=== PATIENT | male | born 1995 | race Caucasian/White ===

== ENCOUNTER 2019-04-06 17:20 | Inpatient (IN) ==
--- NOTE | 2019-04-06 19:02 | CT ---
CT facial bones without contrast Indication: Reported right mandibular tooth abscess Comparison: None available Technique: Multiple axial images of the facial structures were obtained from the mandible to superior portions of the orbits. Dose reduction techniques including automated exposure control (AEC) and adjustment of mA and kV were utilized. Findings: There is marked inflammatory change skin thickening and fluid noted within the right perimandibular soft tissues extending to the level of the mandibular body. There is a fluid collection within the right submandibular soft tissues measuring approximately 4.4 x 3.5 cm with a tiny focus of gas consistent with a phlegmon/abscess. Lack of IV contrast administration makes definitive size measurement limited. There are enlarged submandibular, submental and upper cervical chain lymph nodes. The mandibular and maxillary teeth demonstrate several cavities however there is no definite cortical or tract identified to suggest a source of abscess. There is mild right maxillary sinus mucosal thickening. Orbits are normal. IMPRESSION: 1.Severe inflammatory process within the right perimandibular soft tissues with a large abscess/phlegmon within the right submandibular soft tissues. There are reactive enlarged submental, submandibular and upper cervical lymph nodes. 2. No definitive source of infection as there is no mandibular cortical destruction, osteomyelitis or sinus tract within to suggest peridontal abscess /periodontal disease. 3. Several cavities are noted within the maxillary and mandibular teeth. Reported By:
--- NOTE | 2019-04-06 19:04 | DR.GENAD ---
HPI Time Seen Time Seen by Provider: 04/06/19 18:16 PCP Primary Care Physician: DR LIRIANO Complaint/Symptoms Chief Complaint Doctors Comments: A 23 y/o male who was sent to the ED to get a CT Scan done. He has had tooth infection for about 2 weeks now and has completed Clindamycin followed by Keflex. He noted jaw swelling with this. It is much swollen today than it was yesterday. He has had no fever. His PCP was trying to do an incision today and the pt. felt some drainage in his mouth. The procedure was stopped and he was sent to the ED to get a CT Scan to r/o abscess. Chief Complaint:: PT HAS HAD ABCESSED TOOTH ON RIGHT LOWER JAW ABOUT 2 WEEKS AGO. PT HAS BEEN TREATED WITH CLINDAMYCIN AND KEFLEX OUTPATIENT. PT WAS SEEN BY DR LIRIANO TODAY WHO ATTEMPTED TO DAO AREA BUT DECIDED TO SEND PT FOR CT SCAN FIRST. PT C/O CONSTANT THROBBING SEVERE PAIN INTO RIGHT LOWER JAW. Self Treatment fo Chief Complaint: TOOK IBUPROFEN AND TRAMADOL WITH NO RELIEF Nurses notes reviewed Nurses Notes Review: Yes Source History Provided: Patient and Parent Mode of Arrival Mode of Arrival: Ambulatory Timing Onset of Chief Complaint: 03/23/19 Came on: Gradually Duration Duration: Constant Location Location: Rt. jaw/lower tooth PMH PMH Past Medical History: Yes Past Medical History: Diabetes Past Medical History Comment: TYPE 1 DIABETES Past Surgical History: No Family History History of Family Medical Conditions: Yes Family Medical History: Diabetes Mellitus, Coronary Artery Disease and Hypertension Social History Does patient currently use any type of tobacco product: Yes Have you used tobacco products in the last 12 months: Yes Type of Tobacco Use: Cigarettes Does any household member use tobacco: Yes Alcohol Use: None Do you use any recreational Drugs:: No Lives With: Family Lives Where: Home infectious screening In the last 2 months have you had wt loss of >10#?: NO Have you had fever, night sweats or hemotysis?: No Have you traveled outside the country in the last 6 months?: No Isolation: Standard ROS Review of Systems Constitutional: No Symptoms Reported Eyes: No Symptoms Reported ENTM: Mouth Pain and Tooth/Dental Pain Respiratoy: No Symptoms Reported Cardiovascular: No Symptoms Reported Gastrointestinal/Abdominal: No Symptoms Reported Genitourinary: No Symptoms Reported Neurological: No Symptoms Reported Musculoskeletal: No Symptoms Reported Integumentary: No Symptoms Reported Hematologic/Lymphatic: No Symptoms Reported Endocrine: No Symptoms Reported Psychiatric: No Symptoms Reported PE Vital Signs Vitals: Temperature 98.8 F Pulse Rate 105 Respiratory Rate 20 Blood Pressure 131/79 O2 Sat by Pulse Oximetry 95 General Limitations: No Limitations General Appearance: Alert and In No Apparent Distress Head Head Exam: Normal Inspection, Atraumatic and Normocephalic Eyes Eye exam: PERRL and Scleral Icterus ENT ENT Exam: Normal Oropharynx and Mucous Membranes Moist Mouth Exam: Other (There is fullness to Rt. mandibullar gingiva at about mid area. There is tenderness but no erythema. ) Neck Neck Exam: Normal Inspection, Full ROM and Trachea Midline Chest Chest Inspection: Normal Inspection and Symmetric Chest Wall Rise Respiratory Respiratory Exam: Normal Lung Sounds Bilat Cardiovascular Cardiovascular Exam: Regular Rate, Normal Rhythm, Normal Heart Sounds, +S1 and +S2 Abdominal Exam Abdominal Exam: Normal Inspection, Normal Bowel Sounds and Soft Extremities Extremities Exam: Normal Inspection, Full ROM and Tenderness Back Back Exam: Normal Inspection and Full ROM Neurologic Neurological Exam: Alert, Oriented X3 and Normal Gait Psychiatric Psychiatric Exam: Normal Affect and Normal Mood Skin Skin Exam: Erythema and Other (swollen Rt. chin and anterior jaw with erythema.) Opioid Opioid Risk Tool Age (Roberto box if 16-45): Yes History of Preadolescent Sexual Abuse: No Total: 1 Total Score Risk Category: Low Risk Copyright: Bonilla SKY predicting aberrant behaviors Diagnosis Discharge Problem: Abscess of mandible, Dental cavities Instructions Forms: Excuse From Work
[2019-04-06] MEDS ORDERED: ZOSYN VIAL 3.375 GRAMS 3.375 G in NS 100 ML IV + SPIKE MINIBAG* 100 ML IV ONE (19:55)
[2019-04-06] MEDS ORDERED: NS 1000 ML 1,000 ML ONE (19:59)
[2019-04-06] MEDS ORDERED: ZOSYN VIAL 3.375 GRAMS IV ONE (20:00)
[2019-04-06] MEDS ORDERED: NS 100 ML IV + SPIKE MINIBAG* 100 ML ONE (20:00)
[2019-04-06 20:11] LABS: BASOPHILS % (AUTO) 0.2 % (0.2-1.0); EOSINOPHILS % (AUTO) 0.3 % (0.9-2.9); HEMATOCRIT 47.5 % (42.0-54.0); HEMOGLOBIN 16.2 g/dL (13.5-18.0); LYMPHOCYTES # (AUTO) 1.1 X10^3/uL (1.3-2.9); MEAN CORPUSCULAR HEMOGLOBIN 32.2 pg (27.0-34.0); MEAN CORPUSCULAR VOLUME 94.7 fL (80.0-100.0); MEAN PLATELET VOLUME 8.6 fL (7.4-11.0); MONOCYTES # (AUTO) 0.7 x10^3/uL (0.3-0.8); MONOCYTES % (AUTO) 4.9 % (0.0-13.0); NEUTROPHILS # (AUTO) 11.5 x10^3/uL (2.2-4.8); NEUTROPHILS % (AUTO) 86.6 % (42.0-75.0); PLATELET COUNT 351 X10^3/uL (150.0-450.0); RED BLOOD COUNT 5.02 X10^6/uL (4.7-6.0); RED CELL DISTRIBUTION WIDTH 12.5 % (11.6-16.5); WHITE BLOOD COUNT 13.3 X10^3/uL (3.6-10.0)
[2019-04-06] MEDS: NS 1000 ML 1,000 ML IV SCH (20:15)
[2019-04-06 20:23] LABS: ALANINE AMINOTRANSFERASE 42 Units/L (12-78); ALBUMIN 3.9 g/dL (3.4-5.0); ALKALINE PHOSPHATASE 205 Units/L (46-116); ASPARTATE AMINO TRANSFERASE 17 Units/L (15-37); BLOOD UREA NITROGEN 11 mg/dL (7-18); CALCIUM 9.1 mg/dL (8.5-10.1); CARBON DIOXIDE 15.9 mmol/L (21-32); CHLORIDE 90 mmol/L (98-107); SODIUM 131 mmol/L (136-145); TOTAL PROTEIN 8.9 g/dL (6.4-8.2); eGFR NON BLACK RACES > 60 (>60)
[2019-04-06 20:25] LABS: COR NA(FOR HYPERGLY) 142 mmol/L (136-145)
[2019-04-06] MEDS: HumuLIN R SC PRN (20:27)
[2019-04-06] MEDS: PERCOCET TAB 5/325 MG PO PRN (21:05)
[2019-04-06] MEDS ORDERED: LANTUS SC SCH (22:00)
[2019-04-06] MEDS: ZOSYN VIAL 3.375 GRAMS IV SCH (22:24)
[2019-04-06] MEDS: LANTUS SC SCH (22:39)
[2019-04-07] MEDS: TYLENOL 325 MG TAB PO PRN (03:30)
[2019-04-07] MEDS: NS 1000 ML 1,000 ML IV SCH ×3 (04:53→21:07)
[2019-04-07 05:20] LABS: BASOPHILS % (AUTO) 0.3 % (0.2-1.0); EOSINOPHILS # (AUTO) 0.1 x10^3/uL (0.0-0.2); EOSINOPHILS % (AUTO) 0.5 % (0.9-2.9); HEMATOCRIT 39.7 % (42.0-54.0); LYMPHOCYTES # (AUTO) 0.9 X10^3/uL (1.3-2.9); LYMPHOCYTES % (AUTO) 7.8 % (21.0-51.0); MEAN CORPUSCULAR HEMOGLOBIN 32.9 pg (27.0-34.0); MEAN CORPUSCULAR HGB CONC 35.9 g/dL (33.0-35.0); MEAN CORPUSCULAR VOLUME 91.5 fL (80.0-100.0); MEAN PLATELET VOLUME 8.8 fL (7.4-11.0); MONOCYTES # (AUTO) 0.5 x10^3/uL (0.3-0.8); MONOCYTES % (AUTO) 4.4 % (0.0-13.0); NEUTROPHILS # (AUTO) 9.5 x10^3/uL (2.2-4.8); PLATELET COUNT 297 X10^3/uL (150.0-450.0); RED BLOOD COUNT 4.33 X10^6/uL (4.7-6.0); RED CELL DISTRIBUTION WIDTH 12.3 % (11.6-16.5)
[2019-04-07 05:22] LABS: ALANINE AMINOTRANSFERASE 30 Units/L (12-78); ALKALINE PHOSPHATASE 154 Units/L (46-116); ASPARTATE AMINO TRANSFERASE 12 Units/L (15-37); BLOOD UREA NITROGEN 11 mg/dL (7-18); CALCIUM 8.3 mg/dL (8.5-10.1); CARBON DIOXIDE 21.7 mmol/L (21-32); CHLORIDE 99 mmol/L (98-107); COR CA(FOR HYPOALB) 9.1 mg/dL (8.5-10.1); COR NA(FOR HYPERGLY) 137 mmol/L (136-145); CREATININE 0.74 mg/dL (0.70-1.30); SODIUM 135 mmol/L (136-145); TOTAL PROTEIN 7.3 g/dL (6.4-8.2); eGFR NON BLACK RACES > 60 (>60)
[2019-04-07] MEDS ORDERED: NS 100 ML IV + SPIKE MINIBAG* 100 ML ONE (05:40)
[2019-04-07] MEDS: ZOSYN VIAL 3.375 GRAMS IV SCH (06:08)
[2019-04-07 06:13] LABS: HEMOGLOBIN 14.2 g/dL (13.5-18.0)
[2019-04-07] MEDS ORDERED: POTASSIUM CHL 40 MEQ/NS 0.45% 500 ML IV PRN (06:33)
[2019-04-07] MEDS ORDERED: POTASSIUM CHLORIDE LIQ 20 MEQ UDC PO PRN (06:33)
[2019-04-07] MEDS ORDERED: KLOR-CON PO PRN (06:33)
[2019-04-07] MEDS ORDERED: MICRO K EXTEN CAP 10 MEQ PO PRN (06:33)
[2019-04-07] MEDS ORDERED: K-RIDER 10 MEQ/NS 100 ML 10 MEQ/100 ML BAG IV PRN (06:33)
[2019-04-07] MEDS ORDERED: POTASSIUM CHL 60 MEQ/NS 0.45% 500 ML IV PRN (06:33)
[2019-04-07] MEDS: PERCOCET TAB 5/325 MG PO PRN ×3 (08:22→21:08)
--- NOTE | 2019-04-07 08:55 | RAD ---
History: Wheezing. Facial abscess. Study: PA chest graph comparison: None Findings: The lungs are clear and the heart and mediastinum are unremarkable. There is no edema or effusion or congestion. No bony abnormality is suggested. Impression: No evidence for active cardiopulmonary disease Reported By:
[2019-04-07 09:30] LABS: ABG HCO3 25.2 mmol/L (22-26)
[2019-04-07] MEDS: HumuLIN R SC PRN ×3 (11:58→21:18)
[2019-04-07] MEDS: ZOSYN VIAL 3.375 GRAMS 3.375 G in NS 100 ML IV + SPIKE MINIBAG* 100 ML IV SCH ×2 (14:38→22:40)
[2019-04-07 15:26] LABS: ALANINE AMINOTRANSFERASE 27 Units/L (12-78); ALKALINE PHOSPHATASE 148 Units/L (46-116); ASPARTATE AMINO TRANSFERASE 13 Units/L (15-37); BLOOD UREA NITROGEN 7 mg/dL (7-18); CALCIUM 8.4 mg/dL (8.5-10.1); CARBON DIOXIDE 24.8 mmol/L (21-32); CHLORIDE 98 mmol/L (98-107); COR CA(FOR HYPOALB) 9.2 mg/dL (8.5-10.1); COR NA(FOR HYPERGLY) 137 mmol/L (136-145); CREATININE 0.75 mg/dL (0.70-1.30); SODIUM 134 mmol/L (136-145); TOTAL PROTEIN 7.3 g/dL (6.4-8.2); eGFR NON BLACK RACES > 60 (>60)
[2019-04-07] MEDS ORDERED: TORADOL 30 MG VIAL IVP ONE (15:30)
[2019-04-07] MEDS ORDERED: MAGNESIUM SULFATE 1 GRAM/100 mL PREMIX 1 G/100 ML BAG IV ONE (17:44)
[2019-04-07] MEDS: MAGNESIUM SULFATE 1 GRAM/100 mL PREMIX 1 GM/100 ML BAG IV PRN (17:45)
[2019-04-07] MEDS: K-DUR TAB 20 MEQ PO PRN (17:45)
[2019-04-07] MEDS ORDERED: DILAUDID INJ IVP PRN (18:12)
--- NOTE | 2019-04-07 18:19 | DR.H&P ---
H&P - History & Physical for Day of: H&P Date: 04/06/19 - Chief Complaint Chief Complaint: FEVER, RIGHT JAW SWELLING WITH ABSCESS AND PAIN, DENTAL PAIN - History of Present Illness History of Present Illness: PT 23 WM ER ADMISSION AFTER PRESENTING WITH CO HE HAD ABCESSED TOOTH ON RIGHT LOWER JAW ABOUT 2 WEEKS AGO. PT HAS BEEN TREATED WITH CLINDAMYCIN AND KEFLEX OUTPATIENT. PT WAS SEEN BY DR LIRIANO'S OFFICE TODAY WHO ATTEMPTED TO DAO AREA BUT DECIDED TO SEND PT FOR CT SCAN FIRST. PT C/O CONSTANT THROBBING SEVERE PAIN INTO RIGHT LOWER JAW. PT IS TYPE I DM WITH ELEVATED BLOOD SUGAR AND FEVER ON ADMISSION. PT ADMITTED FOR IV ATBX THERAPY, PAIN CONTROL, POSSIBLE SURGICAL I & D - Past Medical History Past Medical History: Diabetes - Past Surgical History Surgical History: No History - Family History Family Medical History: Diabetes Mellitus, Coronary Artery Disease, Hypertension - Social History Does patient currently use any type of tobacco product: Yes Have you used tobacco products in the last 12 months: Yes Type of Tobacco Use: Cigarettes Does any household member use tobacco: Yes Alcohol Use: None Drug Use: None - Medications Home Medications: lorazepam [From Ativan] Allergy (Verified 04/06/19 17:33) CONTINUE taking the following medications insulin glargine [Lantus U-100 Insulin] 30 units SUBCUT HS 04/06/19 [History] insulin regular human [Novolin R Regular U-100 Insuln] See Rx Instructions .ROUTE .COMPLEX 04/06/19 [History] - Review of Systems Constitutional: Fever, Sweats Eyes: No Symptoms Reported ENT: Mouth Pain, Mouth Swelling Respiratory: No Symptoms Reported Cardiovascular: No Symptoms Reported Gastrointestinal: No Symptoms Reported Genitourinary: No Symptoms Reported Musculoskeletal: No Symptoms Reported Skin: Wound (RIGHT CHEEK, JAW AND SUBMADIBULAR ) Neurological: No Symptoms Reported - Physical Exam Vital Signs: Temperature 101.5 F Pulse Rate [Right Brachial] 94 Pulse Rate 105 Respiratory Rate 16 Blood Pressure [Right Arm] 131/76 Blood Pressure 131/79 O2 Sat by Pulse Oximetry 98 Oriented: Normal Eyes: Normal Ear: Normal Nose: Normal Throat: Normal Respiratory: RLL Exp. Wheeze, LLL Exp. Wheeze Cardiovascular: Normal : Normal Auscultation: Bowel Sounds: Normal Palpation: Normal Tenderness: Normal Skin: Red, Tender, Hot, Wound (RIGHT JAWLINE, CHEEK AND SUBMANDIBULAR EDEMA WITH DIFFUSE REDNESS, WARMTH, TENDERNESS OPEN WOUND WITHOUT D/C UNDER RIGHT JAW LINE) Musculoskeletal: Normal Psychiatric: Anxiety Affect: Anxious Speech Pattern: Clear, Appropriate - Assessment/Plan (1) Facial cellulitis Status: Acute Plan: ADMIT, IV ZOSYN. FEVER AND PAIN CONTROL. IV HYDRATION, SSI THERAPY. BLOOD SUGAR CONTROL, ADMISSION LABS INCLUDING BLOOD CULTURES. ORAL D/C CULTURE (2) Abscess of mandible Status: Acute (3) Dental cavities Status: Acute (4) Diabetes 1.5, managed as type 1 Status: Acute - Allergies Allergies/Adverse Reactions: Allergies Allergy/AdvReac Type Severity Reaction Status Date / Time lorazepam [From Ativan] Allergy Verified 04/06/19 17:33
--- NOTE | 2019-04-07 18:26 | PCM.PROG ---
Progress Note - Progress Note for Day of Date of Exam: 04/07/19 - Subjective Subjective: 23 WM ER ADMISSION LAST PM WITH RIGHT FACIAL CELLULITIS AND large abscess/phlegmon within the right submandibular soft tissues CONFIRMED ON CT. PT HAS BEEN ON IV ZOSYN SINCE ADMISSION, PREVIOUSLY FAILED ON ORAL CLINDAMYCIN AND KEFLEX PO ON OUTPT BASIS. PT HAD CO SEVERE THROBBING PAIN THIS AM, NOT CONTROLLED ON PO PERCOCET. BLOOD CULTURES OBTAIN, ORAL D/C OBTAINED FOR CULTURE. CONSULTED DR APARICIO FOR EVALUATIO OF POSSIBLE I&D. BS CONTROL, WBC 11, CO2 ON CMP IMPROVED TO 24.8. MAGNESIUM REPLACEMENT ORDERED. - Past Medical Family Social History Past Med/Fam/Surg Hx: No changes since H&P Allergies: Allergies lorazepam [From Ativan] Allergy (Verified 04/06/19 17:33) - Review of Systems ROS: No change since H&P - Vital Signs and I&O's Vital Signs: Temperature 101.5 F Pulse Rate [Right Brachial] 94 Pulse Rate 105 Respiratory Rate 16 Blood Pressure [Right Arm] 131/76 Blood Pressure 131/79 O2 Sat by Pulse Oximetry 98 Intake and Output: Intake & Output 04/05/19 04/06/19 04/07/19 04/08/19 11:59 11:59 11:59 11:59 Intake Total 360 / 360 480 / 480 Balance 360 / 360 480 / 480 - Physical Exam Oriented: Normal Eyes: Normal Ear: Normal Nose: Normal Throat: Normal Respiratory: Wheezes (MILD UPPER EXP WHEEZE) Cardiovascular: Normal : Normal Auscultation: Bowel Sounds: Normal Tenderness: Normal Skin: Red, Tender, Hot, Wound (RIGHT JAWLINE, CHEEK AND SUBMANDIBULAR EDEMA WITH DIFFUSE REDNESS, WARMTH, TENDERNESS OPEN WOUND WITHOUT D/C UNDER RIGHT JAW LINE) Musculoskeletal: Normal Psychiatric: Anxiety Affect: Anxious Speech Pattern: Clear, Appropriate - Laboratory and Diagnostics Result Diagrams: 04/07/19 04:24 04/07/19 15:00 Labs: 04/07/19 08:30 Mouth Gram Stain - Final Laboratory WBC 11.0 X10^3/uL (3.6-10.0) H 04/07/19 04:24 RBC 4.33 X10^6/uL (4.7-6.0) L 04/07/19 04:24 Hgb 14.2 g/dL (13.5-18.0) D 04/07/19 04:24 Hct 39.7 % (42.0-54.0) L 04/07/19 04:24 MCV 91.5 fL (80.0-100.0) 04/07/19 04:24 MCH 32.9 pg (27.0-34.0) 04/07/19 04:24 MCHC 35.9 g/dL (33.0-35.0) H 04/07/19 04:24 RDW 12.3 % (11.6-16.5) 04/07/19 04:24 Plt Count 297 X10^3/uL (150.0-450.0) 04/07/19 04:24 MPV 8.8 fL (7.4-11.0) 04/07/19 04:24 Neut % (Auto) 87.0 % (42.0-75.0) H 04/07/19 04:24 Lymph % (Auto) 7.8 % (21.0-51.0) L 04/07/19 04:24 [place] % (Auto) 4.4 % (0.0-13.0) 04/07/19 04:24 Eos % (Auto) 0.5 % (0.9-2.9) L 04/07/19 04:24 Baso % (Auto) 0.3 % (0.2-1.0) 04/07/19 04:24 Neut # (Auto) 9.5 x10^3/uL (2.2-4.8) H 04/07/19 04:24 Lymph # (Auto) 0.9 X10^3/uL (1.3-2.9) L 04/07/19 04:24 [place] # (Auto) 0.5 x10^3/uL (0.3-0.8) 04/07/19 04:24 Eos # (Auto) 0.1 x10^3/uL (0.0-0.2) 04/07/19 04:24 Baso # (Auto) 0.0 X10^3/uL (0.0-0.1) 04/07/19 04:24 Absolute Nucleated RBC 0.1 /100WBC 04/07/19 04:24 ESR 29 MM/HOUR (0-15) H 04/07/19 15:00 Sample Site Rb 04/07/19 09:20 ABG pH 7.430 (7.35-7.45) 04/07/19 09:20 ABG pCO2 38.0 mmHg (35.0-45.0) 04/07/19 09:20 ABG pO2 73.0 mmHg (80.0-100.0) L 04/07/19 09:20 ABG HCO3 25.2 mmol/L (22-26) 04/07/19 09:20 ABG O2 Saturation 95.0 % (90-100) 04/07/19 09:20 ABG Base Excess 1.0 mmol/L (-2.0-2.0) 04/07/19 09:20 Clint Test Na 04/07/19 09:20 A-a Gradient 29.0 mmHg 04/07/19 09:20 FiO2 21.0 04/07/19 09:20 Blood Gas Comments Pt trista well. cdn 04/07/19 09:20 Sodium 134 mmol/L (136-145) L 04/07/19 15:00 Corrected Sodium 137 mmol/L (136-145) 04/07/19 15:00 Potassium 3.4 mmol/L (3.5-5.1) L 04/07/19 15:00 Chloride 98 mmol/L (98-107) 04/07/19 15:00 Carbon Dioxide 24.8 mmol/L (21-32) 04/07/19 15:00 BUN 7 mg/dL (7-18) 04/07/19 15:00 Creatinine 0.75 mg/dL (0.70-1.30) 04/07/19 15:00 Est GFR (MDRD) Af Amer > 60 (>60) 04/07/19 15:00 Est GFR (MDRD) Non-Af > 60 (>60) 04/07/19 15:00 Glucose 245 mg/dL (65-99) H 04/07/19 15:00 Calcium 8.4 mg/dL (8.5-10.1) L 04/07/19 15:00 Corrected Calcium 9.2 mg/dL (8.5-10.1) 04/07/19 15:00 Magnesium 1.3 mg/dL (1.7-2.9) L 04/07/19 04:24 Total Bilirubin 0.30 mg/dL (0.2-1.0) 04/07/19 15:00 AST 13 Units/L (15-37) L 04/07/19 15:00 ALT 27 Units/L (12-78) 04/07/19 15:00 Alkaline Phosphatase 148 Units/L (46-116) H 04/07/19 15:00 C-Reactive Protein 35.50 mg/L (0-3.0) H 04/07/19 15:00 Total Protein 7.3 g/dL (6.4-8.2) 04/07/19 15:00 Albumin 3.0 g/dL (3.4-5.0) L 04/07/19 15:00 Globulin 4.3 g/dL (2.5-4.5) 04/07/19 15:00 Albumin/Globulin Ratio 0.7 Ratio (1.1-2.1) L 04/07/19 15:00 - Plan (1) Facial cellulitis Status: Acute Plan: IV ZOSYN. FEVER AND PAIN CONTROL. IV HYDRATION, SSI THERAPY. BLOOD SUGAR CONTROL, ADMISSION LABS INCLUDING BLOOD CULTURES. ORAL D/C CULTURE, CRP AND SED RATE. MAGNESIUM REPLACEMENT (2) Abscess of mandible Status: Acute (3) Dental cavities Status: Acute (4) Diabetes 1.5, managed as type 1 Status: Acute (5) Hypomagnesemia Status: Acute
[2019-04-07] MEDS: SNACK - Diabetic Appropriate PO SCH (21:08)
[2019-04-07] MEDS: VANCOMYCIN HCL 1 GM VIAL 1 G in D5W 250 ML IV 250 ML IV SCH (21:13)
[2019-04-07] MEDS: LANTUS SC SCH (21:21)
[2019-04-07] MEDS: PERIDEX or PERIOGARD MT SCH (23:23)
[2019-04-08] MEDS: MAGNESIUM SULFATE 1 GRAM/100 mL PREMIX 1 GM/100 ML BAG IV PRN ×3 (02:20→04:30)
[2019-04-08] MEDS: TYLENOL 325 MG TAB PO PRN (04:25)
[2019-04-08] MEDS: NS 1000 ML 1,000 ML IV SCH ×3 (04:34→20:09)
[2019-04-08 05:02] LABS: BASOPHILS % (AUTO) 0.2 % (0.2-1.0); EOSINOPHILS # (AUTO) 0.1 x10^3/uL (0.0-0.2); EOSINOPHILS % (AUTO) 0.6 % (0.9-2.9); HEMATOCRIT 39.9 % (42.0-54.0); HEMOGLOBIN 13.8 g/dL (13.5-18.0); LYMPHOCYTES % (AUTO) 10.7 % (21.0-51.0); MEAN CORPUSCULAR HGB CONC 34.7 g/dL (33.0-35.0); MEAN CORPUSCULAR VOLUME 92.3 fL (80.0-100.0); MONOCYTES # (AUTO) 0.7 x10^3/uL (0.3-0.8); MONOCYTES % (AUTO) 7.2 % (0.0-13.0); NEUTROPHILS % (AUTO) 81.3 % (42.0-75.0); PLATELET COUNT 281 X10^3/uL (150.0-450.0); RED BLOOD COUNT 4.32 X10^6/uL (4.7-6.0); RED CELL DISTRIBUTION WIDTH 12.6 % (11.6-16.5); WHITE BLOOD COUNT 9.8 X10^3/uL (3.6-10.0)
[2019-04-08 05:16] LABS: HEMOGLOBIN A1C 12.4 %
[2019-04-08 05:22] LABS: ALANINE AMINOTRANSFERASE 26 Units/L (12-78); ALBUMIN 2.9 g/dL (3.4-5.0); ALKALINE PHOSPHATASE 142 Units/L (46-116); ASPARTATE AMINO TRANSFERASE 20 Units/L (15-37); BLOOD UREA NITROGEN 7 mg/dL (7-18); CALCIUM 8.4 mg/dL (8.5-10.1); CARBON DIOXIDE 22.4 mmol/L (21-32); CHLORIDE 97 mmol/L (98-107); COR CA(FOR HYPOALB) 9.3 mg/dL (8.5-10.1); COR NA(FOR HYPERGLY) 139 mmol/L (136-145); CREATININE 0.68 mg/dL (0.70-1.30); SODIUM 133 mmol/L (136-145); TOTAL PROTEIN 6.9 g/dL (6.4-8.2); eGFR NON BLACK RACES > 60 (>60)
[2019-04-08] MEDS: VANCOMYCIN HCL 1 GM VIAL 1 G in D5W 250 ML IV 250 ML IV SCH (06:00)
[2019-04-08] MEDS: HumuLIN R SC PRN ×4 (06:00→21:20)
[2019-04-08] MEDS: ZOSYN VIAL 3.375 GRAMS 3.375 G in NS 100 ML IV + SPIKE MINIBAG* 100 ML IV SCH ×3 (07:17→22:01)
[2019-04-08] MEDS ORDERED: NS IRRIGATION 1000 ML ONE (09:40)
[2019-04-08] MEDS ORDERED: FENTANYL INJ 100 mcg ONE (10:38)
[2019-04-08] MEDS ORDERED: MORPHINE SULFATE INJ 10 MG ONE (10:39)
[2019-04-08] MEDS ORDERED: NS 1000 ML 1,000 ML ONE (10:47)
[2019-04-08] MEDS ORDERED: HumuLIN R ONE ×2 (11:00→12:42)
[2019-04-08] MEDS ORDERED: BACITRACIN VIAL ONE (11:28)
[2019-04-08] MEDS ORDERED: PHENERGAN INJ 25 MG IM PRN (12:30)
[2019-04-08] MEDS ORDERED: ZOFRAN INJ 4 MG VIAL IVP PRN (12:30)
[2019-04-08] MEDS ORDERED: DILAUDID INJ IVP PRN (12:30)
[2019-04-08] MEDS ORDERED: BENADRYL INJ 50 MG VIAL IVP PRN (12:30)
[2019-04-08] MEDS ORDERED: REGLAN INJ 10 MG VIAL IVP PRN (12:30)
--- NOTE | 2019-04-08 12:36 | OR.IMMED ---
Immediate Post-Op Note - Immediate Post-Op Note Pre-Op Diagnosis: large Rt submandibular abscess .with necrosis . DM. Post-Op Diagnosis: large necrotic abscess Rt submandibular area [id number] with cellulitis extending to the neck and face . Procedure: debridement and drainage of Rt submandibular abscess 3x2x2 cm. irrigation and packin with iodoform Surgeon/Certified Master Safecracker: Nile Estimated Blood Loss: 15 cc Condition: Stable Post Hospital Plans and Medications: change dressing daily and PRN . same IV ATB ..
[2019-04-08] MEDS ORDERED: NS 250 ML IV 250 ML ONE (13:49)
[2019-04-08] MEDS: VANCOMYCIN HCL 1 GM VIAL 1 G in NS 250 ML IV 250 ML IV SCH ×2 (14:11→21:03)
[2019-04-08] MEDS ORDERED: DIPRIVAN VIAL ONE (15:30)
[2019-04-08] MEDS ORDERED: XYLOCAINE 1 % (PLAIN) ONE (15:30)
[2019-04-08] MEDS ORDERED: VERSED ONE (15:30)
[2019-04-08] MEDS ORDERED: ULTANE GAS ONE (15:30)
[2019-04-08] MEDS ORDERED: ZOFRAN INJ 4 MG VIAL ONE (15:30)
[2019-04-08] MEDS ORDERED: TORADOL 30 MG VIAL ONE (15:30)
--- NOTE | 2019-04-08 15:33 | PCM.PROG ---
Progress Note - Progress Note for Day of Date of Exam: 04/08/19 - Subjective Subjective: 23 WM ER ADMISSION LAST PM WITH RIGHT FACIAL CELLULITIS AND large abscess/phlegmon within the right submandibular soft tissues CONFIRMED ON CT. PT HAS BEEN ON IV ZOSYN SINCE ADMISSION, PREVIOUSLY FAILED ON ORAL CLINDAMYCIN AND KEFLEX PO ON OUTPT BASIS. PT WBC 9.8 THIS AM, PT WAS FEBRILE DURING THE NIGHT, HAD ONE DOSE OF TORADOL FOR FEVER AND PAIN WHICH PT REPORTED RELIEF AND RECEIVED ONE DOSE OF IV DILAUDID DURING THE NIGHT FOR PAIN. PT IS NPO FOR SURGICAL I&D THIS AM PER DR APARICIO. WILL CONTINUE POST OPERATIVE PLAN OF CARE. BS CONTROL, INCREASED BASAL INSULIN TO 26UNITS DAILY. - Past Medical Family Social History Past Med/Fam/Surg Hx: No changes since H&P Allergies: Allergies lorazepam [From Ativan] Allergy (Verified 04/06/19 17:33) - Review of Systems ROS: No change since H&P - Vital Signs and I&O's Vital Signs: Temperature 98.0 F Pulse Rate [Right Brachial] 97 Pulse Rate 81 Respiratory Rate 18 Blood Pressure [Right Arm] 124/78 Blood Pressure [Left Arm] 126/76 Blood Pressure 120/63 O2 Sat by Pulse Oximetry 99 Intake and Output: Intake & Output 04/06/19 04/07/19 04/08/19 04/09/19 11:59 11:59 11:59 11:59 Intake Total 360 / 360 1240 / 1240 Balance 360 / 360 1240 / 1240 - Physical Exam Oriented: Normal Eyes: Normal Ear: Normal Nose: Normal Throat: Normal Respiratory: Normal Cardiovascular: Normal : Normal Auscultation: Bowel Sounds: Normal Tenderness: Normal Skin: Red, Tender, Hot, Wound (arge necrotic abscess Rt submandibular area [id number] with cellulitis extending to the neck and face .) Musculoskeletal: Normal Psychiatric: Anxiety Affect: Anxious Speech Pattern: Clear, Appropriate - Laboratory and Diagnostics Result Diagrams: 04/08/19 04:06 04/08/19 04:06 Labs: 04/08/19 12:00 Drainage Gram Stain - Final 04/07/19 08:30 Mouth Gram Stain - Final 04/07/19 08:30 Mouth Wound Culture - Preliminary Laboratory WBC 9.8 X10^3/uL (3.6-10.0) 04/08/19 04:06 RBC 4.32 X10^6/uL (4.7-6.0) L 04/08/19 04:06 Hgb 13.8 g/dL (13.5-18.0) 04/08/19 04:06 Hct 39.9 % (42.0-54.0) L 04/08/19 04:06 MCV 92.3 fL (80.0-100.0) 04/08/19 04:06 MCH 32.0 pg (27.0-34.0) 04/08/19 04:06 MCHC 34.7 g/dL (33.0-35.0) 04/08/19 04:06 RDW 12.6 % (11.6-16.5) 04/08/19 04:06 Plt Count 281 X10^3/uL (150.0-450.0) 04/08/19 04:06 MPV 9.0 fL (7.4-11.0) 04/08/19 04:06 Neut % (Auto) 81.3 % (42.0-75.0) H 04/08/19 04:06 Lymph % (Auto) 10.7 % (21.0-51.0) L 04/08/19 04:06 [place] % (Auto) 7.2 % (0.0-13.0) 04/08/19 04:06 Eos % (Auto) 0.6 % (0.9-2.9) L 04/08/19 04:06 Baso % (Auto) 0.2 % (0.2-1.0) 04/08/19 04:06 Neut # (Auto) 8.0 x10^3/uL (2.2-4.8) H 04/08/19 04:06 Lymph # (Auto) 1.0 X10^3/uL (1.3-2.9) L 04/08/19 04:06 [place] # (Auto) 0.7 x10^3/uL (0.3-0.8) 04/08/19 04:06 Eos # (Auto) 0.1 x10^3/uL (0.0-0.2) 04/08/19 04:06 Baso # (Auto) 0.0 X10^3/uL (0.0-0.1) 04/08/19 04:06 Absolute Nucleated RBC 0.2 /100WBC 04/08/19 04:06 ESR 29 MM/HOUR (0-15) H 04/07/19 15:00 Sample Site Rb 04/07/19 09:20 ABG pH 7.430 (7.35-7.45) 04/07/19 09:20 ABG pCO2 38.0 mmHg (35.0-45.0) 04/07/19 09:20 ABG pO2 73.0 mmHg (80.0-100.0) L 04/07/19 09:20 ABG HCO3 25.2 mmol/L (22-26) 04/07/19 09:20 ABG O2 Saturation 95.0 % (90-100) 04/07/19 09:20 ABG Base Excess 1.0 mmol/L (-2.0-2.0) 04/07/19 09:20 Clint Test Na 04/07/19 09:20 A-a Gradient 29.0 mmHg 04/07/19 09:20 FiO2 21.0 04/07/19 09:20 Blood Gas Comments Pt trista well. cdn 04/07/19 09:20 Sodium 133 mmol/L (136-145) L 04/08/19 04:06 Corrected Sodium 139 mmol/L (136-145) 04/08/19 04:06 Potassium 3.8 mmol/L (3.5-5.1) 04/08/19 04:06 Chloride 97 mmol/L (98-107) L 04/08/19 04:06 Carbon Dioxide 22.4 mmol/L (21-32) 04/08/19 04:06 BUN 7 mg/dL (7-18) 04/08/19 04:06 Creatinine 0.68 mg/dL (0.70-1.30) L 04/08/19 04:06 Est GFR (MDRD) Af Amer > 60 (>60) 04/08/19 04:06 Est GFR (MDRD) Non-Af > 60 (>60) 04/08/19 04:06 Glucose 357 mg/dL (65-99) H 04/08/19 04:06 Hemoglobin A1c 12.4 % 04/08/19 04:06 Lactic Acid 2.5 mmol/L (0.4-2.0) H 04/07/19 18:24 Calcium 8.4 mg/dL (8.5-10.1) L 04/08/19 04:06 Corrected Calcium 9.3 mg/dL (8.5-10.1) 04/08/19 04:06 Magnesium 1.3 mg/dL (1.7-2.9) L 04/07/19 04:24 Total Bilirubin 0.40 mg/dL (0.2-1.0) 04/08/19 04:06 AST 20 Units/L (15-37) 04/08/19 04:06 ALT 26 Units/L (12-78) 04/08/19 04:06 Alkaline Phosphatase 142 Units/L (46-116) H 04/08/19 04:06 C-Reactive Protein 35.50 mg/L (0-3.0) H 04/07/19 15:00 Total Protein 6.9 g/dL (6.4-8.2) 04/08/19 04:06 Albumin 2.9 g/dL (3.4-5.0) L 04/08/19 04:06 Globulin 4.0 g/dL (2.5-4.5) 04/08/19 04:06 Albumin/Globulin Ratio 0.7 Ratio (1.1-2.1) L 04/08/19 04:06 Tissue Pathology To follow 04/08/19 12:03 - Plan (1) Facial cellulitis Status: Acute Plan: IV ZOSYN,NPO FOR SURGICAL INTERVENTION THIS AM. FEVER AND PAIN CONTROL. IV HYDRATION, SSI THERAPY. BLOOD SUGAR CONTROL, ADMISSION LABS INCLUDING BLOOD CULTURES. ORAL D/C CULTURE, CRP AND SED RATE. MAGNESIUM REPLACEMENT (2) Abscess of mandible Status: Acute (3) Dental cavities Status: Acute (4) Diabetes 1.5, managed as type 1 Status: Acute (5) Hypomagnesemia Status: Acute
[2019-04-08] MEDS: PERIDEX or PERIOGARD MT SCH ×2 (16:19→21:03)
[2019-04-08] MEDS: SNACK - Diabetic Appropriate PO SCH (19:52)
[2019-04-08] MEDS: PERCOCET TAB 5/325 MG PO PRN (20:10)
[2019-04-08] MEDS ORDERED: PHARMACY COMMENT IV NR (20:30)
[2019-04-08 20:32] LABS: CREATININE 0.77 mg/dL (0.70-1.30); VANCOMYCIN,TROUGH 7.6 ug/mL (15-20)
[2019-04-08] MEDS: LANTUS SC SCH (21:03)
[2019-04-09] MEDS: PERCOCET TAB 5/325 MG PO PRN ×3 (03:13→23:35)
[2019-04-09] MEDS: NS 1000 ML 1,000 ML IV SCH ×4 (04:17→20:42)
[2019-04-09] MEDS: VANCOMYCIN HCL 1 GM VIAL 1 G in NS 250 ML IV 250 ML IV SCH ×3 (05:10→21:03)
[2019-04-09 05:16] LABS: BASOPHILS % (AUTO) 0.3 % (0.2-1.0); EOSINOPHILS # (AUTO) 0.2 x10^3/uL (0.0-0.2); EOSINOPHILS % (AUTO) 2.8 % (0.9-2.9); HEMATOCRIT 34.9 % (42.0-54.0); HEMOGLOBIN 12.2 g/dL (13.5-18.0); LYMPHOCYTES # (AUTO) 1.3 X10^3/uL (1.3-2.9); MEAN CORPUSCULAR HEMOGLOBIN 32.2 pg (27.0-34.0); MEAN CORPUSCULAR HGB CONC 34.9 g/dL (33.0-35.0); MEAN CORPUSCULAR VOLUME 92.2 fL (80.0-100.0); MEAN PLATELET VOLUME 8.7 fL (7.4-11.0); MONOCYTES # (AUTO) 0.6 x10^3/uL (0.3-0.8); MONOCYTES % (AUTO) 8.6 % (0.0-13.0); NEUTROPHILS # (AUTO) 4.4 x10^3/uL (2.2-4.8); NEUTROPHILS % (AUTO) 68.3 % (42.0-75.0); PLATELET COUNT 248 X10^3/uL (150.0-450.0); RED BLOOD COUNT 3.79 X10^6/uL (4.7-6.0); RED CELL DISTRIBUTION WIDTH 12.6 % (11.6-16.5); WHITE BLOOD COUNT 6.4 X10^3/uL (3.6-10.0)
[2019-04-09 05:29] LABS: ALANINE AMINOTRANSFERASE 22 Units/L (12-78); ALBUMIN 2.4 g/dL (3.4-5.0); ALKALINE PHOSPHATASE 113 Units/L (46-116); ASPARTATE AMINO TRANSFERASE 19 Units/L (15-37); BLOOD UREA NITROGEN 6 mg/dL (7-18); CARBON DIOXIDE 26.5 mmol/L (21-32); CHLORIDE 103 mmol/L (98-107); COR CA(FOR HYPOALB) 9.3 mg/dL (8.5-10.1); COR NA(FOR HYPERGLY) 143 mmol/L (136-145); CREATININE 0.73 mg/dL (0.70-1.30); SODIUM 139 mmol/L (136-145); eGFR NON BLACK RACES > 60 (>60)
[2019-04-09] MEDS: ZOSYN VIAL 3.375 GRAMS 3.375 G in NS 100 ML IV + SPIKE MINIBAG* 100 ML IV SCH ×3 (06:24→21:04)
[2019-04-09] MEDS: HumuLIN R SC PRN ×3 (06:25→20:42)
[2019-04-09] MEDS: K-DUR TAB 20 MEQ PO PRN (06:27)
[2019-04-09] MEDS: DIFLUCAN PO SCH (08:50)
[2019-04-09] MEDS: MAGNESIUM SULFATE 1 GRAM/100 mL PREMIX 1 GM/100 ML BAG IV PRN (10:00)
[2019-04-09] MEDS: PERIDEX or PERIOGARD MT SCH ×2 (10:36→20:48)
--- NOTE | 2019-04-09 13:09 | DR.H&P ---
H&P - History & Physical for Day of: H&P Date: 04/09/19 - Chief Complaint Chief Complaint: feeling much better after the drainage . only moderate drainage on the dressing . afebrile today . A1C 12 . - Past Medical History Past Medical History: Diabetes - Past Surgical History Surgical History: No History - Family History Family Medical History: Diabetes Mellitus, Coronary Artery Disease, Hypertension - Social History Does patient currently use any type of tobacco product: Yes Have you used tobacco products in the last 12 months: Yes Type of Tobacco Use: Cigarettes Does any household member use tobacco: Yes Alcohol Use: None Drug Use: None - Medications Home Medications: lorazepam [From Ativan] Allergy (Verified 04/06/19 17:33) CONTINUE taking the following medications insulin glargine [Lantus U-100 Insulin] 30 units SUBCUT HS 04/06/19 [History] insulin regular human [Novolin R Regular U-100 Insuln] See Rx Instructions .ROUTE .COMPLEX 04/06/19 [History] - Review of Systems Skin: Wound (rt sumandibular wound is dry with moderate cellulitis involving the upper neck and lower face .). denies: Other - Physical Exam Vital Signs: Temperature 99.1 F Pulse Rate [Right Brachial] 73 Pulse Rate 81 Respiratory Rate 20 Blood Pressure [Right Arm] 136/82 Blood Pressure [Left Arm] 119/47 Blood Pressure 120/63 O2 Sat by Pulse Oximetry 100 Oriented: Normal - Assessment/Plan (1) Abscess of mandible Status: Acute (2) Dental cavities Status: Acute (3) Facial cellulitis Status: Acute (4) Diabetes 1.5, managed as type 1 Status: Acute (5) Hypomagnesemia Status: Acute - Allergies Allergies/Adverse Reactions: Allergies Allergy/AdvReac Type Severity Reaction Status Date / Time lorazepam [From Ativan] Allergy Verified 04/06/19 17:33
[2019-04-09] MEDS ORDERED: PHARMACY COMMENT IV NR (20:30)
[2019-04-09] MEDS: SNACK - Diabetic Appropriate PO SCH (20:48)
[2019-04-09] MEDS: LANTUS SC SCH (21:02)
[2019-04-10 05:01] LABS: BASOPHILS % (AUTO) 0.4 % (0.2-1.0); EOSINOPHILS # (AUTO) 0.2 x10^3/uL (0.0-0.2); EOSINOPHILS % (AUTO) 3.7 % (0.9-2.9); HEMATOCRIT 34.3 % (42.0-54.0); HEMOGLOBIN 12.1 g/dL (13.5-18.0); LYMPHOCYTES # (AUTO) 1.8 X10^3/uL (1.3-2.9); LYMPHOCYTES % (AUTO) 37.3 % (21.0-51.0); MEAN CORPUSCULAR HEMOGLOBIN 32.7 pg (27.0-34.0); MEAN CORPUSCULAR HGB CONC 35.3 g/dL (33.0-35.0); MEAN CORPUSCULAR VOLUME 92.4 fL (80.0-100.0); MEAN PLATELET VOLUME 8.5 fL (7.4-11.0); MONOCYTES # (AUTO) 0.3 x10^3/uL (0.3-0.8); MONOCYTES % (AUTO) 6.7 % (0.0-13.0); NEUTROPHILS # (AUTO) 2.5 x10^3/uL (2.2-4.8); NEUTROPHILS % (AUTO) 51.9 % (42.0-75.0); PLATELET COUNT 257 X10^3/uL (150.0-450.0); RED BLOOD COUNT 3.72 X10^6/uL (4.7-6.0); RED CELL DISTRIBUTION WIDTH 12.4 % (11.6-16.5); WHITE BLOOD COUNT 4.9 X10^3/uL (3.6-10.0)
[2019-04-10 05:09] LABS: VANCOMYCIN,TROUGH 6.5 ug/mL (15-20)
[2019-04-10 05:17] LABS: ALANINE AMINOTRANSFERASE 31 Units/L (12-78); ALBUMIN 2.5 g/dL (3.4-5.0); ALKALINE PHOSPHATASE 124 Units/L (46-116); ASPARTATE AMINO TRANSFERASE 29 Units/L (15-37); BLOOD UREA NITROGEN 7 mg/dL (7-18); CALCIUM 7.9 mg/dL (8.5-10.1); CARBON DIOXIDE 27.1 mmol/L (21-32); CHLORIDE 105 mmol/L (98-107); COR CA(FOR HYPOALB) 9.1 mg/dL (8.5-10.1); COR NA(FOR HYPERGLY) 141 mmol/L (136-145); CREATININE 0.57 mg/dL (0.70-1.30); MAGNESIUM 1.6 mg/dL (1.7-2.9); SODIUM 140 mmol/L (136-145); TOTAL PROTEIN 6.1 g/dL (6.4-8.2); eGFR NON BLACK RACES > 60 (>60)
[2019-04-10] MEDS: VANCOMYCIN HCL 1 GM VIAL 1 G in NS 250 ML IV 250 ML IV SCH ×2 (05:25→14:00)
[2019-04-10] MEDS: ZOSYN VIAL 3.375 GRAMS 3.375 G in NS 100 ML IV + SPIKE MINIBAG* 100 ML IV SCH ×2 (05:25→15:00)
[2019-04-10] MEDS: NS 1000 ML 1,000 ML IV SCH (06:02)
[2019-04-10] MEDS: K-DUR TAB 20 MEQ PO PRN (06:41)
[2019-04-10] MEDS: PERIDEX or PERIOGARD MT SCH (08:30)
[2019-04-10] MEDS: DIFLUCAN PO SCH (08:30)
[2019-04-10] MEDS: HumuLIN R SC PRN ×2 (12:23→17:15)
--- NOTE | 2019-04-10 13:30 | PCM.PROG ---
Progress Note - Progress Note for Day of Date of Exam: 04/09/19 - Subjective Subjective: 23 WM ER ADMISSION LAST PM WITH RIGHT FACIAL CELLULITIS AND large abscess/phlegmon within the right submandibular soft tissues CONFIRMED ON CT. PT HAS BEEN ON IV ZOSYN SINCE ADMISSION, PREVIOUSLY FAILED ON ORAL CLINDAMYCIN AND KEFLEX PO ON OUTPT BASIS. PT WBC 6.4 THIS AM, PT WAS FEBRILE DURING THE NIGHT. S/P I&D PER DR APARICIO WITH PACKING TO WOUND, PT REPORTS PAIN IS MUCH IMPROVED. PT WOUND CUTLURE PENDING. - Past Medical Family Social History Past Med/Fam/Surg Hx: No changes since H&P Allergies: Allergies lorazepam [From Ativan] Allergy (Verified 04/06/19 17:33) - Review of Systems ROS: No change since H&P - Vital Signs and I&O's Vital Signs: Temperature 98.2 F Pulse Rate [Right Brachial] 78 Pulse Rate 81 Respiratory Rate 20 Blood Pressure [Right Arm] 133/83 Blood Pressure [Left Arm] 126/84 Blood Pressure 120/63 O2 Sat by Pulse Oximetry 100 Intake and Output: Intake & Output 04/08/19 04/09/19 04/10/19 04/11/19 11:59 11:59 11:59 11:59 Intake Total 1240 / 1240 2116 / 7 5110 / 5110 Balance 1240 / 1240 2116 / 2116 5110 / 5110 - Physical Exam Oriented: Normal Eyes: Normal Ear: Normal Nose: Normal Throat: Normal Respiratory: Normal Cardiovascular: Normal : Normal Auscultation: Bowel Sounds: Normal Tenderness: Normal Skin: Red, Tender, Hot, Wound (Large necrotic abscess Rt submandibular area [id number] with cellulitis extending to the neck and face, S/P I&D packing and dressing with moderate purulent dc, significan improved localized redness and tenderness) Musculoskeletal: Normal Psychiatric: Anxiety Affect: Anxious Speech Pattern: Clear, Appropriate - Laboratory and Diagnostics Result Diagrams: 04/10/19 04:36 04/10/19 04:36 Labs: 04/08/19 12:00 Drainage Gram Stain - Final 04/08/19 12:00 Drainage Wound Culture - Preliminary 04/07/19 08:30 Mouth Gram Stain - Final 04/07/19 08:30 Mouth Wound Culture - Final 04/07/19 08:50 Blood Blood Culture - Preliminary 04/07/19 08:42 Blood Blood Culture - Preliminary Laboratory WBC 4.9 X10^3/uL (3.6-10.0) 04/10/19 04:36 RBC 3.72 X10^6/uL (4.7-6.0) L 04/10/19 04:36 Hgb 12.1 g/dL (13.5-18.0) L 04/10/19 04:36 Hct 34.3 % (42.0-54.0) L 04/10/19 04:36 MCV 92.4 fL (80.0-100.0) 04/10/19 04:36 MCH 32.7 pg (27.0-34.0) 04/10/19 04:36 MCHC 35.3 g/dL (33.0-35.0) H 04/10/19 04:36 RDW 12.4 % (11.6-16.5) 04/10/19 04:36 Plt Count 257 X10^3/uL (150.0-450.0) 04/10/19 04:36 MPV 8.5 fL (7.4-11.0) 04/10/19 04:36 Neut % (Auto) 51.9 % (42.0-75.0) 04/10/19 04:36 Lymph % (Auto) 37.3 % (21.0-51.0) 04/10/19 04:36 [place] % (Auto) 6.7 % (0.0-13.0) 04/10/19 04:36 Eos % (Auto) 3.7 % (0.9-2.9) H 04/10/19 04:36 Baso % (Auto) 0.4 % (0.2-1.0) 04/10/19 04:36 Neut # (Auto) 2.5 x10^3/uL (2.2-4.8) 04/10/19 04:36 Lymph # (Auto) 1.8 X10^3/uL (1.3-2.9) 04/10/19 04:36 [place] # (Auto) 0.3 x10^3/uL (0.3-0.8) 04/10/19 04:36 Eos # (Auto) 0.2 x10^3/uL (0.0-0.2) 04/10/19 04:36 Baso # (Auto) 0.0 X10^3/uL (0.0-0.1) 04/10/19 04:36 Absolute Nucleated RBC 0.0 /100WBC 04/10/19 04:36 ESR 29 MM/HOUR (0-15) H 04/07/19 15:00 Sample Site Rb 04/07/19 09:20 ABG pH 7.430 (7.35-7.45) 04/07/19 09:20 ABG pCO2 38.0 mmHg (35.0-45.0) 04/07/19 09:20 ABG pO2 73.0 mmHg (80.0-100.0) L 04/07/19 09:20 ABG HCO3 25.2 mmol/L (22-26) 04/07/19 09:20 ABG O2 Saturation 95.0 % (90-100) 04/07/19 09:20 ABG Base Excess 1.0 mmol/L (-2.0-2.0) 04/07/19 09:20 Clint Test Na 04/07/19 09:20 A-a Gradient 29.0 mmHg 04/07/19 09:20 FiO2 21.0 04/07/19 09:20 Blood Gas Comments Pt trista well. cdn 04/07/19 09:20 Sodium 140 mmol/L (136-145) 04/10/19 04:36 Corrected Sodium 141 mmol/L (136-145) 04/10/19 04:36 Potassium 3.3 mmol/L (3.5-5.1) L 04/10/19 04:36 Chloride 105 mmol/L (98-107) 04/10/19 04:36 Carbon Dioxide 27.1 mmol/L (21-32) 04/10/19 04:36 BUN 7 mg/dL (7-18) 04/10/19 04:36 Creatinine 0.57 mg/dL (0.70-1.30) L 04/10/19 04:36 Est GFR (MDRD) Af Amer > 60 (>60) 04/10/19 04:36 Est GFR (MDRD) Non-Af > 60 (>60) 04/10/19 04:36 Glucose 154 mg/dL (65-99) H 04/10/19 04:36 Hemoglobin A1c 12.4 % 04/08/19 04:06 Lactic Acid 2.5 mmol/L (0.4-2.0) H 04/07/19 18:24 Calcium 7.9 mg/dL (8.5-10.1) L 04/10/19 04:36 Corrected Calcium 9.1 mg/dL (8.5-10.1) 04/10/19 04:36 Magnesium 1.6 mg/dL (1.7-2.9) L 04/10/19 04:36 Total Bilirubin 0.20 mg/dL (0.2-1.0) 04/10/19 04:36 AST 29 Units/L (15-37) 04/10/19 04:36 ALT 31 Units/L (12-78) 04/10/19 04:36 Alkaline Phosphatase 124 Units/L (46-116) H 04/10/19 04:36 C-Reactive Protein 35.50 mg/L (0-3.0) H 04/07/19 15:00 Total Protein 6.1 g/dL (6.4-8.2) L 04/10/19 04:36 Albumin 2.5 g/dL (3.4-5.0) L 04/10/19 04:36 Globulin 3.6 g/dL (2.5-4.5) 04/10/19 04:36 Albumin/Globulin Ratio 0.7 Ratio (1.1-2.1) L 04/10/19 04:36 Vancomycin Trough 6.5 ug/mL (15-20) L 04/10/19 04:36 Tissue Pathology To follow 04/08/19 12:03 - Plan (1) Facial cellulitis Status: Acute Plan: IV ZOSYN, S/O I&D. FEVER AND PAIN CONTROL. IV HYDRATION, SSI THERAPY. BLOOD SUGAR CONTROL, ADMISSION LABS INCLUDING BLOOD CULTURES. ORAL D/C CULTURE, CRP AND SED RATE. MAGNESIUM REPLACEMENT (2) Abscess of mandible Status: Acute (3) Dental cavities Status: Acute (4) Diabetes 1.5, managed as type 1 Status: Acute (5) Hypomagnesemia Status: Acute
--- NOTE | 2019-04-10 13:31 | PCM.PROG ---
Progress Note - Progress Note for Day of Date of Exam: 04/10/19 - Subjective Subjective: 23 WM ER ADMISSION LAST PM WITH RIGHT FACIAL CELLULITIS AND large abscess/phlegmon within the right submandibular soft tissues CONFIRMED ON CT. PT HAS BEEN ON IV ZOSYN SINCE ADMISSION, PREVIOUSLY FAILED ON ORAL CLINDAMYCIN AND KEFLEX PO ON OUTPT BASIS. PT WBC 4.9 THIS AM, PT WAS AFEBRILE DURING THE NIGHT. S/P I&D PER DR APARICIO WITH PACKING TO WOUND, PT REPORTS PAIN IS MUCH IMPROVED. PT WOUND CUTLURE +GRAM NEG RODS - Past Medical Family Social History Past Med/Fam/Surg Hx: No changes since H&P Allergies: Allergies lorazepam [From Ativan] Allergy (Verified 04/06/19 17:33) - Review of Systems ROS: No change since H&P - Vital Signs and I&O's Vital Signs: Temperature 98.2 F Pulse Rate [Right Brachial] 78 Pulse Rate 81 Respiratory Rate 20 Blood Pressure [Right Arm] 133/83 Blood Pressure [Left Arm] 126/84 Blood Pressure 120/63 O2 Sat by Pulse Oximetry 100 Intake and Output: Intake & Output 04/08/19 04/09/19 04/10/19 04/11/19 11:59 11:59 11:59 11:59 Intake Total 1240 / 1240 2116 / 2116 5110 / 5110 Balance 1240 / 1240 2116 / 2116 5110 / 5110 - Physical Exam Oriented: Normal Eyes: Normal Ear: Normal Nose: Normal Throat: Normal Respiratory: Normal Cardiovascular: Normal : Normal Auscultation: Bowel Sounds: Normal Tenderness: Normal Skin: Red, Tender, Hot, Wound (Large necrotic abscess Rt submandibular area [id number] with cellulitis extending to the neck and face, S/P I&D packing and dressing with moderate purulent dc, significan improved localized redness and tenderness) Musculoskeletal: Normal Psychiatric: Anxiety Affect: Anxious Speech Pattern: Clear, Appropriate - Laboratory and Diagnostics Result Diagrams: 04/10/19 04:36 04/10/19 04:36 Labs: 04/08/19 12:00 Drainage Gram Stain - Final 04/08/19 12:00 Drainage Wound Culture - Preliminary 04/07/19 08:30 Mouth Gram Stain - Final 04/07/19 08:30 Mouth Wound Culture - Final 04/07/19 08:50 Blood Blood Culture - Preliminary 04/07/19 08:42 Blood Blood Culture - Preliminary Laboratory WBC 4.9 X10^3/uL (3.6-10.0) 04/10/19 04:36 RBC 3.72 X10^6/uL (4.7-6.0) L 04/10/19 04:36 Hgb 12.1 g/dL (13.5-18.0) L 04/10/19 04:36 Hct 34.3 % (42.0-54.0) L 04/10/19 04:36 MCV 92.4 fL (80.0-100.0) 04/10/19 04:36 MCH 32.7 pg (27.0-34.0) 04/10/19 04:36 MCHC 35.3 g/dL (33.0-35.0) H 04/10/19 04:36 RDW 12.4 % (11.6-16.5) 04/10/19 04:36 Plt Count 257 X10^3/uL (150.0-450.0) 04/10/19 04:36 MPV 8.5 fL (7.4-11.0) 04/10/19 04:36 Neut % (Auto) 51.9 % (42.0-75.0) 04/10/19 04:36 Lymph % (Auto) 37.3 % (21.0-51.0) 04/10/19 04:36 [place] % (Auto) 6.7 % (0.0-13.0) 04/10/19 04:36 Eos % (Auto) 3.7 % (0.9-2.9) H 04/10/19 04:36 Baso % (Auto) 0.4 % (0.2-1.0) 04/10/19 04:36 Neut # (Auto) 2.5 x10^3/uL (2.2-4.8) 04/10/19 04:36 Lymph # (Auto) 1.8 X10^3/uL (1.3-2.9) 04/10/19 04:36 [place] # (Auto) 0.3 x10^3/uL (0.3-0.8) 04/10/19 04:36 Eos # (Auto) 0.2 x10^3/uL (0.0-0.2) 04/10/19 04:36 Baso # (Auto) 0.0 X10^3/uL (0.0-0.1) 04/10/19 04:36 Absolute Nucleated RBC 0.0 /100WBC 04/10/19 04:36 ESR 29 MM/HOUR (0-15) H 04/07/19 15:00 Sample Site Rb 04/07/19 09:20 ABG pH 7.430 (7.35-7.45) 04/07/19 09:20 ABG pCO2 38.0 mmHg (35.0-45.0) 04/07/19 09:20 ABG pO2 73.0 mmHg (80.0-100.0) L 04/07/19 09:20 ABG HCO3 25.2 mmol/L (22-26) 04/07/19 09:20 ABG O2 Saturation 95.0 % (90-100) 04/07/19 09:20 ABG Base Excess 1.0 mmol/L (-2.0-2.0) 04/07/19 09:20 Clint Test Na 04/07/19 09:20 A-a Gradient 29.0 mmHg 04/07/19 09:20 FiO2 21.0 04/07/19 09:20 Blood Gas Comments Pt trista well. cdn 04/07/19 09:20 Sodium 140 mmol/L (136-145) 04/10/19 04:36 Corrected Sodium 141 mmol/L (136-145) 04/10/19 04:36 Potassium 3.3 mmol/L (3.5-5.1) L 04/10/19 04:36 Chloride 105 mmol/L (98-107) 04/10/19 04:36 Carbon Dioxide 27.1 mmol/L (21-32) 04/10/19 04:36 BUN 7 mg/dL (7-18) 04/10/19 04:36 Creatinine 0.57 mg/dL (0.70-1.30) L 04/10/19 04:36 Est GFR (MDRD) Af Amer > 60 (>60) 04/10/19 04:36 Est GFR (MDRD) Non-Af > 60 (>60) 04/10/19 04:36 Glucose 154 mg/dL (65-99) H 04/10/19 04:36 Hemoglobin A1c 12.4 % 04/08/19 04:06 Lactic Acid 2.5 mmol/L (0.4-2.0) H 04/07/19 18:24 Calcium 7.9 mg/dL (8.5-10.1) L 04/10/19 04:36 Corrected Calcium 9.1 mg/dL (8.5-10.1) 04/10/19 04:36 Magnesium 1.6 mg/dL (1.7-2.9) L 04/10/19 04:36 Total Bilirubin 0.20 mg/dL (0.2-1.0) 04/10/19 04:36 AST 29 Units/L (15-37) 04/10/19 04:36 ALT 31 Units/L (12-78) 04/10/19 04:36 Alkaline Phosphatase 124 Units/L (46-116) H 04/10/19 04:36 C-Reactive Protein 35.50 mg/L (0-3.0) H 04/07/19 15:00 Total Protein 6.1 g/dL (6.4-8.2) L 04/10/19 04:36 Albumin 2.5 g/dL (3.4-5.0) L 04/10/19 04:36 Globulin 3.6 g/dL (2.5-4.5) 04/10/19 04:36 Albumin/Globulin Ratio 0.7 Ratio (1.1-2.1) L 04/10/19 04:36 Vancomycin Trough 6.5 ug/mL (15-20) L 04/10/19 04:36 Tissue Pathology To follow 04/08/19 12:03 - Plan (1) Facial cellulitis Status: Acute Plan: IV ZOSYN, S/O I&D. FEVER AND PAIN CONTROL. IV HYDRATION, SSI THERAPY. BLOOD SUGAR CONTROL, ADMISSION LABS INCLUDING BLOOD CULTURES. ORAL D/C CULTURE, CRP AND SED RATE. MAGNESIUM REPLACEMENT (2) Abscess of mandible Status: Acute (3) Dental cavities Status: Acute (4) Diabetes 1.5, managed as type 1 Status: Acute (5) Hypomagnesemia Status: Acute
[2019-04-10 16:14] VITALS: BP 123/80
[2019-04-10] MEDS: PERCOCET TAB 5/325 MG PO PRN (17:15)
== END 2019-04-10 18:30 | disposition home or self-care (01) | DRG 139 ==
LOC: ER 17:25 → MED/SURG 19:58
PROVIDERS: ADMIT Internal Medicine; ATTEND Internal Medicine
DX: K12.2 Cellulitis and abscess of mouth; R79.82 Elevated C-reactive protein (CRP); E10.65 Type 1 diabetes mellitus with hyperglycemia; E83.42 Hypomagnesemia; K02.9 Dental caries, unspecified; L03.211 Cellulitis of face
CPT/HCPCS: 36415; 36600; 70486; 71010; 71045; 80053; 80202; 82565; 82803; 83036; 83605; 83735; 84132; 85025; 85652; 86140; 87040; 87070; 87075; 87077; 87186; 87205; 96365; 96372; 96374; 99284; A4222; J3490; J1170; J1815; J1885; J2250; J2270; J2405; J2543; J2704; J3010; J3370; J3475; J7030; J7050; J7060

== ENCOUNTER 2021-03-08 02:03 | Inpatient (IN) ==
[2021-03-08] MEDS ORDERED: NS 1000 ML 1,000 ML IV ONE ×2 (03:01→05:27)
--- NOTE | 2021-03-08 03:09 | DR.GENAD ---
HPI Time Seen Time Seen by Provider: 03/08/21 02:11 PCP Primary Care Physician: DEANDRA Complaint/Symptoms Chief Complaint Doctors Comments: 25 y/o male presents with urinary difficulties over the past 3 days. Has dribbling urine at times. Has a weak stream. Denies fever or chills. Having lower abdominal pain, pressure like sensation. Pain is constant, worsening, does not radiate. Nothing makes it better, it is worse with palpation and ambulation. H/o IDDM, has a h/o difficult to control glucose levels. Denies being sexually active. Chief Complaint:: PT STATES" I CAN'T PEE MY PROSTATE IS ENLARGED AND I HAVE NOT PEED IN 3 DAYS" COVID-19 Coronavirus risk:travel/contact w/high risk person: No Has patient experienced Coronavirus symptoms: No Nurses notes reviewed Nurses Notes Review: Yes Source History Provided: Patient Mode of Arrival Mode of Arrival: Ambulatory Timing Onset of Chief Complaint: 03/05/21 Came on: Gradually Duration Duration: Constant How lon Duration: Days Severity Severity: Severe PMH PMH Past Medical History: Yes Past Medical History: Diabetes Past Surgical History: No Surgical History: No History Family History History of Family Medical Conditions: Yes Family Medical History: Diabetes Mellitus, Coronary Artery Disease and Hypertension Social History Does patient currently use any type of tobacco product: No Have you used tobacco products in the last 12 months: No Type of Tobacco Use: None Does any household member use tobacco: No Alcohol Use: None Do you use any recreational Drugs:: No Lives With: Family Lives Where: Home Infectious screening In the last 2 months have you had wt loss of >10#?: NO Have you had fever, night sweats or hemotysis?: No Have you traveled outside the country in the last 6 months?: No Isolation: Standard ROS Review of Systems Constitutional: Weakness; negative Chills and Fever Eyes: No Symptoms Reported ENTM: No Symptoms Reported Respiratoy: No Symptoms Reported Cardiovascular: No Symptoms Reported Gastrointestinal/Abdominal: Abdominal Pain; negative Diarrhea, Nausea and Vomiting Genitourinary: Dysuria and Other (decreased urine output) Neurological: No Symptoms Reported Musculoskeletal: No Symptoms Reported Integumentary: No Symptoms Reported Hematologic/Lymphatic: No Symptoms Reported Endocrine: No Symptoms Reported Psychiatric: No Symptoms Reported All Other Systems: Reviewed and Negative PE Vital Signs Vitals: Temperature 98.2 F Pulse Rate 120 Respiratory Rate 20 Blood Pressure [Right Arm] 123/80 Blood Pressure 127/86 O2 Sat by Pulse Oximetry 99 General Limitations: No Limitations General Appearance: Alert, Anxious and In Distress Head Head Exam: Normal Inspection Eyes Eye exam: Normal Appearance ENT ENT Exam: Normal Exam Neck Neck Exam: Normal Inspection and Full ROM Chest Chest Inspection: Normal Inspection Respiratory Respiratory Exam: Normal Lung Sounds Bilat; negative Accessory Muscle Use Respiratory Exam: Bilateral: Clear to Auscultation Cardiovascular Cardiovascular Exam: Regular Rate, Normal Rhythm, Tachycardia and Normal Heart Sounds Abdominal Exam Abdominal Exam: Tenderness (lower abdomen, with a distended bladder. Rectal - + tender, enlarged bladder. ) Extremities Extremities Exam: Normal Inspection and Full ROM Back Back Exam: Normal Inspection Neurologic Neurological Exam: Alert, Oriented X3 and CN II-XII Intact; negative Motor Sensory Deficit Psychiatric Psychiatric Exam: Anxious Skin Skin Exam: Warm and Dry MDM Differential Diagnosis Differential Diagnosis: Urinary retention , Prostatitis, poor control DM, STD, UTI COURSE Treatment Treatment: 25 y/o male presents with worsening urinary retention over the past 3 days. + distended bladder. Rectal exam shows distended bladder, no boggy pro state. Parada placed - 1200 mls out, was clamped. W/u initiated. Glucose 722. Given IV regular insulin, 12 units. Given IV rocephin to cover the urine. Reevaluation 1st: Improved (repeat glucose 526. WBC 22,800. Co2 18.3 + large amount serum acetone. Will obtain an ABG. ) 2nd: Improved (pH normal, not acidotic.) Consultation Consultation Comments: Discussed with his PCP, Dr. Kramer, accepts admission. ROR Labs Reviewed Result Diagrams: 03/08/21 03:18 03/08/21 05:11 Laboratory: WBC 22.8 X10^3/uL (3.6-10.0) H 03/08/21 03:18 RBC 4.40 X10^6/uL (4.7-6.0) L 03/08/21 03:18 Hgb 14.2 g/dL (13.5-18.0) 03/08/21 03:18 Hct 42.4 % (42.0-54.0) 03/08/21 03:18 MCV 96.3 fL (80.0-100.0) 03/08/21 03:18 MCH 32.4 pg (27.0-34.0) 03/08/21 03:18 MCHC 33.6 g/dL (33.0-35.0) 03/08/21 03:18 RDW 13.1 % (11.6-16.5) 03/08/21 03:18 Plt Count 336 X10^3/uL (150.0-450.0) 03/08/21 03:18 Plt Count Comment Adequate (ADEQUATE) 03/08/21 03:18 MPV 8.8 fL (7.4-11.0) 03/08/21 03:18 Neut % (Auto) 91.3 % (42.0-75.0) H 03/08/21 03:18 Lymph % (Auto) 3.8 % (21.0-51.0) L 03/08/21 03:18 [place] % (Auto) 4.5 % (0.0-13.0) 03/08/21 03:18 Eos % (Auto) 0.1 % (0.9-2.9) L 03/08/21 03:18 Baso % (Auto) 0.3 % (0.2-1.0) 03/08/21 03:18 Neut # (Auto) 20.8 x10^3/uL (2.2-4.8) H 03/08/21 03:18 Lymph # (Auto) 0.9 X10^3/uL (1.3-2.9) L 03/08/21 03:18 [place] # (Auto) 1.0 x10^3/uL (0.3-0.8) H 03/08/21 03:18 Eos # (Auto) 0.0 x10^3/uL (0.0-0.2) 03/08/21 03:18 Baso # (Auto) 0.1 X10^3/uL (0.0-0.1) 03/08/21 03:18 Absolute Nucleated RBC 0.0 /100WBC 03/08/21 03:18 Total Counted 100 03/08/21 03:18 Neutrophils % (Manual) 96 % (39-76) H 03/08/21 03:18 Lymphocytes % (Manual) 4 % (13-43) L 03/08/21 03:18 Plt Morphology Comment Normal (NORMAL) 03/08/21 03:18 RBC Morphology Normal (NORMAL) 03/08/21 03:18 Sample Site Lr 03/08/21 05:45 ABG pH 7.420 (7.35-7.45) 03/08/21 05:45 ABG pCO2 36.0 mmHg (35.0-45.0) 03/08/21 05:45 ABG pO2 90.0 mmHg (80.0-100.0) 03/08/21 05:45 ABG HCO3 23.4 mmol/L (22-26) 03/08/21 05:45 ABG O2 Saturation 97.0 % (90-100) 03/08/21 05:45 ABG Base Excess -0.7 mmol/L (-2.0-2.0) 03/08/21 05:45 Clint Test Pos 03/08/21 05:45 A-a Gradient 15.0 mmHg 03/08/21 05:45 FiO2 21 03/08/21 05:45 Blood Gas Comments Emmie well ae 03/08/21 05:45 Sodium 127 mmol/L (136-145) L 03/08/21 03:18 Corrected Sodium 142 mmol/L (136-145) 03/08/21 03:18 Potassium 4.4 mmol/L (3.5-5.1) 03/08/21 03:18 Chloride 90 mmol/L (98-107) L 03/08/21 03:18 Carbon Dioxide 18.3 mmol/L (21-32) L 03/08/21 03:18 BUN 8 mg/dL (7-18) 03/08/21 03:18 Creatinine 1.01 mg/dL (0.70-1.30) 03/08/21 03:18 Est GFR (MDRD) Af Amer > 60 (>60) 03/08/21 03:18 Est GFR (MDRD) Non-Af > 60 (>60) 03/08/21 03:18 Glucose 504 mg/dL (65-99) H* 03/08/21 05:11 Calcium 9.2 mg/dL (8.5-10.1) 03/08/21 03:18 Corrected Calcium TNP 03/08/21 03:18 Total Bilirubin 0.60 mg/dL (0.2-1.0) 03/08/21 03:18 AST 12 Units/L (15-37) L 03/08/21 03:18 ALT 44 Units/L (12-78) 03/08/21 03:18 Alkaline Phosphatase 203 Units/L (46-116) H 03/08/21 03:18 Total Protein 7.7 g/dL (6.4-8.2) 03/08/21 03:18 Albumin 3.5 g/dL (3.4-5.0) 03/08/21 03:18 Globulin 4.2 g/dL (2.5-4.5) 03/08/21 03:18 Albumin/Globulin Ratio 0.8 Ratio (1.1-2.1) L 03/08/21 03:18 Lipase 48 Units/L (73-393) L 03/08/21 03:18 Specimen Type Catherized urine 03/08/21 03:18 Urine Color Straw (YELLOW) 03/08/21 03:18 Urine Appearance Clear (CLEAR) 03/08/21 03:18 Urine pH 6.0 (5.0 - 8.0) 03/08/21 03:18 Ur Specific [place] 1.010 (1.000-1.030) 03/08/21 03:18 Urine Protein Negative (NEGATIVE) 03/08/21 03:18 Urine Glucose (UA) 4+ (NEGATIVE) 03/08/21 03:18 Urine Ketones 3+ (NEGATIVE) 03/08/21 03:18 Urine Occult Blood 3+ (NEGATIVE) 03/08/21 03:18 Urine Nitrite Negative (NEGATIVE) 03/08/21 03:18 Urine Bilirubin Negative (NEGATIVE) 03/08/21 03:18 Urine Urobilinogen Normal (NORMAL) 03/08/21 03:18 Ur Leukocyte Esterase 3+ (NEGATIVE) 03/08/21 03:18 Urine RBC None seen /HPF (0-3) 03/08/21 03:18 Urine WBC 10-20 /HPF (0-5) A 03/08/21 03:18 Ur Squamous Epith Cells Negative /HPF (NEGATIVE) 03/08/21 03:18 Urine Bacteria 1+ /HPF (NEGATIVE) 03/08/21 03:18 Ur Culture Indicated? Yes/culture set up 03/08/21 03:18 Urine Opiates Screen Positive (NEG=<300) 03/08/21 03:18 Urine Methadone Screen Negative (NEG=<300) 03/08/21 03:18 Ur Barbiturates Screen Negative (NEG=<200) 03/08/21 03:18 Ur Phencyclidine Scrn Negative (NEG=<25) 03/08/21 03:18 Ur Amphetamines Screen Negative (NEG=<1000) 03/08/21 03:18 U Benzodiazepines Scrn Negative (NEG=<200) 03/08/21 03:18 Urine Cocaine Screen Negative (NEG=<300) 03/08/21 03:18 U Marijuana (THC) Screen Positive (NEG=<50) A 03/08/21 03:18 Acetone, Semi-Quant Large (NEGATIVE) H 03/08/21 03:18 Ur C. trach DNA (PCR) Not detected (NOT DETECT) 03/08/21 03:18 U N.gonorrhoeae DNA PCR Not detected (NOT DETECT) 03/08/21 03:18 SARS CoV-2 RNA Rapid LILLI Negative (NEGATIVE) 03/08/21 07:15 Other Results Comments: WBC 22K. CMP shows glucose to be 722. U/A with 3+ ketones, 4+ glucose, 3+ blood. Has 10-20 WBCs, urine culture sent. Opioid Opioid Risk Tool Age (Roberto box if 16-45): Yes History of Preadolescent Sexual Abuse: No Total: 1 Total Score Risk Category: Low Risk Copyright: [place] SK[employer] predicting aberrant behaviors Diagnosis Discharge Problem: Diabetic ketoacidosis, Acute urinary retention
[2021-03-08 03:28] LABS: BASOPHILS # (AUTO) 0.1 X10^3/uL (0.0-0.1); BASOPHILS % (AUTO) 0.3 % (0.2-1.0); EOSINOPHILS % (AUTO) 0.1 % (0.9-2.9); HEMATOCRIT 42.4 % (42.0-54.0); HEMOGLOBIN 14.2 g/dL (13.5-18.0); LYMPHOCYTES # (AUTO) 0.9 X10^3/uL (1.3-2.9); LYMPHOCYTES % (AUTO) 3.8 % (21.0-51.0); MEAN CORPUSCULAR HEMOGLOBIN 32.4 pg (27.0-34.0); MEAN CORPUSCULAR HGB CONC 33.6 g/dL (33.0-35.0); MEAN CORPUSCULAR VOLUME 96.3 fL (80.0-100.0); MEAN PLATELET VOLUME 8.8 fL (7.4-11.0); MONOCYTES % (AUTO) 4.5 % (0.0-13.0); NEUTROPHILS # (AUTO) 20.8 x10^3/uL (2.2-4.8); NEUTROPHILS % (AUTO) 91.3 % (42.0-75.0); PLATELET COUNT 336 X10^3/uL (150.0-450.0); RED CELL DISTRIBUTION WIDTH 13.1 % (11.6-16.5); WHITE BLOOD COUNT 22.8 X10^3/uL (3.6-10.0)
[2021-03-08 03:30] LABS: BILIRUBIN,URINE NEGATIVE (NEGATIVE); BLOOD/HEMOGLOBIN,URINE 3+ (NEGATIVE); GLUCOSE, URINE 4+ (NEGATIVE); KETONES,URINE 3+ (NEGATIVE); LEUKOCYTE ESTERASE ,URINE 3+ (NEGATIVE); NITRITES,URINE NEGATIVE (NEGATIVE); PROTEIN,URINE NEGATIVE (NEGATIVE); UROBILINOGEN,URINE NORMAL (NORMAL)
[2021-03-08 03:40] LABS: ALANINE AMINOTRANSFERASE 44 Units/L (12-78); ALBUMIN 3.5 g/dL (3.4-5.0); ALKALINE PHOSPHATASE 203 Units/L (46-116); APPEARANCE,URINE CLEAR (CLEAR); ASPARTATE AMINO TRANSFERASE 12 Units/L (15-37); BACTERIA,URINE 1+ /HPF (NEGATIVE); BLOOD UREA NITROGEN 8 mg/dL (7-18); CALCIUM 9.2 mg/dL (8.5-10.1); CARBON DIOXIDE 18.3 mmol/L (21-32); CHLORIDE 90 mmol/L (98-107); COLOR,URINE STRAW (YELLOW); CREATININE 1.01 mg/dL (0.70-1.30); LIPASE 48 Units/L (73-393); RBC,URINE NONE SEEN /HPF (0-3); SODIUM 127 mmol/L (136-145); SQUAMOUS EPITHELIAL CELL,UR NEGATIVE /HPF (NEGATIVE); TOTAL PROTEIN 7.7 g/dL (6.4-8.2); eGFR NON BLACK RACES > 60 (>60)
[2021-03-08 03:41] LABS: COR NA(FOR HYPERGLY) 142 mmol/L (136-145)
[2021-03-08] MEDS ORDERED: NS 1000 ML 1,000 ML ONE ×3 (03:47→09:46)
[2021-03-08] MEDS ORDERED: HumuLIN R IV ONE (03:49)
[2021-03-08] MEDS ORDERED: ROCEPHIN 1 GRAM IV PREMIX 1 G/50 ML IV.SOLN. IV ONE ×2 (03:59→09:46)
[2021-03-08] MEDS ORDERED: HumuLIN R ONE (04:00)
[2021-03-08] MEDS: ROCEPHIN 1 GRAM IV PREMIX 1 G/50 ML IV.SOLN. IV ONE ×2 (04:06→10:02)
[2021-03-08 04:30] LABS: PLATELET MORPHOLOGY COMMENT NORMAL (NORMAL)
[2021-03-08 06:00] LABS: ABG ALLEN TEST POS; ABG BASE EXCESS -0.7 mmol/L (-2.0-2.0); ABG HCO3 23.4 mmol/L (22-26)
[2021-03-08] MEDS ORDERED: MYXREDLIN 100 UNIT/100 ML BAG 100 UNIT/100 ML PLAST..BAG IV PRN (09:25)
[2021-03-08] MEDS ORDERED: MYXREDLIN 100 UNIT/100 ML BAG 100 UNIT/100 ML PLAST..BAG IV ONE (09:47)
[2021-03-08] MEDS: ROCEPHIN VIAL 1 GRAM 1 G in NS 100 ML IV + SPIKE MINIBAG* 100 ML IV SCH (10:01)
[2021-03-08] MEDS: NS 1000 ML 1,000 ML IV SCH ×2 (10:02→23:10)
--- NOTE | 2021-03-08 12:06 | RAD ---
HISTORYABD PAIN, CONSTIPATION [id number]SEvaluation of the abdomen demonstrates a normal bowel gas pattern. Th ere is a normal amount of stool in the colon. No pathological soft tissue mass or calcification can b e observed. The bony structures are grossly intact.IMPRESSIONNo evidence for acute abdominal patholo gy identified.Electronically signed by: JEANETTE VILLAVICENCIO (Mar 08, 2021 12:04:09)
--- NOTE | 2021-03-08 13:36 | DR.H&P ---
H&P - History & Physical for Day of: H&P Date: 03/08/21 - Chief Complaint Chief Complaint: BLOOD SUGAR HIGH, LEGS SWELLING, NO URINE - History of Present Illness History of Present Illness: 25 y/o male presents with urinary difficulties over the past 3 days. Has dribbling urine at times. Has a weak stream. Denies fever or chills. Having lower abdominal pain, pressure like sensation. Pain is constant, worsening, does not radiate. Nothing makes it better, it is worse with palpation and ambulation. H/o IDDM, has a h/o difficult to control glucose levels. Denies being sexually active. Pt reports elevated blood sugar and lower leg swelling. Pt was in DKA confirmed on ER labs. Pt admitted for treatment of acute illness. - Past Medical History Past Medical History: Diabetes - Past Surgical History Surgical History: No History - Family History Family Medical History: Diabetes Mellitus, Coronary Artery Disease, Hypertension - Social History Does patient currently use any type of tobacco product: No Have you used tobacco products in the last 12 months: No Type of Tobacco Use: None Does any household member use tobacco: No Alcohol Use: None Drug Use: Marijuana - Medications Home Medications: lorazepam [From Ativan] Allergy (Verified 04/06/19 17:33) - Review of Systems Constitutional: Weakness Eyes: No Symptoms Reported, Vision Change Respiratory: No Symptoms Reported Cardiovascular: Edema Gastrointestinal: Nausea Genitourinary: Dysuria, Retention Musculoskeletal: No Symptoms Reported Skin: No Symptoms Reported Neurological: Weakness - Physical Exam Vital Signs: Temperature 98.2 F Pulse Rate 120 Respiratory Rate 20 Blood Pressure [Right Arm] 123/80 Blood Pressure 127/86 O2 Sat by Pulse Oximetry 99 Oriented: Normal Eyes: Normal Ear: Normal Nose: Normal Throat: Dry Respiratory: RLL Diminished, LLL Diminished Cardiovascular: Normal, Edema : Normal Auscultation: Bowel Sounds: Normal Palpation: Normal Tenderness: Epigastric, Mild Skin: Decreased Turgur Musculoskeletal: Normal Psychiatric: Normal Mood Description: Calm Speech Pattern: Clear, Appropriate - Assessment/Plan (1) Diabetic ketoacidosis Status: Acute Plan: ADMIT, INSULIN DRIP PER PROTOCOL WITH HRLY FSBS. CARDIAC MONITORING, IV HYDRATION. STRICT I&OS, REPEAT SERUM ACETONE. ABG ON ADMISSION. VERIFY HOME MEDICATION, REPEAT AM LABS, PPI THERAPY. IV ROCEPHIN (2) Acute urinary retention Status: Acute (3) UTI (urinary tract infection) Status: Acute - Allergies Allergies/Adverse Reactions: Allergies Allergy/AdvReac Type Severity Reaction Status Date / Time lorazepam [From Ativan] Allergy Verified 04/06/19 17:33
[2021-03-08 14:19] LABS: ALANINE AMINOTRANSFERASE 32 Units/L (12-78); ALBUMIN 2.6 g/dL (3.4-5.0); ALKALINE PHOSPHATASE 148 Units/L (46-116); ASPARTATE AMINO TRANSFERASE 11 Units/L (15-37); BLOOD UREA NITROGEN 5 mg/dL (7-18); CALCIUM 8.6 mg/dL (8.5-10.1); CARBON DIOXIDE 30.7 mmol/L (21-32); CHLORIDE 103 mmol/L (98-107); COR CA(FOR HYPOALB) 9.7 mg/dL (8.5-10.1); COR NA(FOR HYPERGLY) 141 mmol/L (136-145); SODIUM 138 mmol/L (136-145); TOTAL PROTEIN 6.2 g/dL (6.4-8.2); eGFR NON BLACK RACES > 60 (>60)
[2021-03-08] MEDS: SNACK - Diabetic Appropriate PO SCH (20:35)
[2021-03-09 06:11] LABS: BASOPHILS # (AUTO) 0.1 X10^3/uL (0.0-0.1); BASOPHILS % (AUTO) 0.6 % (0.2-1.0); EOSINOPHILS # (AUTO) 0.1 x10^3/uL (0.0-0.2); EOSINOPHILS % (AUTO) 0.3 % (0.9-2.9); HEMATOCRIT 42.5 % (42.0-54.0); HEMOGLOBIN 14.5 g/dL (13.5-18.0); LYMPHOCYTES # (AUTO) 1.1 X10^3/uL (1.3-2.9); MEAN CORPUSCULAR HEMOGLOBIN 31.9 pg (27.0-34.0); MEAN CORPUSCULAR VOLUME 93.9 fL (80.0-100.0); MEAN PLATELET VOLUME 8.9 fL (7.4-11.0); MONOCYTES # (AUTO) 0.7 x10^3/uL (0.3-0.8); MONOCYTES % (AUTO) 3.7 % (0.0-13.0); NEUTROPHILS # (AUTO) 17.3 x10^3/uL (2.2-4.8); NEUTROPHILS % (AUTO) 89.4 % (42.0-75.0); PLATELET COUNT 337 X10^3/uL (150.0-450.0); RED BLOOD COUNT 4.53 X10^6/uL (4.7-6.0); RED CELL DISTRIBUTION WIDTH 13.3 % (11.6-16.5); WHITE BLOOD COUNT 19.3 X10^3/uL (3.6-10.0)
[2021-03-09 06:33] LABS: ALANINE AMINOTRANSFERASE 43 Units/L (12-78); ALBUMIN 3.2 g/dL (3.4-5.0); ALKALINE PHOSPHATASE 177 Units/L (46-116); ASPARTATE AMINO TRANSFERASE 24 Units/L (15-37); BLOOD UREA NITROGEN 7 mg/dL (7-18); CALCIUM 9.2 mg/dL (8.5-10.1); CHLORIDE 100 mmol/L (98-107); COR CA(FOR HYPOALB) 9.8 mg/dL (8.5-10.1); COR NA(FOR HYPERGLY) 138 mmol/L (136-145); CREATININE 0.57 mg/dL (0.70-1.30); SODIUM 137 mmol/L (136-145); TOTAL PROTEIN 7.4 g/dL (6.4-8.2); eGFR NON BLACK RACES > 60 (>60)
[2021-03-09] MEDS: ROCEPHIN VIAL 1 GRAM 1 G in NS 100 ML IV + SPIKE MINIBAG* 100 ML IV SCH (08:31)
[2021-03-09] MEDS: MOTRIN TAB 800 MG PO PRN ×2 (11:35→19:36)
[2021-03-09] MEDS: HumuLIN R SC PRN ×2 (12:10→17:41)
[2021-03-09 13:29] VITALS: BMI 16.2
[2021-03-09] MEDS: NS 1000 ML 1,000 ML IV SCH (16:00)
[2021-03-09] MEDS ORDERED: ZOFRAN INJ 4 MG VIAL ONE (17:20)
[2021-03-09] MEDS: ZOFRAN INJ 4 MG VIAL IVP PRN (17:42)
[2021-03-09] MEDS: PROTONIX INJ 40 MG VIAL IVP SCH (21:13)
[2021-03-09] MEDS: SNACK - Diabetic Appropriate PO SCH (21:13)
[2021-03-09] MEDS: NovoLIN N or HumuLIN N SC SCH (21:21)
[2021-03-09] MEDS ORDERED: TYLENOL 325 MG TAB PO ONE (22:24)
[2021-03-09] MEDS: TYLENOL 325 MG TAB PO PRN (22:27)
[2021-03-10] MEDS: NS 1000 ML 1,000 ML IV SCH ×2 (05:49→20:35)
[2021-03-10] MEDS: NovoLIN N or HumuLIN N SC SCH ×2 (08:32→20:35)
[2021-03-10] MEDS: PROTONIX INJ 40 MG VIAL IVP SCH ×2 (08:33→20:35)
[2021-03-10] MEDS: ROCEPHIN VIAL 1 GRAM 1 G in NS 100 ML IV + SPIKE MINIBAG* 100 ML IV SCH (08:33)
[2021-03-10] MEDS: VISTARIL PO PRN ×2 (08:34→23:11)
[2021-03-10 10:18] LABS: BASOPHILS # (AUTO) 0.1 X10^3/uL (0.0-0.1); BASOPHILS % (AUTO) 0.6 % (0.2-1.0); EOSINOPHILS % (AUTO) 0.1 % (0.9-2.9); HEMATOCRIT 37.8 % (42.0-54.0); HEMOGLOBIN 12.9 g/dL (13.5-18.0); LYMPHOCYTES # (AUTO) 0.2 X10^3/uL (1.3-2.9); MEAN CORPUSCULAR HEMOGLOBIN 31.7 pg (27.0-34.0); MEAN CORPUSCULAR VOLUME 93.1 fL (80.0-100.0); MEAN PLATELET VOLUME 8.7 fL (7.4-11.0); MONOCYTES # (AUTO) 0.2 x10^3/uL (0.3-0.8); MONOCYTES % (AUTO) 1.4 % (0.0-13.0); NEUTROPHILS # (AUTO) 14.9 x10^3/uL (2.2-4.8); NEUTROPHILS % (AUTO) 96.9 % (42.0-75.0); PLATELET COUNT 179 X10^3/uL (150.0-450.0); RED BLOOD COUNT 4.06 X10^6/uL (4.7-6.0); RED CELL DISTRIBUTION WIDTH 13.5 % (11.6-16.5); WHITE BLOOD COUNT 15.4 X10^3/uL (3.6-10.0)
[2021-03-10 10:27] LABS: SERUM ACETONE SMALL (NEGATIVE)
[2021-03-10 10:28] LABS: ALANINE AMINOTRANSFERASE 46 Units/L (12-78); ALBUMIN 2.4 g/dL (3.4-5.0); ALKALINE PHOSPHATASE 191 Units/L (46-116); ASPARTATE AMINO TRANSFERASE 50 Units/L (15-37); BLOOD UREA NITROGEN 10 mg/dL (7-18); CALCIUM 8.1 mg/dL (8.5-10.1); CARBON DIOXIDE 25.9 mmol/L (21-32); CHLORIDE 100 mmol/L (98-107); COR CA(FOR HYPOALB) 9.4 mg/dL (8.5-10.1); COR NA(FOR HYPERGLY) 140 mmol/L (136-145); CREATININE 0.72 mg/dL (0.70-1.30); SODIUM 137 mmol/L (136-145); TOTAL PROTEIN 5.9 g/dL (6.4-8.2); eGFR NON BLACK RACES > 60 (>60)
[2021-03-10 10:36] LABS: BAND NEUTROPHILS % 2 % (0-10)
[2021-03-10 10:37] LABS: PLATELET MORPHOLOGY COMMENT NORMAL (NORMAL)
--- NOTE | 2021-03-10 11:46 | CT ---
HISTORYSTOOL AND URINE INCONTIENCESTUDYLUMBAR SPINE W/O CONCOMPARISONNoneTECHNIQUEMultiple CT axial images of the lumbar spine were obtained without IV contrast. Coronal and sagittal images were reconstructed. Dose reduction techniques included Automated Exposure Control (AEC) and adjustment of mA and kV.FINDINGSThere is no significant scoliosis. The usual lordosis is maintained. The heights of the vertebral bodies are normal. No spondylolisthesis. There is no fracture. No significant degenerative change.I do not see any obvious disc herniation given the limitations of the technique.No hydronephrosis. No abdominal aortic aneurysm. Calcified gallstone is present. Parada balloon catheter in the urinary bladder.IMPRESSION1. No significant abnormality in the lumbar spine2. CholelithiasisElectronically signed by: Donato Ritchie (Mar 10, 2021 11:43:53)
[2021-03-10] MEDS: CIPRO IV 400 MG PREMIX* 400 MG/200 ML IV.SOLN. IV SCH ×2 (11:50→22:00)
[2021-03-10] MEDS: FLAGYL IV PREMIX 500 MG BAG 500 MG/100 ML BAG IV SCH ×3 (13:30→20:35)
--- NOTE | 2021-03-10 13:44 | CT ---
HISTORYUrinary retention, abdominal painSTUDYCT abdomen and pelvis without contrastCOMPARISONNoneTECHNIQUEMultiple axial images of the abdomen and pelvis were obtained from the lung bases to the pubic symphysis without the administration of IV contrast. Oral contrast was given for bowel opacification dose reduction techniques including Automated Exposure Control (AEC) and adjustment of mA and kV were utilized.FINDINGSThe visualized portions of the lung bases are unremarkable . The liver, spleen, pancreas, kidneys, and adrenal glands are unremarkable in their CT appearance. The gallbladder appears contracted with gallbladder wall thickening or edema. The findings are nonspecific. Distension of the central small bowel is observed with filling defect noted extending within the left upper quadrant and may be on the basis of associated intussusception with dilatation of small bowel in the left upper quadrant noted. The findings may be transit but continued evaluation will be needed. The colon is unremarkable. Specifically, there is no diverticulosis noted within the sigmoid colon. A Parada catheter is noted the urinary bladder with air within the nondependent portion presumably on the basis of recent Parada catheter placement. The bony structures are grossly intact.IMPRESSIONNonspecific gallbladder wall thickening and edema. The gallbladder does appear to be contracted.Filling defect with small bowel distention and dilatation of the left upper quadrant. Proximal small bowel distention is noted with contrast proximal to this finding. Findings may represent transit small bowel intussusception or associated mass and leading edge. Continued clinical follow-up will be needed. Evaluation is limited without the benefit of IV contrast.Electronically signed by: JO DAVIES (Mar 10, 2021 13:42:09)
[2021-03-10 16:25] LABS: CRYPTOSPORIDIUM PARVUM ANTIGEN NEGATIVE (NEGATIVE); GIARDIA LAMBLIA ANTIGEN NEGATIVE (NEGATIVE)
[2021-03-10] MEDS: SNACK - Diabetic Appropriate PO SCH (20:36)
[2021-03-11] MEDS ORDERED: NS 100 ML IV 0 ML ONE (03:28)
[2021-03-11] MEDS: FLAGYL IV PREMIX 500 MG BAG 500 MG/100 ML BAG IV SCH ×4 (05:10→21:39)
[2021-03-11] MEDS: CIPRO IV 400 MG PREMIX* 400 MG/200 ML IV.SOLN. IV SCH ×2 (08:19→20:35)
[2021-03-11] MEDS: PROTONIX INJ 40 MG VIAL IVP SCH ×2 (08:19→20:37)
[2021-03-11] MEDS: NovoLIN N or HumuLIN N SC SCH ×3 (08:20→22:39)
[2021-03-11] MEDS: NS 1000 ML 1,000 ML IV SCH ×2 (08:32→22:18)
--- NOTE | 2021-03-11 10:13 | DR.PROGNOT ---
Hospital Progress Notes - Progress Note for Day of: Progress Note Date: 03/11/21 - Chief Complaint Chief Complaint: no abdominal pain today . no nausea or vomiting .irregular bowel habits . WBC 15.4.. BS 237. normal LFT .. BUN/Creat normal .. Albumin 2.4. CT possible intussusception of small bowel . - Past Medical Family Social History Past Med/Fam/Surg Hx: No changes since H&P Allergies: Allergies lorazepam [From Ativan] Allergy (Verified 04/06/19 17:33) iodine Adverse Reaction (Severe, Verified 03/11/21 03:33) ANAPHALEXIS REACTION - Review Of Systems ROS: No change since H&P - Vital Signs Vital Signs: Temperature 98.5 F Pulse Rate 96 Respiratory Rate 18 Blood Pressure [Right Arm] 123/80 Blood Pressure 115/68 O2 Sat by Pulse Oximetry 97 - Physical Exam Oriented: Normal Eyes: Normal Ear: Normal Nose: Normal Throat: Dry Cardiovascular: Normal, Edema : Normal GI:Auscultation: Normal GI:Palpation: Normal GI: Tenderness: Epigastric (soft. flat abdomen .. non tender with good bowel sounds ..), Mild Skin: Decreased Turgur Musculoskeletal: Normal Psychiatric: Normal Mood Description: Calm Speech Pattern: Clear, Appropriate - Laboratory and Diagnostics Result Diagrams: 03/10/21 09:54 03/10/21 09:54 Labs: 03/10/21 15:15 Stool - Final 03/08/21 03:18 Urine,Catheterized Urine Culture - Final Staphylococcus Aureus Laboratory WBC 15.4 X10^3/uL (3.6-10.0) H 03/10/21 09:54 RBC 4.06 X10^6/uL (4.7-6.0) L 03/10/21 09:54 Hgb 12.9 g/dL (13.5-18.0) L 03/10/21 09:54 Hct 37.8 % (42.0-54.0) L 03/10/21 09:54 MCV 93.1 fL (80.0-100.0) 03/10/21 09:54 MCH 31.7 pg (27.0-34.0) 03/10/21 09:54 MCHC 34.0 g/dL (33.0-35.0) 03/10/21 09:54 RDW 13.5 % (11.6-16.5) 03/10/21 09:54 Plt Count 179 X10^3/uL (150.0-450.0) 03/10/21 09:54 Plt Count Comment Adequate (ADEQUATE) 03/10/21 09:54 MPV 8.7 fL (7.4-11.0) 03/10/21 09:54 Neut % (Auto) 96.9 % (42.0-75.0) H 03/10/21 09:54 Lymph % (Auto) 1.0 % (21.0-51.0) L 03/10/21 09:54 Emmet % (Auto) 1.4 % (0.0-13.0) 03/10/21 09:54 Eos % (Auto) 0.1 % (0.9-2.9) L 03/10/21 09:54 Baso % (Auto) 0.6 % (0.2-1.0) 03/10/21 09:54 Neut # (Auto) 14.9 x10^3/uL (2.2-4.8) H 03/10/21 09:54 Lymph # (Auto) 0.2 X10^3/uL (1.3-2.9) L 03/10/21 09:54 Emmet # (Auto) 0.2 x10^3/uL (0.3-0.8) L 03/10/21 09:54 Eos # (Auto) 0.0 x10^3/uL (0.0-0.2) 03/10/21 09:54 Baso # (Auto) 0.1 X10^3/uL (0.0-0.1) 03/10/21 09:54 Absolute Nucleated RBC 0.0 /100WBC 03/10/21 09:54 Total Counted 100 03/10/21 09:54 Neutrophils % (Manual) 96 % (39-76) H 03/10/21 09:54 Band Neutrophils % 2 % (0-10) 03/10/21 09:54 Lymphocytes % (Manual) 1 % (13-43) L 03/10/21 09:54 Monocytes % (Manual) 1 % (4-9) L 03/10/21 09:54 Plt Morphology Comment Normal (NORMAL) 03/10/21 09:54 RBC Morphology Normal (NORMAL) 03/10/21 09:54 Sample Site Lr 03/08/21 05:45 ABG pH 7.420 (7.35-7.45) 03/08/21 05:45 ABG pCO2 36.0 mmHg (35.0-45.0) 03/08/21 05:45 ABG pO2 90.0 mmHg (80.0-100.0) 03/08/21 05:45 ABG HCO3 23.4 mmol/L (22-26) 03/08/21 05:45 ABG O2 Saturation 97.0 % (90-100) 03/08/21 05:45 ABG Base Excess -0.7 mmol/L (-2.0-2.0) 03/08/21 05:45 Clint Test Pos 03/08/21 05:45 A-a Gradient 15.0 mmHg 03/08/21 05:45 FiO2 21 03/08/21 05:45 Blood Gas Comments Emmie well ae 03/08/21 05:45 Sodium 137 mmol/L (136-145) 03/10/21 09:54 Corrected Sodium 140 mmol/L (136-145) 03/10/21 09:54 Potassium 4.1 mmol/L (3.5-5.1) 03/10/21 09:54 Chloride 100 mmol/L (98-107) 03/10/21 09:54 Carbon Dioxide 25.9 mmol/L (21-32) 03/10/21 09:54 BUN 10 mg/dL (7-18) 03/10/21 09:54 Creatinine 0.72 mg/dL (0.70-1.30) 03/10/21 09:54 Est GFR (MDRD) Af Amer > 60 (>60) 03/10/21 09:54 Est GFR (MDRD) Non-Af > 60 (>60) 03/10/21 09:54 Glucose 237 mg/dL (65-99) H 03/10/21 09:54 Calcium 8.1 mg/dL (8.5-10.1) L 03/10/21 09:54 Corrected Calcium 9.4 mg/dL (8.5-10.1) 03/10/21 09:54 Total Bilirubin 0.40 mg/dL (0.2-1.0) 03/10/21 09:54 AST 50 Units/L (15-37) H 03/10/21 09:54 ALT 46 Units/L (12-78) 03/10/21 09:54 Alkaline Phosphatase 191 Units/L (46-116) H 03/10/21 09:54 Total Protein 5.9 g/dL (6.4-8.2) L 03/10/21 09:54 Albumin 2.4 g/dL (3.4-5.0) L 03/10/21 09:54 Globulin 3.5 g/dL (2.5-4.5) 03/10/21 09:54 Albumin/Globulin Ratio 0.7 Ratio (1.1-2.1) L 03/10/21 09:54 Lipase 48 Units/L (73-393) L 03/08/21 03:18 Specimen Type Catherized urine 03/08/21 03:18 Urine Color Straw (YELLOW) 03/08/21 03:18 Urine Appearance Clear (CLEAR) 03/08/21 03:18 Urine pH 6.0 (5.0 - 8.0) 03/08/21 03:18 Ur Specific S[place]y 1.010 (1.000-1.030) 03/08/21 03:18 Urine Protein Negative (NEGATIVE) 03/08/21 03:18 Urine Glucose (UA) 4+ (NEGATIVE) 03/08/21 03:18 Urine Ketones 3+ (NEGATIVE) 03/08/21 03:18 Urine Occult Blood 3+ (NEGATIVE) 03/08/21 03:18 Urine Nitrite Negative (NEGATIVE) 03/08/21 03:18 Urine Bilirubin Negative (NEGATIVE) 03/08/21 03:18 Urine Urobilinogen Normal (NORMAL) 03/08/21 03:18 Ur Leukocyte Esterase 3+ (NEGATIVE) 03/08/21 03:18 Urine RBC None seen /HPF (0-3) 03/08/21 03:18 Urine WBC 10-20 /HPF (0-5) A 03/08/21 03:18 Ur Squamous Epith Cells Negative /HPF (NEGATIVE) 03/08/21 03:18 Urine Bacteria 1+ /HPF (NEGATIVE) 03/08/21 03:18 Ur Culture Indicated? Yes/culture set up 03/08/21 03:18 Stool Description 150g mucoid green 03/10/21 15:15 Stool Description 150g mucoid green 03/10/21 15:15 Stl Occult Blood (IFOB) Positive (NEGATIVE) A 03/10/21 15:15 Stool for White Cells Positive (NEGATIVE) A 03/10/21 15:15 Stl C. diff Tox B Gene Negative (NEGATIVE) 03/10/21 15:15 Stl C. diff [id number] Presumptive negative (NEGATIVE) 03/10/21 15:15 Stool H. pylori Ag Positive (NEGATIVE) A 03/10/21 15:15 Urine Opiates Screen Positive (NEG=<300) 03/08/21 03:18 Urine Methadone Screen Negative (NEG=<300) 03/08/21 03:18 Ur Barbiturates Screen Negative (NEG=<200) 03/08/21 03:18 Ur Phencyclidine Scrn Negative (NEG=<25) 03/08/21 03:18 Ur Amphetamines Screen Negative (NEG=<1000) 03/08/21 03:18 U Benzodiazepines Scrn Negative (NEG=<200) 03/08/21 03:18 Urine Cocaine Screen Negative (NEG=<300) 03/08/21 03:18 U Marijuana (THC) Screen Positive (NEG=<50) A 03/08/21 03:18 Acetone, Semi-Quant Small (NEGATIVE) H 03/10/21 09:54 Ur C. trach DNA (PCR) Not detected (NOT DETECT) 03/08/21 03:18 Cryptosporid parvum Ag Negative (NEGATIVE) 03/10/21 15:15 Giardia lamblia Ag Negative (NEGATIVE) 03/10/21 15:15 U N.gonorrhoeae DNA PCR Not detected (NOT DETECT) 03/08/21 03:18 SARS CoV-2 RNA Rapid LILLI Negative (NEGATIVE) 03/08/21 07:15 - Assessment and Plan 1: DM with DKA. UTI . abnormal abdominl and pelvic CT possible intussusception of small bowel . no bowel obstruction . to advance diet . small bowel follow through which could be done as out Pt . to advance diet - Problem Patient Problems: Patient Problems Diabetic ketoacidosis (Acute) E11.10 Acute urinary retention (Acute) R33.8 UTI (urinary tract infection) (Acute) N39.0
[2021-03-11 10:44] LABS: BASOPHILS % (AUTO) 0.5 % (0.2-1.0); EOSINOPHILS % (AUTO) 0.4 % (0.9-2.9); HEMATOCRIT 34.5 % (42.0-54.0); HEMOGLOBIN 11.8 g/dL (13.5-18.0); LYMPHOCYTES # (AUTO) 0.4 X10^3/uL (1.3-2.9); LYMPHOCYTES % (AUTO) 4.8 % (21.0-51.0); MEAN CORPUSCULAR HEMOGLOBIN 32.5 pg (27.0-34.0); MEAN CORPUSCULAR HGB CONC 34.2 g/dL (33.0-35.0); MEAN CORPUSCULAR VOLUME 95.1 fL (80.0-100.0); MEAN PLATELET VOLUME 9.4 fL (7.4-11.0); MONOCYTES # (AUTO) 0.3 x10^3/uL (0.3-0.8); MONOCYTES % (AUTO) 3.2 % (0.0-13.0); NEUTROPHILS % (AUTO) 91.1 % (42.0-75.0); PLATELET COUNT 121 X10^3/uL (150.0-450.0); RED BLOOD COUNT 3.63 X10^6/uL (4.7-6.0); RED CELL DISTRIBUTION WIDTH 13.2 % (11.6-16.5); WHITE BLOOD COUNT 8.8 X10^3/uL (3.6-10.0)
[2021-03-11 11:02] LABS: ALANINE AMINOTRANSFERASE 37 Units/L (12-78); ALKALINE PHOSPHATASE 175 Units/L (46-116); ASPARTATE AMINO TRANSFERASE 26 Units/L (15-37); BLOOD UREA NITROGEN 8 mg/dL (7-18); CALCIUM 7.8 mg/dL (8.5-10.1); CHLORIDE 100 mmol/L (98-107); COR CA(FOR HYPOALB) 9.4 mg/dL (8.5-10.1); COR NA(FOR HYPERGLY) 136 mmol/L (136-145); CREATININE 0.77 mg/dL (0.70-1.30); SODIUM 131 mmol/L (136-145); TOTAL PROTEIN 5.1 g/dL (6.4-8.2); eGFR NON BLACK RACES > 60 (>60)
[2021-03-11 11:33] LABS: SERUM ACETONE SMALL (NEGATIVE)
[2021-03-11] MEDS: HumuLIN R SC PRN ×2 (11:35→20:55)
[2021-03-11] MEDS: VISTARIL PO PRN (11:36)
[2021-03-11 11:39] LABS: BAND NEUTROPHILS % 2 % (0-10)
[2021-03-11 11:40] LABS: PLATELET MORPHOLOGY COMMENT NORMAL (NORMAL)
--- NOTE | 2021-03-11 12:05 | US ---
HISTORYABDOMINAL PAINSTUDYGALL BLADDERCOMPARISONCT abdomen and pelvis March 10, 2021TECHNIQUEMultiple aguirre scale and color flow Doppler images of the right upper quadrant were obtained.FINDINGSThe liver is normal in echotexture but mildly enlarged in size measuring 18 cm sagittal. No focal intraparenchymal mass or intrahepatic biliary ductal dilatation can be observed. Normal flow is seen in the hepatic veins within the portal vein. Normal flow is also seen in the hepatic artery. . No pericholecystic fluid or gallbladder wall thickening can be observed .The right kidney appears normal in size without focal parenchymal mass or nephrolithiasis. The right kidney measurers 13.3 cm in length by 6.7 cm AP cortical thickness 1.7 cm with a transverse diameter of 8 cm. There is normal vascular flow. The gallbladder is identified on the same image that the right kidney was measured in the transverse plane it appears contracted. It lies anterior to the mid pole the right kidney as it did on the CT scan performed yesterday. There is mild wall thickening which are measure up to 4.8 mm on 1 image. No stones are identified. The common duct is normal measuring 1.6 mm. No hydronephrosis or perirenal fluid can be observed. The pancreatic head and body are unremarkable. The pancreatic tail is largely obscured by overlying bowel gas. Normal flow is seen in the IVC.IMPRESSIONThe liver is mildly enlarged but no dilated ducts or focal hepatic lesions are observed. The gallbladder is partially contracted but no stones or sludge are observed. There is mild wall thickening but there appears to be edema and hypervascular flow surrounding the gallbladder. This is similar to what was seen on the CT scan.The right kidney is normal. The pancreas aorta and IVC are normal.Electronically signed by: RENE LEE (Mar 11, 2021 12:03:41)
[2021-03-11] MEDS: TYLENOL 325 MG TAB PO PRN (14:59)
[2021-03-11] MEDS: MOTRIN TAB 800 MG PO PRN (16:16)
[2021-03-11] MEDS: DIFLUCAN 200 MG IV PREMIX* 200 MG/100 ML BAG IV SCH (17:22)
[2021-03-11 20:20] LABS: MAGNESIUM 1.8 mg/dL (1.7-2.9)
[2021-03-11] MEDS ORDERED: POTASSIUM CHLORIDE LIQ 20 MEQ UDC PO PRN (20:24)
[2021-03-11] MEDS ORDERED: POTASSIUM CHL 40 MEQ/NS 0.45% 500 ML IV PRN (20:24)
[2021-03-11] MEDS ORDERED: KLOR-CON PO PRN (20:24)
[2021-03-11] MEDS ORDERED: POTASSIUM CHL 60 MEQ/NS 0.45% 500 ML IV PRN (20:24)
[2021-03-11] MEDS ORDERED: K-DUR TAB 20 MEQ PO PRN (20:24)
[2021-03-11] MEDS ORDERED: MICRO K EXTEN CAP 10 MEQ PO PRN (20:24)
[2021-03-11] MEDS: SNACK - Diabetic Appropriate PO SCH (20:31)
[2021-03-11] MEDS: MAGNESIUM SULFATE 1 GRAM/100 mL PREMIX 1 GM/100 ML BAG IV PRN ×2 (22:40→23:42)
[2021-03-12] MEDS: K-RIDER 10 MEQ/NS 100 ML 10 MEQ/100 ML BAG IV PRN ×4 (00:39→04:47)
[2021-03-12] MEDS: FLAGYL IV PREMIX 500 MG BAG 500 MG/100 ML BAG IV SCH ×4 (02:42→22:10)
[2021-03-12 08:35] LABS: BASOPHILS % (AUTO) 0.2 % (0.2-1.0); EOSINOPHILS # (AUTO) 0.1 x10^3/uL (0.0-0.2); EOSINOPHILS % (AUTO) 0.8 % (0.9-2.9); HEMATOCRIT 39.1 % (42.0-54.0); HEMOGLOBIN 13.4 g/dL (13.5-18.0); LYMPHOCYTES # (AUTO) 0.5 X10^3/uL (1.3-2.9); LYMPHOCYTES % (AUTO) 4.5 % (21.0-51.0); MEAN CORPUSCULAR HEMOGLOBIN 32.5 pg (27.0-34.0); MEAN CORPUSCULAR HGB CONC 34.3 g/dL (33.0-35.0); MEAN CORPUSCULAR VOLUME 94.7 fL (80.0-100.0); MEAN PLATELET VOLUME 9.2 fL (7.4-11.0); MONOCYTES # (AUTO) 0.3 x10^3/uL (0.3-0.8); MONOCYTES % (AUTO) 3.2 % (0.0-13.0); NEUTROPHILS # (AUTO) 9.7 x10^3/uL (2.2-4.8); NEUTROPHILS % (AUTO) 91.3 % (42.0-75.0); PLATELET COUNT 129 X10^3/uL (150.0-450.0); RED BLOOD COUNT 4.13 X10^6/uL (4.7-6.0); RED CELL DISTRIBUTION WIDTH 13.4 % (11.6-16.5); WHITE BLOOD COUNT 10.6 X10^3/uL (3.6-10.0)
[2021-03-12] MEDS: DIFLUCAN 200 MG IV PREMIX* 200 MG/100 ML BAG IV SCH (08:54)
[2021-03-12] MEDS: CIPRO IV 400 MG PREMIX* 400 MG/200 ML IV.SOLN. IV SCH ×2 (08:54→22:59)
[2021-03-12] MEDS: PROTONIX INJ 40 MG VIAL IVP SCH ×2 (08:54→22:10)
[2021-03-12 08:57] LABS: ALANINE AMINOTRANSFERASE 47 Units/L (12-78); ALBUMIN 2.4 g/dL (3.4-5.0); ALKALINE PHOSPHATASE 311 Units/L (46-116); ASPARTATE AMINO TRANSFERASE 55 Units/L (15-37); BAND NEUTROPHILS % 5 % (0-10); BLOOD UREA NITROGEN 6 mg/dL (7-18); CALCIUM 8.1 mg/dL (8.5-10.1); CARBON DIOXIDE 25.6 mmol/L (21-32); CHLORIDE 103 mmol/L (98-107); COR CA(FOR HYPOALB) 9.4 mg/dL (8.5-10.1); CREATININE 0.67 mg/dL (0.70-1.30); PLATELET MORPHOLOGY COMMENT NORMAL (NORMAL); SODIUM 136 mmol/L (136-145); eGFR NON BLACK RACES > 60 (>60)
[2021-03-12] MEDS: NovoLIN N or HumuLIN N SC SCH ×2 (09:45→22:10)
[2021-03-12] MEDS: NS 1000 ML 1,000 ML IV SCH ×2 (11:07→22:05)
[2021-03-12] MEDS: HumuLIN R SC PRN ×2 (11:30→16:12)
[2021-03-12] MEDS: NYSTATIN POWDER TOP SCH ×2 (12:03→22:10)
[2021-03-12] MEDS: VSL#3 PO SCH (12:03)
--- NOTE | 2021-03-12 13:25 | DR.PROGNOT ---
Hospital Progress Notes - Progress Note for Day of: Progress Note Date: 03/12/21 - Chief Complaint Chief Complaint: no abdominal pain today . was nauseated early without vomiting . still having severe diarrhea with watery stool . WBC 10.. C Dif negative. HPylori + . BS78. temp 99.6 - Past Medical Family Social History Past Med/Fam/Surg Hx: No changes since H&P Allergies: Allergies lorazepam [From Ativan] Allergy (Verified 04/06/19 17:33) iodine Adverse Reaction (Severe, Verified 03/11/21 03:33) ANAPHALEXIS REACTION - Review Of Systems ROS: No change since H&P - Vital Signs Vital Signs: Temperature 99.6 F Pulse Rate 99 Respiratory Rate 27 Blood Pressure [Right Arm] 123/80 Blood Pressure 135/83 O2 Sat by Pulse Oximetry 98 - Physical Exam Oriented: Normal Eyes: Normal Ear: Normal Nose: Normal Throat: Dry Cardiovascular: Normal, Edema : Normal GI:Auscultation: Normal GI:Palpation: Normal GI: Tenderness: Epigastric (soft. flat abdomen .. non tender with good bowel sounds ..), Mild Skin: Decreased Turgur Musculoskeletal: Normal Psychiatric: Normal Mood Description: Calm Speech Pattern: Clear, Appropriate - Laboratory and Diagnostics Result Diagrams: 03/12/21 07:39 03/12/21 07:39 Labs: 03/09/21 19:56 Blood Blood Culture - Final Staphylococcus Aureus 03/09/21 19:50 Blood Blood Culture - Final Staphylococcus Aureus 03/10/21 15:15 Stool Stool Culture - Preliminary 03/10/21 15:15 Stool - Final 03/08/21 03:18 Urine,Catheterized Urine Culture - Final Staphylococcus Aureus Laboratory WBC 10.6 X10^3/uL (3.6-10.0) H 03/12/21 07:39 RBC 4.13 X10^6/uL (4.7-6.0) L 03/12/21 07:39 Hgb 13.4 g/dL (13.5-18.0) L 03/12/21 07:39 Hct 39.1 % (42.0-54.0) L 03/12/21 07:39 MCV 94.7 fL (80.0-100.0) 03/12/21 07:39 MCH 32.5 pg (27.0-34.0) 03/12/21 07:39 MCHC 34.3 g/dL (33.0-35.0) 03/12/21 07:39 RDW 13.4 % (11.6-16.5) 03/12/21 07:39 Plt Count 129 X10^3/uL (150.0-450.0) L 03/12/21 07:39 Plt Count Comment Decreased (ADEQUATE) 03/12/21 07:39 MPV 9.2 fL (7.4-11.0) 03/12/21 07:39 Neut % (Auto) 91.3 % (42.0-75.0) H 03/12/21 07:39 Lymph % (Auto) 4.5 % (21.0-51.0) L 03/12/21 07:39 Pine % (Auto) 3.2 % (0.0-13.0) 03/12/21 07:39 Eos % (Auto) 0.8 % (0.9-2.9) L 03/12/21 07:39 Baso % (Auto) 0.2 % (0.2-1.0) 03/12/21 07:39 Neut # (Auto) 9.7 x10^3/uL (2.2-4.8) H 03/12/21 07:39 Lymph # (Auto) 0.5 X10^3/uL (1.3-2.9) L 03/12/21 07:39 Pine # (Auto) 0.3 x10^3/uL (0.3-0.8) 03/12/21 07:39 Eos # (Auto) 0.1 x10^3/uL (0.0-0.2) 03/12/21 07:39 Baso # (Auto) 0.0 X10^3/uL (0.0-0.1) 03/12/21 07:39 Absolute Nucleated RBC 0.0 /100WBC 03/12/21 07:39 Total Counted 100 03/12/21 07:39 Neutrophils % (Manual) 90 % (39-76) H 03/12/21 07:39 Band Neutrophils % 5 % (0-10) 03/12/21 07:39 Lymphocytes % (Manual) 4 % (13-43) L 03/12/21 07:39 Monocytes % (Manual) 1 % (4-9) L 03/12/21 07:39 Eosinophils % (Manual) 1 % (0-6) 03/11/21 09:52 Plt Morphology Comment Normal (NORMAL) 03/12/21 07:39 RBC Morphology Normal (NORMAL) 03/12/21 07:39 Sample Site Lr 03/08/21 05:45 ABG pH 7.420 (7.35-7.45) 03/08/21 05:45 ABG pCO2 36.0 mmHg (35.0-45.0) 03/08/21 05:45 ABG pO2 90.0 mmHg (80.0-100.0) 03/08/21 05:45 ABG HCO3 23.4 mmol/L (22-26) 03/08/21 05:45 ABG O2 Saturation 97.0 % (90-100) 03/08/21 05:45 ABG Base Excess -0.7 mmol/L (-2.0-2.0) 03/08/21 05:45 Clint Test Pos 03/08/21 05:45 A-a Gradient 15.0 mmHg 03/08/21 05:45 FiO2 21 03/08/21 05:45 Blood Gas Comments Emmie well ae 03/08/21 05:45 Sodium 136 mmol/L (136-145) 03/12/21 07:39 Corrected Sodium TNP 03/12/21 07:39 Potassium 4.5 mmol/L (3.5-5.1) 03/12/21 07:39 Chloride 103 mmol/L (98-107) 03/12/21 07:39 Carbon Dioxide 25.6 mmol/L (21-32) 03/12/21 07:39 BUN 6 mg/dL (7-18) L 03/12/21 07:39 Creatinine 0.67 mg/dL (0.70-1.30) L 03/12/21 07:39 Est GFR (MDRD) Af Amer > 60 (>60) 03/12/21 07:39 Est GFR (MDRD) Non-Af > 60 (>60) 03/12/21 07:39 Glucose 78 mg/dL (65-99) 03/12/21 07:39 Calcium 8.1 mg/dL (8.5-10.1) L 03/12/21 07:39 Corrected Calcium 9.4 mg/dL (8.5-10.1) 03/12/21 07:39 Magnesium 2.2 mg/dL (1.7-2.9) 03/12/21 04:42 Total Bilirubin 0.60 mg/dL (0.2-1.0) 03/12/21 07:39 AST 55 Units/L (15-37) H 03/12/21 07:39 ALT 47 Units/L (12-78) 03/12/21 07:39 Alkaline Phosphatase 311 Units/L (46-116) H 03/12/21 07:39 Total Protein 6.0 g/dL (6.4-8.2) L 03/12/21 07:39 Albumin 2.4 g/dL (3.4-5.0) L 03/12/21 07:39 Globulin 3.6 g/dL (2.5-4.5) 03/12/21 07:39 Albumin/Globulin Ratio 0.7 Ratio (1.1-2.1) L 03/12/21 07:39 Lipase 48 Units/L (73-393) L 03/08/21 03:18 Specimen Type Catherized urine 03/08/21 03:18 Urine Color Straw (YELLOW) 03/08/21 03:18 Urine Appearance Clear (CLEAR) 03/08/21 03:18 Urine pH 6.0 (5.0 - 8.0) 03/08/21 03:18 Ur Specific [place] 1.010 (1.000-1.030) 03/08/21 03:18 Urine Protein Negative (NEGATIVE) 03/08/21 03:18 Urine Glucose (UA) 4+ (NEGATIVE) 03/08/21 03:18 Urine Ketones 3+ (NEGATIVE) 03/08/21 03:18 Urine Occult Blood 3+ (NEGATIVE) 03/08/21 03:18 Urine Nitrite Negative (NEGATIVE) 03/08/21 03:18 Urine Bilirubin Negative (NEGATIVE) 03/08/21 03:18 Urine Urobilinogen Normal (NORMAL) 03/08/21 03:18 Ur Leukocyte Esterase 3+ (NEGATIVE) 03/08/21 03:18 Urine RBC None seen /HPF (0-3) 03/08/21 03:18 Urine WBC 10-20 /HPF (0-5) A 03/08/21 03:18 Ur Squamous Epith Cells Negative /HPF (NEGATIVE) 03/08/21 03:18 Urine Bacteria 1+ /HPF (NEGATIVE) 03/08/21 03:18 Ur Culture Indicated? Yes/culture set up 03/08/21 03:18 Stool Description 150g mucoid green 03/10/21 15:15 Stool Description 150g mucoid green 03/10/21 15:15 Stl Occult Blood (IFOB) Positive (NEGATIVE) A 03/10/21 15:15 Stool for White Cells Positive (NEGATIVE) A 03/10/21 15:15 Stl C. diff Tox B Gene Negative (NEGATIVE) 03/10/21 15:15 Stl C. diff [id number] Presumptive negative (NEGATIVE) 03/10/21 15:15 Stool H. pylori Ag Positive (NEGATIVE) A 03/10/21 15:15 Urine Opiates Screen Positive (NEG=<300) 03/08/21 03:18 Urine Methadone Screen Negative (NEG=<300) 03/08/21 03:18 Ur Barbiturates Screen Negative (NEG=<200) 03/08/21 03:18 Ur Phencyclidine Scrn Negative (NEG=<25) 03/08/21 03:18 Ur Amphetamines Screen Negative (NEG=<1000) 03/08/21 03:18 U Benzodiazepines Scrn Negative (NEG=<200) 03/08/21 03:18 Urine Cocaine Screen Negative (NEG=<300) 03/08/21 03:18 U Marijuana (THC) Screen Positive (NEG=<50) A 03/08/21 03:18 Acetone, Semi-Quant Small (NEGATIVE) H 03/11/21 09:52 Ur C. trach DNA (PCR) Not detected (NOT DETECT) 03/08/21 03:18 SARS-CoV-2 (PCR) Negative (NEGATIVE) 03/11/21 17:35 Cryptosporid parvum Ag Negative (NEGATIVE) 03/10/21 15:15 Giardia lamblia Ag Negative (NEGATIVE) 03/10/21 15:15 Influenza Type A (PCR) Negative (NEGATIVE) 03/11/21 17:35 Influenza Type B (PCR) Negative (NEGATIVE) 03/11/21 17:35 U N.gonorrhoeae DNA PCR Not detected (NOT DETECT) 03/08/21 03:18 RSV (PCR) Negative (NEGATIVE) 03/11/21 17:35 SARS CoV-2 RNA Rapid LILLI Negative (NEGATIVE) 03/08/21 07:15 - Assessment and Plan 1: DKA ( treated ). UTI . sever diarrhea with yeast infection and HP . abnormal abdominl and pelvic CT possible intussusception of small bowel . no bowel obstruction . to advance diet . small bowel follow through which could be done as out Pt . on Diflucan , IVF . future UGI with SBFT - Problem Patient Problems: Patient Problems Diabetic ketoacidosis (Acute) E11.10 Acute urinary retention (Acute) R33.8 UTI (urinary tract infection) (Acute) N39.0
[2021-03-12] MEDS: NYSTATIN CREAM TOP SCH ×2 (13:47→22:10)
[2021-03-12] MEDS: VISTARIL PO PRN (14:25)
[2021-03-12] MEDS: SNACK - Diabetic Appropriate PO SCH (21:59)
[2021-03-13] MEDS: TYLENOL 325 MG TAB PO PRN (01:18)
[2021-03-13] MEDS: ZOFRAN INJ 4 MG VIAL IVP PRN ×3 (01:18→23:15)
[2021-03-13] MEDS: NS 1000 ML 1,000 ML IV SCH ×3 (02:21→21:27)
[2021-03-13] MEDS: FLAGYL IV PREMIX 500 MG BAG 500 MG/100 ML BAG IV SCH ×2 (03:50→09:51)
[2021-03-13] MEDS: HumuLIN R SC PRN ×3 (06:23→21:35)
[2021-03-13 07:56] LABS: BASOPHILS % (AUTO) 0.7 % (0.2-1.0); EOSINOPHILS # (AUTO) 0.1 x10^3/uL (0.0-0.2); EOSINOPHILS % (AUTO) 1.9 % (0.9-2.9); HEMATOCRIT 33.6 % (42.0-54.0); HEMOGLOBIN 11.5 g/dL (13.5-18.0); LYMPHOCYTES % (AUTO) 14.2 % (21.0-51.0); MEAN CORPUSCULAR HEMOGLOBIN 31.9 pg (27.0-34.0); MEAN CORPUSCULAR HGB CONC 34.4 g/dL (33.0-35.0); MEAN CORPUSCULAR VOLUME 92.8 fL (80.0-100.0); MEAN PLATELET VOLUME 9.4 fL (7.4-11.0); MONOCYTES # (AUTO) 0.4 x10^3/uL (0.3-0.8); MONOCYTES % (AUTO) 6.5 % (0.0-13.0); NEUTROPHILS # (AUTO) 5.3 x10^3/uL (2.2-4.8); NEUTROPHILS % (AUTO) 76.7 % (42.0-75.0); PLATELET COUNT 105 X10^3/uL (150.0-450.0); RED BLOOD COUNT 3.62 X10^6/uL (4.7-6.0); RED CELL DISTRIBUTION WIDTH 13.6 % (11.6-16.5); WHITE BLOOD COUNT 6.8 X10^3/uL (3.6-10.0)
[2021-03-13 09:06] LABS: ALANINE AMINOTRANSFERASE 40 Units/L (12-78); ALKALINE PHOSPHATASE 365 Units/L (46-116); ASPARTATE AMINO TRANSFERASE 32 Units/L (15-37); BLOOD UREA NITROGEN 5 mg/dL (7-18); CALCIUM 7.4 mg/dL (8.5-10.1); CARBON DIOXIDE 24.2 mmol/L (21-32); CHLORIDE 101 mmol/L (98-107); COR NA(FOR HYPERGLY) 135 mmol/L (136-145); CREATININE 0.71 mg/dL (0.70-1.30); SODIUM 132 mmol/L (136-145); eGFR NON BLACK RACES > 60 (>60)
[2021-03-13] MEDS: CIPRO IV 400 MG PREMIX* 400 MG/200 ML IV.SOLN. IV SCH ×2 (09:49→21:29)
[2021-03-13] MEDS: NovoLIN N or HumuLIN N SC SCH ×2 (09:49→21:34)
[2021-03-13] MEDS: DIFLUCAN 200 MG IV PREMIX* 200 MG/100 ML BAG IV SCH (09:50)
[2021-03-13] MEDS: NYSTATIN CREAM TOP SCH ×2 (09:51→21:36)
[2021-03-13] MEDS: NYSTATIN POWDER TOP SCH ×2 (09:51→21:36)
[2021-03-13] MEDS: VSL#3 PO SCH (09:52)
[2021-03-13] MEDS: PROTONIX INJ 40 MG VIAL IVP SCH ×2 (10:50→21:31)
--- NOTE | 2021-03-13 11:00 | RAD ---
HISTORYFEVER, DRY COUGHSTUDYCHEST x-ray, 1 VIEWCOMPARISONX-ray [id number] trachea is midline. The cardiac silhouette is unremarkable .New bilateral vague infiltrates are seen, right greater than left. Findings are concerning for possible COVID-19 pneumonia or other atypical pneumonia. No pneumothorax or pleural effusion is seen.No acute bony abnormality is seen.IMPRESSIONProbable bilateral pneumonia, a changed appearance since prior study. Findings suggest [id number] COVID-19 pneumonia or other atypical pneumonia.Electronically signed by: Darren Hensley (Mar 13, 2021 10:58:04)
[2021-03-13] MEDS: VISTARIL PO PRN (11:30)
[2021-03-13] MEDS ORDERED: ZITHROMAX INJ 500 MG VIAL 500 MG in NS 250 ML IV 250 ML IV SCH (11:39)
[2021-03-13] MEDS: BIAXIN TAB 500 MG PO SCH ×2 (13:02→21:31)
[2021-03-13] MEDS: AMOXIL CAP 500 MG PO SCH ×2 (13:02→21:32)
[2021-03-13] MEDS ORDERED: BENADRYL INJ 50 MG VIAL IVP PRN (15:09)
[2021-03-13 15:42] LABS: ABG BASE EXCESS -0.4 mmol/L (-2.0-2.0); ABG HCO3 22.3 mmol/L (22-26)
[2021-03-13] MEDS: CELEXA PO SCH (15:54)
--- NOTE | 2021-03-13 16:21 | VAS ---
HISTORYBilateral lower extremity edema.STUDYLOWER EXT VENOUS, BILATERALCOMPARISONNone.TECHNIQUEMultiple aguirre scale and color flow Doppler images of the deep venous system were obtained of the right and left lower extremity.FINDINGSThe deep venous system of the ri ght and left lower extremities were evaluated from the level of the common femoral vein through the popliteal vein. Normal color flow and augmentation can be observed. In addition, normal compression is seen throughout the deep venous system.IMPRESSIONNegative for bilateral lower extremity DVT.Elect ronically signed by: BRITNI CRAMER (Mar 13, 2021 16:18:37)
[2021-03-13] MEDS ORDERED: SALINE 3% 15 ML NEB TX ONE (16:40)
[2021-03-13] MEDS: DUONEB 0.5 MG/3 MG (3 mL) NEB SCH ×2 (16:50→20:59)
[2021-03-13] MEDS ORDERED: NovoLIN N or HumuLIN N SC ONE (20:44)
[2021-03-13] MEDS: SNACK - Diabetic Appropriate PO SCH (21:37)
[2021-03-14 05:04] LABS: BASOPHILS % (AUTO) 0.5 % (0.2-1.0); EOSINOPHILS # (AUTO) 0.2 x10^3/uL (0.0-0.2); EOSINOPHILS % (AUTO) 2.3 % (0.9-2.9); LYMPHOCYTES # (AUTO) 1.1 X10^3/uL (1.3-2.9); LYMPHOCYTES % (AUTO) 15.6 % (21.0-51.0); MEAN CORPUSCULAR HEMOGLOBIN 31.9 pg (27.0-34.0); MEAN CORPUSCULAR HGB CONC 34.4 g/dL (33.0-35.0); MEAN CORPUSCULAR VOLUME 92.6 fL (80.0-100.0); MEAN PLATELET VOLUME 9.6 fL (7.4-11.0); MONOCYTES # (AUTO) 0.5 x10^3/uL (0.3-0.8); MONOCYTES % (AUTO) 6.5 % (0.0-13.0); NEUTROPHILS # (AUTO) 5.5 x10^3/uL (2.2-4.8); NEUTROPHILS % (AUTO) 75.1 % (42.0-75.0); PLATELET COUNT 133 X10^3/uL (150.0-450.0); RED BLOOD COUNT 3.78 X10^6/uL (4.7-6.0); RED CELL DISTRIBUTION WIDTH 13.6 % (11.6-16.5); WHITE BLOOD COUNT 7.3 X10^3/uL (3.6-10.0)
[2021-03-14 05:06] LABS: BLOOD UREA NITROGEN 4 mg/dL (7-18); CALCIUM 7.7 mg/dL (8.5-10.1); CARBON DIOXIDE 22.4 mmol/L (21-32); CHLORIDE 101 mmol/L (98-107); SODIUM 134 mmol/L (136-145); eGFR NON BLACK RACES > 60 (>60)
--- NOTE | 2021-03-14 06:04 | RAD ---
HISTORYPNEUMONIASTUDYCHEST, 1 [id number]/28/2021FINDINGSThe trachea is midline. The cardiac silhouette is unremarkable. Increasing infiltrates are seen in the right mid and lower lung anton. No pleural effusion or pneumothorax.. The bony thorax is unremarkable.IMPRESSIONPatchy pneumonic infiltrate within the right mid and lower lung anton increased from previous 03/13/2021lectronically signed by: Champ Bates (Mar 14, 2021 06:03:04)
[2021-03-14] MEDS: NS 1000 ML 1,000 ML IV SCH ×3 (07:52→23:27)
[2021-03-14] MEDS: AMOXIL CAP 500 MG PO SCH ×2 (09:19→20:48)
[2021-03-14] MEDS: XOPENEX 1.25 MG/3 ML NEBULE NEB SCH ×4 (09:20→20:39)
[2021-03-14] MEDS: CELEXA PO SCH (09:21)
[2021-03-14] MEDS: BIAXIN TAB 500 MG PO SCH ×2 (09:21→20:48)
[2021-03-14] MEDS: DIFLUCAN 200 MG IV PREMIX* 200 MG/100 ML BAG IV SCH (09:22)
[2021-03-14] MEDS: CIPRO IV 400 MG PREMIX* 400 MG/200 ML IV.SOLN. IV SCH ×2 (09:22→20:47)
[2021-03-14] MEDS: PROTONIX INJ 40 MG VIAL IVP SCH ×2 (09:23→20:48)
[2021-03-14] MEDS: VSL#3 PO SCH (09:23)
[2021-03-14] MEDS: NovoLIN N or HumuLIN N SC SCH ×2 (09:23→20:47)
[2021-03-14] MEDS: NYSTATIN POWDER TOP SCH ×2 (09:23→20:50)
[2021-03-14] MEDS: NYSTATIN CREAM TOP SCH ×2 (09:23→20:50)
[2021-03-14] MEDS: VISTARIL PO PRN ×2 (10:13→23:27)
[2021-03-14 11:17] LABS: ALANINE AMINOTRANSFERASE 39 Units/L (12-78); ALBUMIN 2.2 g/dL (3.4-5.0); ALKALINE PHOSPHATASE 390 Units/L (46-116); ASPARTATE AMINO TRANSFERASE 31 Units/L (15-37); COR CA(FOR HYPOALB) 9.1 mg/dL (8.5-10.1); TOTAL PROTEIN 5.6 g/dL (6.4-8.2)
[2021-03-14] MEDS: ZOFRAN INJ 4 MG VIAL IVP PRN (15:01)
[2021-03-14] MEDS: HumuLIN R SC PRN (17:23)
[2021-03-14] MEDS ORDERED: NovoLIN N or HumuLIN N SC ONE (20:39)
[2021-03-14] MEDS: SNACK - Diabetic Appropriate PO SCH (20:49)
[2021-03-15] MEDS: ZOFRAN INJ 4 MG VIAL IVP PRN (00:50)
[2021-03-15 05:41] LABS: BASOPHILS % (AUTO) 0.4 % (0.2-1.0); EOSINOPHILS # (AUTO) 0.2 x10^3/uL (0.0-0.2); EOSINOPHILS % (AUTO) 2.3 % (0.9-2.9); HEMATOCRIT 33.3 % (42.0-54.0); HEMOGLOBIN 11.3 g/dL (13.5-18.0); LYMPHOCYTES # (AUTO) 1.1 X10^3/uL (1.3-2.9); LYMPHOCYTES % (AUTO) 14.7 % (21.0-51.0); MEAN CORPUSCULAR HEMOGLOBIN 32.2 pg (27.0-34.0); MEAN CORPUSCULAR HGB CONC 33.9 g/dL (33.0-35.0); MEAN CORPUSCULAR VOLUME 94.9 fL (80.0-100.0); MEAN PLATELET VOLUME 9.7 fL (7.4-11.0); MONOCYTES # (AUTO) 0.5 x10^3/uL (0.3-0.8); MONOCYTES % (AUTO) 6.9 % (0.0-13.0); NEUTROPHILS # (AUTO) 5.7 x10^3/uL (2.2-4.8); NEUTROPHILS % (AUTO) 75.7 % (42.0-75.0); PLATELET COUNT 148 X10^3/uL (150.0-450.0); RED BLOOD COUNT 3.51 X10^6/uL (4.7-6.0); RED CELL DISTRIBUTION WIDTH 14.2 % (11.6-16.5); WHITE BLOOD COUNT 7.5 X10^3/uL (3.6-10.0)
[2021-03-15 05:46] LABS: ALANINE AMINOTRANSFERASE 32 Units/L (12-78); ALBUMIN 2.2 g/dL (3.4-5.0); ALKALINE PHOSPHATASE 401 Units/L (46-116); ASPARTATE AMINO TRANSFERASE 28 Units/L (15-37); BLOOD UREA NITROGEN 2 mg/dL (7-18); CALCIUM 7.5 mg/dL (8.5-10.1); CARBON DIOXIDE 25.7 mmol/L (21-32); CHLORIDE 104 mmol/L (98-107); COR CA(FOR HYPOALB) 8.9 mg/dL (8.5-10.1); COR NA(FOR HYPERGLY) 141 mmol/L (136-145); CREATININE 0.61 mg/dL (0.70-1.30); FREE T4 (FREE THYROXINE) 0.99 ng/dL (0.76-1.46); LACTATE DEHYDROGENASE 152 Units/L (85-227); SODIUM 136 mmol/L (136-145); TOTAL PROTEIN 5.4 g/dL (6.4-8.2); TSH (3RD GENERATION) 1.159 uIU/mL (0.358-3.74); eGFR NON BLACK RACES > 60 (>60)
[2021-03-15 06:01] LABS: IRON 101 ug/dL (50-175)
[2021-03-15 06:25] LABS: ERYTHROCYTE SEDIMENTATION RATE 17 MM/HOUR (0-15)
[2021-03-15] MEDS: HumuLIN R SC PRN ×2 (06:43→11:39)
[2021-03-15] MEDS: CELEXA PO SCH (09:14)
[2021-03-15] MEDS: AMOXIL CAP 500 MG PO SCH (09:14)
[2021-03-15] MEDS: VSL#3 PO SCH (09:15)
[2021-03-15] MEDS: CIPRO IV 400 MG PREMIX* 400 MG/200 ML IV.SOLN. IV SCH (09:15)
[2021-03-15] MEDS: BIAXIN TAB 500 MG PO SCH (09:16)
[2021-03-15] MEDS: DIFLUCAN 200 MG IV PREMIX* 200 MG/100 ML BAG IV SCH (09:16)
[2021-03-15] MEDS: XOPENEX 1.25 MG/3 ML NEBULE NEB SCH ×2 (09:30→17:26)
[2021-03-15] MEDS: NovoLIN N or HumuLIN N SC SCH (09:38)
[2021-03-15] MEDS: PROTONIX INJ 40 MG VIAL IVP SCH (09:39)
[2021-03-15] MEDS: NYSTATIN CREAM TOP SCH (09:50)
[2021-03-15] MEDS: NYSTATIN POWDER TOP SCH (09:50)
--- NOTE | 2021-03-15 11:10 | RAD ---
HISTORYPNEUMONIA, COUGHSTUDYCHEST x-ray, 1 VIEWCOMPARISONX-ray 03/14/2021FINDINGSHeart is normal in size. Lung apices are partially excluded on the study. There is improvement of pneumonia in the right midlung. Persistent mild right middle lobe and right upper lobe infiltrates are seen, though. Very minimal infiltrates in the left lung cannot be excluded, similar to prior study. No pleural effusion is seen.IMPRESSIONImprovement of right-sided pneumonia. Possible persistent very minimal infiltrates in the left lung but this appearance could be artifactual. Continued x-ray follow up to document resolution is recommended.Electronically signed by: Darren Hensley (Mar 15, 2021 11:08:42)
[2021-03-15] MEDS: NS 1000 ML 1,000 ML IV SCH (11:59)
[2021-03-15 12:22] VITALS: BP 100/65
== END 2021-03-15 14:55 | disposition home or self-care (01) | DRG 638 ==
LOC: OBS 02:03 → ER 02:03 → OBS 08:51 → MED/SURG 03-12 15:21
PROVIDERS: ADMIT Internal Medicine; ATTEND Internal Medicine
DX: R78.81 Bacteremia; K29.00 Acute gastritis without bleeding; Z20.822 Contact with and (suspected) exposure to COVID-19; I25.10 Atherosclerotic heart disease of native coronary artery without angina pectoris; B37.89 Other sites of candidiasis; R62.7 Adult failure to thrive; N39.0 Urinary tract infection, site not specified; F12.10 Cannabis abuse, uncomplicated; E11.10 Type 2 diabetes mellitus with ketoacidosis without coma; B96.81 Helicobacter pylori [H. pylori] as the cause of diseases classified elsewhere; B95.61 Methicillin susceptible Staphylococcus aureus infection as the cause of diseases classified elsewhere; R33.8 Other retention of urine; I10 Essential (primary) hypertension; R60.0 Localized edema

== ENCOUNTER 2023-04-02 05:53 | Inpatient (IN) ==
--- NOTE | 2023-04-02 06:10 | DR.N/VMALE ---
HPI Time Seen Time Seen by Provider: 04/02/23 06:10 Complaints Chief Complaint Doctors Comments: Patient presents with tachycardia,weakness,imnfections at bilateral knees and Rt foot ( x 1 month).Patient states that he has been having vomiting.Patient denies: fever,hematmesis,hematochezia,headache,chest pain,abdl pain.Patient was d/c from [facility] on 03/08/2023 where he was treated for the infections at his knees and Rt foot. PMH PMH Past Medical History: Anxiety, Depression and Diabetes Past Surgical History: Yes Surgical History: No History Family History Family Medical History: Cancer, [place], Coronary Artery Disease and Hypertension Social History Do you use any recreational Drugs:: No ROS Review of Systems Constitutional: Weakness Eyes: No Symptoms Reported ENTM: No Symptoms Reported Respiratoy: No Symptoms Reported Cardiovascular: No Symptoms Reported Gastrointestinal/Abdominal: No Symptoms Reported Genitourinary: No Symptoms Reported Neurological: No Symptoms Reported Musculoskeletal: Joint Pain (Bilateral Knee joints and dorsal surface Rt foot and joints of toes of Rt foot) Integumentary: No Symptoms Reported and Other (Ulcerated lesions Bilateral knee joints:Rt ulcer is to the level of muscular tissue at Rt knee joint/Left ulcer is superficial,both have edema) Hematologic/Lymphatic: No Symptoms Reported Endocrine: No Symptoms Reported Psychiatric: No Symptoms Reported All Other Systems: Reviewed and Negative PE Vital Signs Vitals: Vital Signs Temperature 97.9 F Pulse Rate 116 Pulse Rate 115 Pulse Rate 109 Pulse Rate 107 Pulse Rate 111 Pulse Rate 117 Pulse Rate 124 Pulse Rate 123 Respiratory Rate 26 Respiratory Rate 23 Respiratory Rate 28 Respiratory Rate 27 Respiratory Rate 30 Respiratory Rate 28 Respiratory Rate 21 Respiratory Rate 21 Blood Pressure 120/65 O2 Sat by Pulse Oximetry 100 O2 Sat by Pulse Oximetry 100 O2 Sat by Pulse Oximetry 100 O2 Sat by Pulse Oximetry 100 O2 Sat by Pulse Oximetry 100 O2 Sat by Pulse Oximetry 100 O2 Sat by Pulse Oximetry 100 O2 Sat by Pulse Oximetry 100 General Limitations: No Limitations General Appearance: Alert and In No Apparent Distress Head Head Exam: Normal Inspection Eyes Eye exam: Normal Appearance ENT ENT Exam: Mucous Membranes Dry Neck Neck Exam: Normal Inspection Chest Chest Inspection: Normal Inspection Respiratory Respiratory Exam: Normal Lung Sounds Bilat Respiratory Exam: Bilateral: Clear to Auscultation Cardiovascular Cardiovascular Exam: Normal Rhythm and Tachycardia Abdominal Exam Abdominal Exam: Normal Inspection, Normal Bowel Sounds and Soft Rectal Rectal Exam: Deferred Exam: Male: Deferred Extremities Extremities Exam: Normal Inspection, Edema (Bilateral knee joints and Rt foot) and Joint Swelling (Ulcer at Rt knee joint extends to muscular layer/Left knee ulcer is superficial/ Rt foot has superficial ulcers dorsal surface and at the toes) Back Back Exam: Normal Inspection Neurologic Neurological Exam: Alert and Oriented X3 Psychiatric Psychiatric Exam: Normal Affect and Normal Mood Skin Skin Exam: Warm, Dry, Intact and Normal Color MDM Differential Diagnosis Differential Diagnosis: Considerations may Include:: Diabetes/DKA, Urinary Tract Infection and Other (osteomyelitis Bilateral knee joints) COURSE Treatment Treatment: 06:10 Examined patient and ordered labs and cefepime 2 g iv,NS 1L x 2 boluses iv,zofran 4mg iv,insulin 8U iv 06:56 BG still too high.Patient given regular insulin 5U 07:00 Serum glucose 901 and hc03 9.9.Patient is in DKA.Insulin drip initiated at 5 units/hr iv.HR was 124 and is currently 109/BP 120/65/ RR 27/ 100% RA 07:[address] Kramer who will admit patient to his service.Dr Kramer would like patient started on Zyvox 600mg iv Q12. 07:49 Patient admitted to ICU.Patient has been stable in the ED. ROR Labs Reviewed Laboratory Results Reviewed?: Yes 04/02/23 06:10 04/02/23 06:10 Laboratory: WBC 15.4 X10^3/uL (3.6-10.0) H 04/02/23 06:10 RBC 3.92 X10^6/uL (4.7-6.0) L 04/02/23 06:10 Hgb 11.2 g/dL (13.5-18.0) L 04/02/23 06:10 Hct 36.1 % (42.0-54.0) L 04/02/23 06:10 MCV 92.1 fL (80.0-100.0) 04/02/23 06:10 MCH 28.7 pg (27.0-34.0) 04/02/23 06:10 MCHC 31.1 g/dL (33.0-35.0) L 04/02/23 06:10 RDW 13.9 % (11.6-16.5) 04/02/23 06:10 Plt Count 427 X10^3/uL (150.0-450.0) 04/02/23 06:10 Plt Count Comment Adequate (ADEQUATE) 04/02/23 06:10 MPV 9.2 fL (7.4-11.0) 04/02/23 06:10 Neut % (Auto) 91.7 % (42.0-75.0) H 04/02/23 06:10 Lymph % (Auto) 4.6 % (21.0-51.0) L 04/02/23 06:10 [place] % (Auto) 3.5 % (0.0-13.0) 04/02/23 06:10 Eos % (Auto) 0.1 % (0.9-2.9) L 04/02/23 06:10 Baso % (Auto) 0.1 % (0.2-1.0) L 04/02/23 06:10 Neut # (Auto) 14.2 x10^3/uL (2.2-4.8) H 04/02/23 06:10 Lymph # (Auto) 0.7 X10^3/uL (1.3-2.9) L 04/02/23 06:10 [place] # (Auto) 0.5 x10^3/uL (0.3-0.8) 04/02/23 06:10 Eos # (Auto) 0.0 x10^3/uL (0.0-0.2) 04/02/23 06:10 Baso # (Auto) 0.0 X10^3/uL (0.0-0.1) 04/02/23 06:10 Absolute Nucleated RBC 0.1 /100WBC 04/02/23 06:10 Total Counted 100 04/02/23 06:10 Neutrophils % (Manual) 90 % (39-76) H 04/02/23 06:10 Lymphocytes % (Manual) 5 % (13-43) L 04/02/23 06:10 Monocytes % (Manual) 5 % (4-9) 04/02/23 06:10 Plt Morphology Comment Normal (NORMAL) 04/02/23 06:10 RBC Morphology Normal (NORMAL) 04/02/23 06:10 Sample Site Rrad 04/02/23 06:31 ABG pH 7.320 (7.35-7.45) L 04/02/23 06:31 ABG pCO2 18.0 mmHg (35.0-45.0) L* 04/02/23 06:31 ABG pO2 50.0 mmHg (80.0-100.0) L 04/02/23 06:31 ABG HCO3 9.3 mmol/L (22-26) L* 04/02/23 06:31 ABG O2 Saturation 81.0 % (90-100) L* 04/02/23 06:31 ABG Base Excess -14.5 mmol/L (-2.0-2.0) L 04/02/23 06:31 Clint Test Pos 04/02/23 06:31 A-a Gradient 77.0 mmHg 04/02/23 06:31 FiO2 21.0 04/02/23 06:31 Blood Gas Comments Emmie abg well-mtf 04/02/23 06:31 Sodium 128 mmol/L (136-145) L 04/02/23 06:10 Corrected Sodium 147 mmol/L (136-145) H 04/02/23 06:10 Potassium 4.6 mmol/L (3.5-5.1) 04/02/23 06:10 Chloride 83 mmol/L (98-107) L 04/02/23 06:10 Carbon Dioxide 9.9 mmol/L (21-32) L* 04/02/23 06:10 BUN 30 mg/dL (7-18) H 04/02/23 06:10 Creatinine 1.97 mg/dL (0.70-1.30) H 04/02/23 06:10 Est GFR (MDRD) Af Amer 53 (>60) L 04/02/23 06:10 Est GFR (MDRD) Non-Af 44 (>60) L 04/02/23 06:10 Glucose 901 mg/dL (65-99) H* 04/02/23 06:10 Lactic Acid 2.4 mmol/L (0.4-2.0) H 04/02/23 06:10 Calcium 8.6 mg/dL (8.5-10.1) 04/02/23 06:10 Corrected Calcium 9.3 mg/dL (8.5-10.1) 04/02/23 06:10 Total Bilirubin 0.50 mg/dL (0.2-1.0) 04/02/23 06:10 AST 10 Units/L (15-37) L 04/02/23 06:10 ALT 7 Units/L (12-78) L 04/02/23 06:10 Alkaline Phosphatase 118 Units/L (46-116) H 04/02/23 06:10 C-Reactive Protein 94.50 mg/L (0-3.0) H 04/02/23 06:10 Total Protein 7.9 g/dL (6.4-8.2) 04/02/23 06:10 Albumin 3.1 g/dL (3.4-5.0) L 04/02/23 06:10 Globulin 4.8 g/dL (2.5-4.5) H 04/02/23 06:10 Albumin/Globulin Ratio 0.6 Ratio (1.1-2.1) L 04/02/23 06:10 Acetone, Semi-Quant Large (NEGATIVE) H 04/02/23 06:10 Opioid Opioid Risk Tool Age (Roberto box if 16-45): Yes History of Preadolescent Sexual Abuse: No Total: 1 Total Score Risk Category: Low Risk Copyright: Bonilla SKY predicting aberrant behaviors Discharge Plan Diagnosis Discharge Problem: Diabetic ketoacidosis, Diabetic knee ulcer Discharge Plan Patient Disposition: 09 ADMITTED INPATIENT Condition: Stable Prescriptions: No Action trazodone 50 mg tablet 100 mg PO QPM PRN ondansetron 8 mg tablet,disintegrating 8 mg PO PRN PRN amoxicillin-pot clavulanate 875-125 mg tablet 1 tab PO BID buspirone 15 mg tablet 30 mg PO BID insulin glargine [Basaglar KwikPen U-100 Insulin] 100 unit/mL (3 mL) insulin pen 1 ea SUBCUT PRN PRN Patient Comments: [NO ORIGINAL SIG] Vraylar 1.5 mg capsule 1.5 mg PO QDAY tramadol 50 mg tablet 50 mg PO Q6H MDD 4 PRNQty: 20 0RF Health Concerns: Post Hospitalization: new medications and changes needed to prevent readmission or further decline. Pt educated and given instructions on all concerns. Plan of Treatment: Continue with present treatment and follow up plan. Pt is to keep follow up appointment as instructed and take medications as ordered. Orders to Discharge Patient Discharge Orders: Transfer (Routine); Ordered 04/02/23 Ordered By: Carlota Mayers Follow ups/Referrals Follow ups/Referrals: KINGSLEY KRAMER [Primary Care Provider] - 3 days Instructions Stand Alone Forms: Post Hospital Follow Up Care
[2023-04-02] MEDS ORDERED: NS 1,000 ML IV 1,000 ML ONE ×5 (06:12→11:20)
[2023-04-02] MEDS ORDERED: ZOFRAN INJ 4 MG VIAL ONE ×2 (06:12→14:28)
[2023-04-02] MEDS ORDERED: NovoLIN R (or HumuLIN R) ONE ×5 (06:15→07:02)
[2023-04-02] MEDS ORDERED: NS 1,000 ML IV 1,000 ML IV ONE ×3 (06:18→06:19)
[2023-04-02] MEDS ORDERED: ZOFRAN INJ 4 MG VIAL IVP ONE ×2 (06:18→06:19)
[2023-04-02] MEDS ORDERED: NovoLIN R (or HumuLIN R) IV ONE ×3 (06:19→06:56)
[2023-04-02] MEDS ORDERED: MAXIPIME VIAL 2 GRAMS 2 G in NS 100 ML IV 100 ML IV SCH (06:23)
[2023-04-02 06:37] LABS: ABG BASE EXCESS -14.5 mmol/L (-2.0-2.0)
[2023-04-02 06:40] LABS: BASOPHILS % (AUTO) 0.1 % (0.2-1.0); EOSINOPHILS % (AUTO) 0.1 % (0.9-2.9); HEMATOCRIT 36.1 % (42.0-54.0); HEMOGLOBIN 11.2 g/dL (13.5-18.0); LYMPHOCYTES # (AUTO) 0.7 X10^3/uL (1.3-2.9); LYMPHOCYTES % (AUTO) 4.6 % (21.0-51.0); MEAN CORPUSCULAR HEMOGLOBIN 28.7 pg (27.0-34.0); MEAN CORPUSCULAR HGB CONC 31.1 g/dL (33.0-35.0); MEAN CORPUSCULAR VOLUME 92.1 fL (80.0-100.0); MEAN PLATELET VOLUME 9.2 fL (7.4-11.0); MONOCYTES # (AUTO) 0.5 x10^3/uL (0.3-0.8); MONOCYTES % (AUTO) 3.5 % (0.0-13.0); NEUTROPHILS # (AUTO) 14.2 x10^3/uL (2.2-4.8); NEUTROPHILS % (AUTO) 91.7 % (42.0-75.0); PLATELET COUNT 427 X10^3/uL (150.0-450.0); RED BLOOD COUNT 3.92 X10^6/uL (4.7-6.0); RED CELL DISTRIBUTION WIDTH 13.9 % (11.6-16.5); WHITE BLOOD COUNT 15.4 X10^3/uL (3.6-10.0)
[2023-04-02 06:44] LABS: ABG ALLEN TEST POS; ABG HCO3 9.3 mmol/L (22-26)
[2023-04-02 06:48] LABS: ALANINE AMINOTRANSFERASE 7 Units/L (12-78); ALBUMIN 3.1 g/dL (3.4-5.0); ALKALINE PHOSPHATASE 118 Units/L (46-116); ASPARTATE AMINO TRANSFERASE 10 Units/L (15-37); BLOOD UREA NITROGEN 30 mg/dL (7-18); CALCIUM 8.6 mg/dL (8.5-10.1); CHLORIDE 83 mmol/L (98-107); COR CA(FOR HYPOALB) 9.3 mg/dL (8.5-10.1); CREATININE 1.97 mg/dL (0.70-1.30); POTASSIUM 4.6 mmol/L (3.5-5.1); SODIUM 128 mmol/L (136-145); TOTAL PROTEIN 7.9 g/dL (6.4-8.2); eGFR NON BLACK RACES 44 (>60)
[2023-04-02 06:56] LABS: PLATELET MORPHOLOGY COMMENT NORMAL (NORMAL)
[2023-04-02 06:57] LABS: SERUM ACETONE LARGE (NEGATIVE)
[2023-04-02 07:01] LABS: CARBON DIOXIDE 9.9 mmol/L (21-32)
[2023-04-02 07:02] LABS: COR NA(FOR HYPERGLY) 147 mmol/L (136-145); GLUCOSE 901 mg/dL (65-99)
[2023-04-02] MEDS ORDERED: MYXREDLIN 100 UNIT/100 ML BAG 100 UNIT/100 ML PLAST..BAG IV PRN (07:06)
[2023-04-02] MEDS ORDERED: MYXREDLIN 100 UNIT/100 ML BAG 100 UNIT/100 ML PLAST..BAG IV ONE (07:11)
[2023-04-02 07:18] LABS: LACTIC ACID 2.4 mmol/L (0.4-2.0)
[2023-04-02] MEDS ORDERED: NS 100 ML IV 100 ML ONE (07:18)
[2023-04-02] MEDS ORDERED: MAXIPIME VIAL 1 GRAM ONE (07:18)
[2023-04-02 08:29] VITALS: BMI 21.2
[2023-04-02] MEDS ORDERED: CONSULT PHARMACY - POTASSIUM & MAGNESIUM XX SCH (08:35)
[2023-04-02] MEDS ORDERED: DESYREL PO PRN (08:35)
[2023-04-02] MEDS ORDERED: ZOFRAN TAB 4 MG PO PRN (08:35)
[2023-04-02] MEDS ORDERED: PATIENT'S HOME MEDICATION (Cariprazine [Vraylar] 1.5 mg capsule) PO SCH (09:00)
[2023-04-02] MEDS ORDERED: ZYVOX 600MG IV 600 MG/300 ML BAG IV SCH (09:00)
[2023-04-02] MEDS: MAXIPIME VIAL 2 GRAMS 2 G in NS 100 ML IV 100 ML IV SCH ×2 (09:34→21:04)
[2023-04-02] MEDS ORDERED: PHARMACY CONSULT - VANCOMYCIN XX SCH (10:00)
[2023-04-02] MEDS: NS 1,000 ML IV 1,000 ML IV SCH ×2 (11:20→20:01)
[2023-04-02] MEDS: VANCOMYCIN IV *PREMIX 1 G/200 ML BAG 1 G/200 ML PIGGYBACK IV SCH (12:06)
[2023-04-02 12:12] LABS: BLOOD UREA NITROGEN 24 mg/dL (7-18); CALCIUM 7.1 mg/dL (8.5-10.1); CARBON DIOXIDE 24.7 mmol/L (21-32); CHLORIDE 100 mmol/L (98-107); COR NA(FOR HYPERGLY) 141 mmol/L (136-145); CREATININE 1.34 mg/dL (0.70-1.30); GLUCOSE 313 mg/dL (65-99); POTASSIUM 3.4 mmol/L (3.5-5.1); SODIUM 136 mmol/L (136-145); eGFR NON BLACK RACES > 60 (>60)
[2023-04-02] MEDS ORDERED: CHLORASEPTIC SPRAY MT PRN (13:28)
[2023-04-02] MEDS ORDERED: MAGIC MOUTHWASH (Orig. Formula) MT PRN (13:28)
[2023-04-02] MEDS ORDERED: CHLORASEPTIC SPRAY MT ONE (13:31)
[2023-04-02] MEDS: ZOFRAN INJ 4 MG VIAL IVP PRN ×2 (14:33→21:52)
[2023-04-02 15:55] LABS: BLOOD UREA NITROGEN 20 mg/dL (7-18); CALCIUM 7.3 mg/dL (8.5-10.1); CARBON DIOXIDE 27.8 mmol/L (21-32); CHLORIDE 101 mmol/L (98-107); CREATININE 1.13 mg/dL (0.70-1.30); GLUCOSE 92 mg/dL (65-99); POTASSIUM 3.3 mmol/L (3.5-5.1); SODIUM 138 mmol/L (136-145); eGFR NON BLACK RACES > 60 (>60)
[2023-04-02] MEDS ORDERED: PHENERGAN INJ 25 MG IM ONE ×2 (17:30→17:31)
[2023-04-02] MEDS ORDERED: PROTONIX INJ 40 MG VIAL ONE (17:31)
[2023-04-02] MEDS: PROTONIX INJ 40 MG VIAL IVP SCH ×2 (17:42→21:25)
--- NOTE | 2023-04-02 18:05 | DR.H&P ---
H&P - History & Physical for Day of: H&P Date: 04/02/23 - Chief Complaint Chief Complaint: N/V, WEAKNESS, ELEVATED BLOOD SUGARS, INFECTED WOUNDS - History of Present Illness History of Present Illness: Patient is a 27 WM, ER admission after he presents with tachycardia,weakness,imnfections at bilateral knees and Rt foot ( x 1 month).Patient states that he has been having vomiting.Patient denies: fever,hematmesis,hematochezia,headache,chest pain,abdl pain.Patient was d/c from [facility] on 03/08/2023 where he was treated for the infections at his knees and Rt foot. Pt has PMH of uncontrolled type I DM. Pt admitted to ICU for DKA and Sepsis. - Past Medical History Past Medical History: Diabetes, Depression, Anxiety - Past Surgical History Additional Surgical History: L BKA - Family History Family Medical History: Cancer, Coronary Artery Disease - Social History Does patient currently use any type of tobacco product: Yes Have you used tobacco products in the last 12 months: Yes Type of Tobacco Use: Cigarettes Does any household member use tobacco: No Alcohol Use: None Drug Use: Marijuana - Review of Systems Constitutional: Weakness Eyes: No Symptoms Reported ENT: No Symptoms Reported Respiratory: Shortness of Breath Cardiovascular: Palpitations Gastrointestinal: Nausea, Vomiting Genitourinary: Frequency Musculoskeletal: Leg Pain Skin: Wound Neurological: Weakness - Physical Exam Vital Signs: Vital Signs Temperature 98.3 F Temperature 98.3 F Pulse Rate 96 Pulse Rate 96 Pulse Rate 96 Pulse Rate 100 Pulse Rate 101 Pulse Rate 99 Pulse Rate 104 Pulse Rate 101 Respiratory Rate 12 Respiratory Rate 17 Respiratory Rate 16 Respiratory Rate 21 Respiratory Rate 20 Respiratory Rate 22 Respiratory Rate 15 Respiratory Rate 19 Blood Pressure 119/69 Blood Pressure 117/68 Blood Pressure 119/72 Blood Pressure 107/60 Blood Pressure 118/72 Blood Pressure 140/82 Blood Pressure 107/75 Blood Pressure 115/67 O2 Sat by Pulse Oximetry 98 O2 Sat by Pulse Oximetry 99 O2 Sat by Pulse Oximetry 95 O2 Sat by Pulse Oximetry 96 O2 Sat by Pulse Oximetry 98 O2 Sat by Pulse Oximetry 97 O2 Sat by Pulse Oximetry 99 O2 Sat by Pulse Oximetry 99 Oriented: Normal Eyes: Normal Ear: Normal Nose: Normal Throat: Normal Respiratory: RLL Diminished, LLL Diminished Cardiovascular: Tachycardia : Normal Auscultation: Bowel Sounds: Normal Palpation: Normal Tenderness: Normal Skin: Decreased Turgur, Red, Tender, Wound (Ulcerated lesions Bilateral knee joints:Rt ulcer is to the level of muscular tissue at Rt knee joint/Left ulcer is superficial,both have edema)) Musculoskeletal: Right, Left, Knee, Swelling, Tender, Deformity (LEFT BKA), Sensory Deficit Mood Description: Anxious Affect: Anxious Speech Pattern: Clear, Appropriate - Assessment/Plan (1) Diabetic ketoacidosis Status: Acute Plan: ADMIT ICU, AGGRESSIVE IV HYDRATION WITH INSULIN DRIP PER PROTOCOL WITH BS HOURLY PER PROTOCOL. ABG ON ADMISSION, BLOOD AND WOUND CULTURES OBTAINED ON ADMISSION, IV ATBX THERAPY. CONFIRM HOME MEDICATION. SERIAL BMP Q 4HRS UNTIL CO2 WNL. ACETONE ON ADMISSION AND REPEAT Q AM. CARDIAC MONITORING, PRN SUP PLEMENTAL O2. STRICT I&OS (2) Sepsis Status: Acute (3) Cellulitis of knee, left Status: Acute (4) Cellulitis of knee, right Status: Acute (5) Ulcer of knee due to secondary diabetes mellitus Status: Acute (6) Acute renal insufficiency Status: Acute - Allergies Allergies/Adverse Reactions: Allergies Allergy/AdvReac Type Severity Reaction Status Date / Time lorazepam [From Ativan] Allergy Verified 04/02/23 06:19 metoclopramide [From Reglan] Allergy Verified 04/02/23 06:19 oxycodone Allergy Verified 04/02/23 06:19 iodine AdvReac Severe ANAPHALEXIS Verified 04/02/23 06:19 REACTION - Medications Home Medications: Home Medications Medication Instructions Recorded Confirmed buspirone 15 mg tablet 30 mg PO BID 04/02/23 04/02/23 cariprazine 1.5 mg capsule 1.5 mg PO QDAY 04/02/23 04/02/23 (Vraylar) gabapentin 100 mg capsule 200 mg PO BID 04/02/23 04/02/23 insulin glargine 100 unit/mL (3 See Rx Instructions .Route .COMPLEX 04/02/23 04/02/23 mL) subcutaneous pen (Basaglar KwikPen U-100 Insulin) sertraline 100 mg tablet 100 mg PO QDAY 04/02/23 04/02/23 trazodone 50 mg tablet 100 mg PO QPM PRN 04/02/23 04/02/23
[2023-04-02 18:31] LABS: ABG BASE EXCESS -0.7 mmol/L (-2.0-2.0); ABG HCO3 23.4 mmol/L (22-26)
[2023-04-02 18:32] LABS: ABG ALLEN TEST POS
[2023-04-02] MEDS ORDERED: SNACK - Diabetic Appropriate PO SCH ×2 (20:00)
[2023-04-02 20:04] LABS: BLOOD UREA NITROGEN 20 mg/dL (7-18); CALCIUM 7.5 mg/dL (8.5-10.1); CARBON DIOXIDE 25.5 mmol/L (21-32); CHLORIDE 102 mmol/L (98-107); COR NA(FOR HYPERGLY) 140 mmol/L (136-145); CREATININE 1.04 mg/dL (0.70-1.30); GLUCOSE 176 mg/dL (65-99); POTASSIUM 3.9 mmol/L (3.5-5.1); SODIUM 138 mmol/L (136-145); eGFR NON BLACK RACES > 60 (>60)
[2023-04-02] MEDS: BUSPAR PO SCH (21:04)
[2023-04-02 23:52] LABS: BLOOD UREA NITROGEN 17 mg/dL (7-18); CALCIUM 7.9 mg/dL (8.5-10.1); CARBON DIOXIDE 25.9 mmol/L (21-32); CHLORIDE 101 mmol/L (98-107); COR NA(FOR HYPERGLY) 139 mmol/L (136-145); CREATININE 1.01 mg/dL (0.70-1.30); GLUCOSE 139 mg/dL (65-99); POTASSIUM 3.3 mmol/L (3.5-5.1); SODIUM 138 mmol/L (136-145); eGFR NON BLACK RACES > 60 (>60)
[2023-04-03] MEDS: PHENERGAN INJ 25 MG IM PRN ×2 (00:08→11:43)
[2023-04-03] MEDS: NS 1,000 ML IV 1,000 ML IV SCH ×4 (03:56→21:07)
[2023-04-03 05:50] LABS: LACTIC ACID 0.6 mmol/L (0.4-2.0)
[2023-04-03 05:51] LABS: ALANINE AMINOTRANSFERASE < 6 Units/L (12-78); ALBUMIN 2.2 g/dL (3.4-5.0); ALKALINE PHOSPHATASE 82 Units/L (46-116); ASPARTATE AMINO TRANSFERASE 12 Units/L (15-37); BLOOD UREA NITROGEN 15 mg/dL (7-18); CALCIUM 7.7 mg/dL (8.5-10.1); CARBON DIOXIDE 24.8 mmol/L (21-32); CHLORIDE 102 mmol/L (98-107); COR CA(FOR HYPOALB) 9.1 mg/dL (8.5-10.1); COR NA(FOR HYPERGLY) 140 mmol/L (136-145); CREATININE 0.85 mg/dL (0.70-1.30); GLUCOSE 156 mg/dL (65-99); POTASSIUM 3.6 mmol/L (3.5-5.1); SODIUM 139 mmol/L (136-145); TOTAL PROTEIN 6.2 g/dL (6.4-8.2); eGFR NON BLACK RACES > 60 (>60)
[2023-04-03 05:53] LABS: BASOPHILS % (AUTO) 0.2 % (0.2-1.0); EOSINOPHILS % (AUTO) 0.1 % (0.9-2.9); HEMATOCRIT 29.1 % (42.0-54.0); LYMPHOCYTES # (AUTO) 1.6 X10^3/uL (1.3-2.9); LYMPHOCYTES % (AUTO) 9.6 % (21.0-51.0); MEAN CORPUSCULAR HGB CONC 34.3 g/dL (33.0-35.0); MEAN CORPUSCULAR VOLUME 84.5 fL (80.0-100.0); MEAN PLATELET VOLUME 8.1 fL (7.4-11.0); MONOCYTES # (AUTO) 0.7 x10^3/uL (0.3-0.8); MONOCYTES % (AUTO) 4.3 % (0.0-13.0); NEUTROPHILS # (AUTO) 14.1 x10^3/uL (2.2-4.8); NEUTROPHILS % (AUTO) 85.8 % (42.0-75.0); PLATELET COUNT 409 X10^3/uL (150.0-450.0); RED BLOOD COUNT 3.44 X10^6/uL (4.7-6.0); RED CELL DISTRIBUTION WIDTH 13.4 % (11.6-16.5); WHITE BLOOD COUNT 16.4 X10^3/uL (3.6-10.0)
[2023-04-03] MEDS ORDERED: CONSULT PHARMACY - POTASSIUM & MAGNESIUM XX SCH (06:00)
--- NOTE | 2023-04-03 08:10 | CT ---
HISTORYRIGHT KNEE, DKA, HX SEPTIC JOINTSTUDYCT right knee without IV contrastCOMPARISONNoneTECHNIQUEMultiple axial images of the right knee are obtained without the administration of IV contrast. Dose reduction techniques including Automated Exposure Control (AEC) and adjustment of mA and kV were utilized.FINDINGSThere is prominent soft tissue edema in the subcutaneous soft tissues of the prepatellar and infrapatellar region. This may be cellulitis. Only a small joint effusion is seen. No bone destruction is seen. Erosions or joint space narrowing are seen.2 benign bone islands are seen. Mild serpiginous increased density is seen in the metaphyseal region of the medial aspect of the proximal tibia. Appearance could be from stress fracture but may not be acute. Depression of the medial tibial plateau is seen.IMPRESSIONProminent subcutaneous edema could be cellulitis. No suggestion of an abscess is seen.Only small joint effusion is seen without bone destruction. Septic arthritis is thought to be unlikely.Possible changes of stress fracture are seen in the medial tibial metaphyseal region but this finding may not be acute.Electronically signed by: Darren Hensley (Apr 03, 2023 08:08:51)
[2023-04-03] MEDS: VANCOMYCIN IV *PREMIX 1 G/200 ML BAG 1 G/200 ML PIGGYBACK IV SCH (08:14)
[2023-04-03] MEDS: PROTONIX INJ 40 MG VIAL IVP SCH ×2 (08:14→21:07)
[2023-04-03] MEDS: BUSPAR PO SCH ×2 (08:15→21:07)
[2023-04-03] MEDS ORDERED: K-DUR TAB 20 MEQ PO SCH (09:00)
[2023-04-03] MEDS: MAXIPIME VIAL 2 GRAMS 2 G in NS 100 ML IV 100 ML IV SCH ×2 (09:22→21:07)
[2023-04-03] MEDS: ZOFRAN INJ 4 MG VIAL IVP PRN ×3 (10:17→21:59)
[2023-04-03] MEDS: NovoLIN R (or HumuLIN R) SUBCUT PRN ×2 (16:22→21:12)
[2023-04-03] MEDS: SNACK - Diabetic Appropriate PO SCH (21:14)
[2023-04-04] MEDS: PHENERGAN INJ 25 MG IM PRN ×4 (01:06→21:53)
[2023-04-04] MEDS: NS 1,000 ML IV 1,000 ML IV SCH ×2 (03:00→11:30)
[2023-04-04 05:32] LABS: BASOPHILS % (AUTO) 0.4 % (0.2-1.0); EOSINOPHILS % (AUTO) 0.5 % (0.9-2.9); HEMATOCRIT 30.9 % (42.0-54.0); HEMOGLOBIN 10.4 g/dL (13.5-18.0); LYMPHOCYTES # (AUTO) 1.8 X10^3/uL (1.3-2.9); LYMPHOCYTES % (AUTO) 18.4 % (21.0-51.0); MEAN CORPUSCULAR HGB CONC 33.7 g/dL (33.0-35.0); MEAN PLATELET VOLUME 8.2 fL (7.4-11.0); MONOCYTES # (AUTO) 0.6 x10^3/uL (0.3-0.8); MONOCYTES % (AUTO) 5.9 % (0.0-13.0); NEUTROPHILS # (AUTO) 7.2 x10^3/uL (2.2-4.8); NEUTROPHILS % (AUTO) 74.8 % (42.0-75.0); PLATELET COUNT 412 X10^3/uL (150.0-450.0); RED CELL DISTRIBUTION WIDTH 13.2 % (11.6-16.5); WHITE BLOOD COUNT 9.7 X10^3/uL (3.6-10.0)
[2023-04-04 05:47] LABS: ALANINE AMINOTRANSFERASE < 6 Units/L (12-78); ALBUMIN 2.1 g/dL (3.4-5.0); ALKALINE PHOSPHATASE 81 Units/L (46-116); ASPARTATE AMINO TRANSFERASE 16 Units/L (15-37); BLOOD UREA NITROGEN 9 mg/dL (7-18); CALCIUM 7.7 mg/dL (8.5-10.1); CARBON DIOXIDE 18.6 mmol/L (21-32); CHLORIDE 98 mmol/L (98-107); COR CA(FOR HYPOALB) 9.2 mg/dL (8.5-10.1); COR NA(FOR HYPERGLY) 140 mmol/L (136-145); CREATININE 0.83 mg/dL (0.70-1.30); GLUCOSE 332 mg/dL (65-99); POTASSIUM 3.4 mmol/L (3.5-5.1); SODIUM 134 mmol/L (136-145); TOTAL PROTEIN 5.9 g/dL (6.4-8.2); eGFR NON BLACK RACES > 60 (>60)
[2023-04-04] MEDS: ZOFRAN INJ 4 MG VIAL IVP PRN ×3 (05:49→19:20)
[2023-04-04 05:52] LABS: MAGNESIUM 1.7 mg/dL (2.0-2.9); SERUM ACETONE SMALL (NEGATIVE)
[2023-04-04] MEDS: NovoLIN R (or HumuLIN R) SUBCUT PRN ×4 (06:16→20:51)
[2023-04-04] MEDS ORDERED: CONSULT PHARMACY - POTASSIUM & MAGNESIUM XX SCH (07:00)
[2023-04-04] MEDS: MAG-OX TAB PO SCH ×2 (08:44→10:35)
[2023-04-04] MEDS: VANCOMYCIN IV *PREMIX 1 G/200 ML BAG 1 G/200 ML PIGGYBACK IV SCH (08:44)
[2023-04-04] MEDS: PROTONIX INJ 40 MG VIAL IVP SCH ×2 (08:44→20:48)
[2023-04-04] MEDS: BUSPAR PO SCH ×2 (08:44→20:49)
[2023-04-04] MEDS: MAXIPIME VIAL 2 GRAMS 2 G in NS 100 ML IV 100 ML IV SCH ×2 (08:55→20:51)
[2023-04-04] MEDS ORDERED: K-DUR TAB 20 MEQ PO ONE (09:00)
[2023-04-04] MEDS ORDERED: LANTUS SC SCH ×3 (10:00→21:00)
--- NOTE | 2023-04-04 12:08 | PCM.PROG ---
Progress Note Progress Note for Day of Date of Exam: 04/04/23 Subjective Subjective: Pt is a 27 year old male admitted for diabetic ketoacidosis and cellulitis of knees. This morning he reports some improvement in his symptoms. He still reports feeling nauseous. Labs: Wbc 9.7, Hgb 10.4, Plt 412, Na 134, K 3.4, Creatinine 0.83, Glucose 332. Pt is currently receiving IVF NS@150ml/h, antibiotics: Cefepime and Vancomycin, and is on clear liquid diet. Will restart home Basaglar 15 units in the AM and 30 units at night along with sliding scale insulin. Otherwise, continue with current treatment plan. Continue to monitor and follow up labs. Past Medical Family Social History Allergies: Allergies lorazepam [From Ativan] Allergy (Verified 04/02/23 06:19) metoclopramide [From Reglan] Allergy (Verified 04/02/23 06:19) oxycodone Allergy (Verified 04/02/23 06:19) iodine Adverse Reaction (Severe, Verified 04/02/23 06:19) ANAPHALEXIS REACTION Review of Systems ROS changes noted: see HPI Vital Signs and I&O's Vital Signs: Vital Signs Temperature 98.9 F Temperature 98.1 F Pulse Rate 97 Pulse Rate 97 Pulse Rate 94 Pulse Rate 94 Pulse Rate 95 Pulse Rate 95 Pulse Rate 97 Pulse Rate 91 Pulse Rate 97 Pulse Rate 84 Pulse Rate 103 Pulse Rate 81 Pulse Rate 79 Pulse Rate 81 Pulse Rate 91 Pulse Rate 91 Pulse Rate 92 Pulse Rate 103 Pulse Rate 92 Pulse Rate 93 Pulse Rate 94 Pulse Rate 102 Pulse Rate 94 Pulse Rate 108 Pulse Rate 114 Pulse Rate 133 Pulse Rate 81 Pulse Rate 85 Pulse Rate 81 Pulse Rate 80 Pulse Rate 80 Pulse Rate 81 Pulse Rate 78 Pulse Rate 80 Respiratory Rate 20 Respiratory Rate 29 Respiratory Rate 49 Respiratory Rate 48 Respiratory Rate 72 Respiratory Rate 36 Respiratory Rate 31 Respiratory Rate 25 Respiratory Rate 18 Respiratory Rate 34 Respiratory Rate 37 Respiratory Rate 23 Respiratory Rate 24 Respiratory Rate 15 Respiratory Rate 23 Respiratory Rate 32 Respiratory Rate 28 Respiratory Rate 105 Respiratory Rate 47 Respiratory Rate 51 Respiratory Rate 41 Respiratory Rate 119 Respiratory Rate 22 Respiratory Rate 22 Respiratory Rate 10 Respiratory Rate 18 Respiratory Rate 18 Respiratory Rate 18 Respiratory Rate 13 Respiratory Rate 17 Respiratory Rate 17 Respiratory Rate 13 Respiratory Rate 18 Blood Pressure 126/76 Blood Pressure 135/77 Blood Pressure 138/85 Blood Pressure 118/65 Blood Pressure 122/80 Blood Pressure 154/90 Blood Pressure 154/90 Blood Pressure 134/82 Blood Pressure 134/82 Blood Pressure 120/68 Blood Pressure 120/68 O2 Sat by Pulse Oximetry 100 O2 Sat by Pulse Oximetry 100 O2 Sat by Pulse Oximetry 100 O2 Sat by Pulse Oximetry 100 O2 Sat by Pulse Oximetry 100 O2 Sat by Pulse Oximetry 100 O2 Sat by Pulse Oximetry 100 O2 Sat by Pulse Oximetry 100 O2 Sat by Pulse Oximetry 100 O2 Sat by Pulse Oximetry 98 O2 Sat by Pulse Oximetry 100 O2 Sat by Pulse Oximetry 100 O2 Sat by Pulse Oximetry 100 O2 Sat by Pulse Oximetry 100 O2 Sat by Pulse Oximetry 100 O2 Sat by Pulse Oximetry 100 O2 Sat by Pulse Oximetry 100 O2 Sat by Pulse Oximetry 100 O2 Sat by Pulse Oximetry 100 O2 Sat by Pulse Oximetry 100 O2 Sat by Pulse Oximetry 100 O2 Sat by Pulse Oximetry 100 O2 Sat by Pulse Oximetry 100 O2 Sat by Pulse Oximetry 100 O2 Sat by Pulse Oximetry 100 O2 Sat by Pulse Oximetry 100 O2 Sat by Pulse Oximetry 100 O2 Sat by Pulse Oximetry 100 O2 Sat by Pulse Oximetry 100 O2 Sat by Pulse Oximetry 100 O2 Sat by Pulse Oximetry 100 O2 Sat by Pulse Oximetry 100 O2 Sat by Pulse Oximetry 100 O2 Sat by Pulse Oximetry 100 Intake and Output: Intake & Output 04/01/23 04/02/23 04/03/23 04/04/23 23:59 23:59 23:59 23:59 Intake Total 7308 / 7308 3900 / 3900 1214 / 1214 Output Total 1225 / 1225 1050 / 1050 1200 / 1200 Balance 6083 / 6083 2850 / 2850 Physical Exam Oriented: Normal Eyes: Normal Ear: Normal Nose: Normal Throat: Normal Respiratory: Normal Cardiovascular: Normal : Normal Auscultation: Bowel Sounds: Normal Tenderness: Normal Skin: Decreased Turgur, Red, Tender and Wound (Ulcerated lesions Bilateral knee joints:Rt ulcer is to the level of muscular tissue at Rt knee joint/Left ulcer is superficial,both have edema)) Musculoskeletal: Right, Left, Knee, Swelling, Tender, Deformity (LEFT BKA) and Sensory Deficit Mood Description: Anxious Affect: Anxious Speech Pattern: Clear and Appropriate Laboratory and Diagnostics 04/04/23 05:00 04/04/23 05:00 Labs: 04/02/23 07:27 Toe - Right Second Wound Gram Stain - Final 04/02/23 07:27 Toe - Right Second Wound Culture - Preliminary Staphylococcus Aureus 04/02/23 07:27 Foot - Right Wound Gram Stain - Final 04/02/23 07:27 Foot - Right Wound Culture - Preliminary Methicillin Resis Staph Aureus 04/02/23 07:27 Knee - Left Wound Gram Stain - Final 04/02/23 07:27 Knee - Left Wound Culture - Preliminary Staphylococcus Aureus 04/02/23 07:27 Knee - Right Wound Gram Stain - Final 04/02/23 07:27 Knee - Right Wound Culture - Preliminary Staphylococcus Aureus 04/02/23 06:50 Blood Blood Culture - Preliminary 04/02/23 06:43 Blood Blood Culture - Preliminary Laboratory WBC 9.7 X10^3/uL (3.6-10.0) 04/04/23 05:00 RBC 3.60 X10^6/uL (4.7-6.0) L 04/04/23 05:00 Hgb 10.4 g/dL (13.5-18.0) L 04/04/23 05:00 Hct 30.9 % (42.0-54.0) L 04/04/23 05:00 MCV 86.0 fL (80.0-100.0) 04/04/23 05:00 MCH 29.0 pg (27.0-34.0) 04/04/23 05:00 MCHC 33.7 g/dL (33.0-35.0) 04/04/23 05:00 RDW 13.2 % (11.6-16.5) 04/04/23 05:00 Plt Count 412 X10^3/uL (150.0-450.0) 04/04/23 05:00 Plt Count Comment Adequate (ADEQUATE) 04/02/23 06:10 MPV 8.2 fL (7.4-11.0) 04/04/23 05:00 Neut % (Auto) 74.8 % (42.0-75.0) 04/04/23 05:00 Lymph % (Auto) 18.4 % (21.0-51.0) L 04/04/23 05:00 [place] % (Auto) 5.9 % (0.0-13.0) 04/04/23 05:00 Eos % (Auto) 0.5 % (0.9-2.9) L 04/04/23 05:00 Baso % (Auto) 0.4 % (0.2-1.0) 04/04/23 05:00 Neut # (Auto) 7.2 x10^3/uL (2.2-4.8) H 04/04/23 05:00 Lymph # (Auto) 1.8 X10^3/uL (1.3-2.9) 04/04/23 05:00 [place] # (Auto) 0.6 x10^3/uL (0.3-0.8) 04/04/23 05:00 Eos # (Auto) 0.0 x10^3/uL (0.0-0.2) 04/04/23 05:00 Baso # (Auto) 0.0 X10^3/uL (0.0-0.1) 04/04/23 05:00 Absolute Nucleated RBC 0.0 /100WBC 04/04/23 05:00 Total Counted 100 04/02/23 06:10 Neutrophils % (Manual) 90 % (39-76) H 04/02/23 06:10 Lymphocytes % (Manual) 5 % (13-43) L 04/02/23 06:10 Monocytes % (Manual) 5 % (4-9) 04/02/23 06:10 Plt Morphology Comment Normal (NORMAL) 04/02/23 06:10 RBC Morphology Normal (NORMAL) 04/02/23 06:10 ESR 56 MM/HOUR (0-15) H 04/03/23 05:12 Sample Site Rr 04/02/23 18:20 ABG pH 7.420 (7.35-7.45) 04/02/23 18:20 ABG pCO2 36.0 mmHg (35.0-45.0) 04/02/23 18:20 ABG pO2 81.0 mmHg (80.0-100.0) 04/02/23 18:20 ABG HCO3 23.4 mmol/L (22-26) 04/02/23 18:20 ABG O2 Saturation 96.0 % (90-100) 04/02/23 18:20 ABG Base Excess -0.7 mmol/L (-2.0-2.0) 04/02/23 18:20 Clint Test Pos 04/02/23 18:20 A-a Gradient 24.0 mmHg 04/02/23 18:20 FiO2 21.0 04/02/23 18:20 Blood Gas Comments Pt trista well cdn 04/02/23 18:20 Sodium 134 mmol/L (136-145) L 04/04/23 05:00 Corrected Sodium 140 mmol/L (136-145) 04/04/23 05:00 Potassium 3.4 mmol/L (3.5-5.1) L 04/04/23 05:00 Chloride 98 mmol/L (98-107) 04/04/23 05:00 Carbon Dioxide 18.6 mmol/L (21-32) L 04/04/23 05:00 BUN 9 mg/dL (7-18) 04/04/23 05:00 Creatinine 0.83 mg/dL (0.70-1.30) 04/04/23 05:00 Est GFR (MDRD) Af Amer > 60 (>60) 04/04/23 05:00 Est GFR (MDRD) Non-Af > 60 (>60) 04/04/23 05:00 Glucose 332 mg/dL (65-99) H 04/04/23 05:00 Lactic Acid 0.6 mmol/L (0.4-2.0) 04/03/23 05:12 Calcium 7.7 mg/dL (8.5-10.1) L 04/04/23 05:00 Corrected Calcium 9.2 mg/dL (8.5-10.1) 04/04/23 05:00 Magnesium 1.7 mg/dL (2.0-2.9) L 04/04/23 05:00 Total Bilirubin 0.30 mg/dL (0.2-1.0) 04/04/23 05:00 AST 16 Units/L (15-37) 04/04/23 05:00 ALT < 6 Units/L (12-78) L 04/04/23 05:00 Alkaline Phosphatase 81 Units/L (46-116) 04/04/23 05:00 C-Reactive Protein 54.10 mg/L (0-3.0) H 04/03/23 05:12 Total Protein 5.9 g/dL (6.4-8.2) L 04/04/23 05:00 Albumin 2.1 g/dL (3.4-5.0) L 04/04/23 05:00 Globulin 3.8 g/dL (2.5-4.5) 04/04/23 05:00 Albumin/Globulin Ratio 0.6 Ratio (1.1-2.1) L 04/04/23 05:00 Acetone, Semi-Quant Small (NEGATIVE) H 04/04/23 05:00 Plan (1) Diabetic ketoacidosis: Status: Acute Plan: DKA protocol STRICT I&OS (2) Sepsis: Status: Acute (3) Cellulitis of knee, left: Status: Acute (4) Cellulitis of knee, right: Status: Acute (5) Ulcer of knee due to secondary diabetes mellitus: Status: Acute (6) Acute renal insufficiency: Status: Acute
[2023-04-04] MEDS ORDERED: SNACK - Diabetic Appropriate PO SCH (20:00)
[2023-04-04] MEDS: SNACK - Diabetic Appropriate PO SCH (20:27)
[2023-04-04] MEDS ORDERED: PATIENT'S HOME MEDICATION PO SCH ×2 (21:00)
[2023-04-04] MEDS ORDERED: PATIENT'S HOME MEDICATION SC SCH (21:00)
--- NOTE | 2023-04-04 22:34 | DR.CONSULT ---
CONSULT Consultation for Day of: Date: 04/04/23 Chief Complaint Chief Complaint: wounds to both knees Allergies Allergies Allergy/AdvReac Type Severity Reaction Status Date / Time lorazepam [From Ativan] Allergy Verified 04/02/23 06:19 metoclopramide [From Reglan] Allergy Verified 04/02/23 06:19 oxycodone Allergy Verified 04/02/23 06:19 iodine AdvReac Severe ANAPHALEXIS Verified 04/02/23 06:19 REACTION History of Present Illness History of Present Illness: 27 yo with diabetes admitted with diabetic ketoacidosis. I have been asked to see in for a wounds to both knees. 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 He says he has an Achilles injury to the right leg. He is not supposed to bear weight and has been crawling on his knees and that is the source of these wounds. Past Medical History Past Medical History: Anxiety, Depression and Diabetes Past Surgical History Surgical History: No History Additional Surgical History: L BKA Family History Family Medical History: Cancer and Coronary Artery Disease Social History Does patient currently use any type of tobacco product: Yes Have you used tobacco products in the last 12 months: Yes Type of Tobacco Use: Cigarettes Does any household member use tobacco: No Alcohol Use: None Drug Use: Marijuana Medications Home Medications: lorazepam [From Ativan] Allergy (Verified 04/02/23 06:19) metoclopramide [From Reglan] Allergy (Verified 04/02/23 06:19) oxycodone Allergy (Verified 04/02/23 06:19) iodine Adverse Reaction (Severe, Verified 04/02/23 06:19) ANAPHALEXIS REACTION CONTINUE taking the following medications buspirone 15 mg tablet 30 mg PO BID 04/02/23 [History] cariprazine 1.5 mg capsule (Vraylar) 1.5 mg PO QDAY 04/02/23 [History] gabapentin 100 mg capsule 200 mg PO BID 04/02/23 [History] insulin glargine 100 unit/mL (3 mL) subcutaneous pen (Basaglar KwikPen U-100 Insulin) See Rx Instructions .Route .COMPLEX 04/02/23 [History] sertraline 100 mg tablet 100 mg PO QDAY 04/02/23 [History] trazodone 50 mg tablet 100 mg PO QPM PRN 04/02/23 [History] Review of Systems Constitutional: See HPI Eyes: No Symptoms Reported ENT: No Symptoms Reported Respiratory: No Symptoms Reported Cardiovascular: No Symptoms Reported Gastrointestinal: No Symptoms Reported Genitourinary: No Symptoms Reported Musculoskeletal: Other (History of left below knee amputation ) Skin: Other (wounds to knees over the patella bilaterally ) Physical Exam Vital Signs: Vital Signs Temperature 98 F Temperature 98.0 F Pulse Rate 88 Pulse Rate 80 Pulse Rate 82 Pulse Rate 83 Pulse Rate 82 Pulse Rate 78 Pulse Rate 75 Pulse Rate 79 Pulse Rate 87 Pulse Rate 92 Pulse Rate 96 Pulse Rate 96 Pulse Rate 102 Pulse Rate 93 Pulse Rate 97 Pulse Rate 99 Pulse Rate 93 Pulse Rate 91 Pulse Rate 91 Respiratory Rate 20 Respiratory Rate 24 Respiratory Rate 22 Respiratory Rate 20 Respiratory Rate 30 Respiratory Rate 25 Respiratory Rate 32 Respiratory Rate 51 Respiratory Rate 23 Respiratory Rate 24 Respiratory Rate 53 Respiratory Rate 35 Respiratory Rate 74 Respiratory Rate 20 Respiratory Rate 60 Respiratory Rate 35 Respiratory Rate 50 Respiratory Rate 28 Respiratory Rate 52 Blood Pressure 132/86 Blood Pressure 125/80 Blood Pressure 122/74 Blood Pressure 128/82 Blood Pressure 124/79 Blood Pressure 138/83 Blood Pressure 135/80 Blood Pressure 135/80 Blood Pressure 135/80 O2 Sat by Pulse Oximetry 100 O2 Sat by Pulse Oximetry 100 O2 Sat by Pulse Oximetry 100 O2 Sat by Pulse Oximetry 100 O2 Sat by Pulse Oximetry 99 O2 Sat by Pulse Oximetry 99 O2 Sat by Pulse Oximetry 99 O2 Sat by Pulse Oximetry 100 O2 Sat by Pulse Oximetry 100 O2 Sat by Pulse Oximetry 100 O2 Sat by Pulse Oximetry 100 O2 Sat by Pulse Oximetry 100 O2 Sat by Pulse Oximetry 100 O2 Sat by Pulse Oximetry 100 O2 Sat by Pulse Oximetry 99 O2 Sat by Pulse Oximetry 98 O2 Sat by Pulse Oximetry 100 O2 Sat by Pulse Oximetry 99 O2 Sat by Pulse Oximetry 100 Oriented: Normal, Time, Person and Place Eyes: Normal Ear: Normal Nose: Normal Throat: Normal Respiratory: Clear Throughout Cardiovascular: Normal : Normal Auscultation: Bowel Sounds: Normal Palpation: Normal Tenderness: Normal Skin: Wound (4 cm diameter by 3 mm deep wound over the right patella with no surrounding cellulitis. Small amount of exudate noted. Patient with multiple small ulcerations over the left patella with surrounding redness and induration ) Musculoskeletal: Left Psychiatric: Normal Mood Description: Depressed Affect: Angry Speech Pattern: Clear Plan (1) Diabetic ketoacidosis: Status: Acute Plan: as per the medical service (2) Sepsis: Status: Acute Plan: as per the medical service (3) Cellulitis of knee, left: Status: Acute Plan: IV antibiotics. Will add Santyl to each wound daily (4) Cellulitis of knee, right: Status: Acute Plan: IV antibiotics. Will add Santyl to each wound daily (5) Ulcer of knee due to secondary diabetes mellitus: Status: Acute (6) Acute renal insufficiency: Status: Acute
[2023-04-05] MEDS: NS 1,000 ML IV 1,000 ML IV SCH ×4 (04:13→19:09)
[2023-04-05] MEDS: ZOFRAN INJ 4 MG VIAL IVP PRN ×3 (04:14→19:09)
[2023-04-05 05:28] LABS: BASOPHILS % (AUTO) 0.3 % (0.2-1.0); EOSINOPHILS # (AUTO) 0.1 x10^3/uL (0.0-0.2); HEMATOCRIT 31.5 % (42.0-54.0); LYMPHOCYTES # (AUTO) 1.3 X10^3/uL (1.3-2.9); LYMPHOCYTES % (AUTO) 20.5 % (21.0-51.0); MEAN CORPUSCULAR HEMOGLOBIN 29.6 pg (27.0-34.0); MEAN CORPUSCULAR HGB CONC 34.9 g/dL (33.0-35.0); MEAN CORPUSCULAR VOLUME 84.7 fL (80.0-100.0); MEAN PLATELET VOLUME 8.1 fL (7.4-11.0); MONOCYTES # (AUTO) 0.4 x10^3/uL (0.3-0.8); MONOCYTES % (AUTO) 5.6 % (0.0-13.0); NEUTROPHILS # (AUTO) 4.6 x10^3/uL (2.2-4.8); NEUTROPHILS % (AUTO) 71.6 % (42.0-75.0); PLATELET COUNT 443 X10^3/uL (150.0-450.0); RED BLOOD COUNT 3.72 X10^6/uL (4.7-6.0); RED CELL DISTRIBUTION WIDTH 13.1 % (11.6-16.5); WHITE BLOOD COUNT 6.4 X10^3/uL (3.6-10.0)
[2023-04-05 05:39] LABS: ALANINE AMINOTRANSFERASE 7 Units/L (12-78); ALBUMIN 2.2 g/dL (3.4-5.0); ALKALINE PHOSPHATASE 77 Units/L (46-116); ASPARTATE AMINO TRANSFERASE 19 Units/L (15-37); BLOOD UREA NITROGEN 5 mg/dL (7-18); CALCIUM 7.5 mg/dL (8.5-10.1); CARBON DIOXIDE 26.1 mmol/L (21-32); CHLORIDE 102 mmol/L (98-107); COR CA(FOR HYPOALB) 8.9 mg/dL (8.5-10.1); COR NA(FOR HYPERGLY) 141 mmol/L (136-145); CREATININE 0.76 mg/dL (0.70-1.30); GLUCOSE 175 mg/dL (65-99); MAGNESIUM 1.9 mg/dL (2.0-2.9); SODIUM 139 mmol/L (136-145); eGFR NON BLACK RACES > 60 (>60)
[2023-04-05 05:47] LABS: POTASSIUM 2.9 mmol/L (3.5-5.1)
[2023-04-05] MEDS ORDERED: CONSULT PHARMACY - POTASSIUM & MAGNESIUM XX SCH (06:00)
[2023-04-05] MEDS ORDERED: PHARMACY COMMENT IV NR (08:30)
[2023-04-05] MEDS: BUSPAR PO SCH ×2 (08:55→21:30)
[2023-04-05] MEDS: MAG-OX TAB PO SCH ×2 (08:55→10:52)
[2023-04-05] MEDS: K-DUR TAB 20 MEQ PO SCH ×3 (08:56→13:42)
[2023-04-05] MEDS: PROTONIX INJ 40 MG VIAL IVP SCH ×2 (08:57→21:29)
[2023-04-05] MEDS ORDERED: LANTUS SC SCH ×2 (09:00)
[2023-04-05] MEDS: PATIENT'S HOME MEDICATION SC SCH (09:06)
[2023-04-05] MEDS: MAXIPIME VIAL 2 GRAMS 2 G in NS 100 ML IV 100 ML IV SCH ×2 (09:06→20:55)
[2023-04-05 09:16] LABS: CREATININE 0.67 mg/dL (0.70-1.30); VANCOMYCIN,TROUGH < 2.0 ug/mL (15-20)
[2023-04-05] MEDS: VANCOMYCIN IV *PREMIX 1 G/200 ML BAG 1 G/200 ML PIGGYBACK IV SCH (09:53)
--- NOTE | 2023-04-05 12:07 | PCM.PROG ---
Progress Note Progress Note for Day of Date of Exam: 04/05/23 Subjective Subjective: Pt is a 27 year old male admitted for diabetic ketoacidosis and cellulitis of knees. This morning resting in bed comfortably. No acute events overnight. Labs: Wbc 6.4, Hgb 11, Plt 443, Na 139, K 2.9, Creatinine 0.76, Glucose 175. Pt is currently receiving IVF NS@150ml/h, antibiotics: Cefepime and Vancomycin. Start diabetic diet. Hypokalemia on labs, replete per protocol. MRSA + on wound culture. Home Basaglar 15 units in the AM and 30 units at night along with sliding scale insulin resumed. Otherwise, continue with current treatment plan. Continue to monitor and follow up labs. Past Medical Family Social History Allergies: Allergies lorazepam [From Ativan] Allergy (Verified 04/02/23 06:19) metoclopramide [From Reglan] Allergy (Verified 04/02/23 06:19) oxycodone Allergy (Verified 04/02/23 06:19) iodine Adverse Reaction (Severe, Verified 04/02/23 06:19) ANAPHALEXIS REACTION Review of Systems ROS changes noted: see HPI Vital Signs and I&O's Vital Signs: Vital Signs Temperature 98.6 F Pulse Rate 83 Pulse Rate 86 Pulse Rate 85 Pulse Rate 86 Pulse Rate 75 Pulse Rate 79 Respiratory Rate 17 Respiratory Rate 17 Respiratory Rate 17 Respiratory Rate 17 Respiratory Rate 20 Respiratory Rate 23 Blood Pressure 138/86 Blood Pressure 142/88 Blood Pressure 135/90 Blood Pressure 142/88 Blood Pressure 127/80 Blood Pressure 120/77 O2 Sat by Pulse Oximetry 100 O2 Sat by Pulse Oximetry 100 O2 Sat by Pulse Oximetry 100 O2 Sat by Pulse Oximetry 100 O2 Sat by Pulse Oximetry 100 O2 Sat by Pulse Oximetry 99 Intake and Output: Intake & Output 04/02/23 04/03/23 04/04/23 04/05/23 23:59 23:59 23:59 23:59 Intake Total 7308 / 7308 3900 / 3900 4078 / 4078 1002 / 1002 Output Total 1225 / 1225 1050 / 1050 4700 / 4700 100 / 100 Balance 6083 / 6083 2850 / 2850 -622 / -622 902 / 902 Physical Exam Oriented: Normal, Time, Person and Place Eyes: Normal Ear: Normal Nose: Normal Throat: Normal Respiratory: Normal Cardiovascular: Normal : Normal Auscultation: Bowel Sounds: Normal Tenderness: Normal Skin: Wound (4 cm diameter by 3 mm deep wound over the right patella with no surrounding cellulitis. Small amount of exudate noted. Patient with multiple small ulcerations over the left patella with surrounding redness and induration ) Musculoskeletal: Left Psychiatric: Normal Mood Description: Depressed Affect: Angry Speech Pattern: Clear and Appropriate Laboratory and Diagnostics 04/05/23 04:20 04/05/23 08:47 Labs: 04/02/23 07:27 Knee - Left Wound Gram Stain - Final 04/02/23 07:27 Knee - Left Wound Culture - Final Staphylococcus Aureus 04/02/23 07:27 Knee - Right Wound Gram Stain - Final 04/02/23 07:27 Knee - Right Wound Culture - Final Staphylococcus Aureus 04/02/23 07:27 Toe - Right Second Wound Gram Stain - Final 04/02/23 07:27 Toe - Right Second Wound Culture - Final Staphylococcus Aureus 04/02/23 07:27 Foot - Right Wound Gram Stain - Final 04/02/23 07:27 Foot - Right Wound Culture - Final Methicillin Resis Staph Aureus 04/02/23 06:50 Blood Blood Culture - Preliminary 04/02/23 06:43 Blood Blood Culture - Preliminary Laboratory WBC 6.4 X10^3/uL (3.6-10.0) 04/05/23 04:20 RBC 3.72 X10^6/uL (4.7-6.0) L 04/05/23 04:20 Hgb 11.0 g/dL (13.5-18.0) L 04/05/23 04:20 Hct 31.5 % (42.0-54.0) L 04/05/23 04:20 MCV 84.7 fL (80.0-100.0) 04/05/23 04:20 MCH 29.6 pg (27.0-34.0) 04/05/23 04:20 MCHC 34.9 g/dL (33.0-35.0) 04/05/23 04:20 RDW 13.1 % (11.6-16.5) 04/05/23 04:20 Plt Count 443 X10^3/uL (150.0-450.0) 04/05/23 04:20 Plt Count Comment Adequate (ADEQUATE) 04/02/23 06:10 MPV 8.1 fL (7.4-11.0) 04/05/23 04:20 Neut % (Auto) 71.6 % (42.0-75.0) 04/05/23 04:20 Lymph % (Auto) 20.5 % (21.0-51.0) L 04/05/23 04:20 [place] % (Auto) 5.6 % (0.0-13.0) 04/05/23 04:20 Eos % (Auto) 2.0 % (0.9-2.9) 04/05/23 04:20 Baso % (Auto) 0.3 % (0.2-1.0) 04/05/23 04:20 Neut # (Auto) 4.6 x10^3/uL (2.2-4.8) 04/05/23 04:20 Lymph # (Auto) 1.3 X10^3/uL (1.3-2.9) 04/05/23 04:20 [place] # (Auto) 0.4 x10^3/uL (0.3-0.8) 04/05/23 04:20 Eos # (Auto) 0.1 x10^3/uL (0.0-0.2) 04/05/23 04:20 Baso # (Auto) 0.0 X10^3/uL (0.0-0.1) 04/05/23 04:20 Absolute Nucleated RBC 0.0 /100WBC 04/05/23 04:20 Total Counted 100 04/02/23 06:10 Neutrophils % (Manual) 90 % (39-76) H 04/02/23 06:10 Lymphocytes % (Manual) 5 % (13-43) L 04/02/23 06:10 Monocytes % (Manual) 5 % (4-9) 04/02/23 06:10 Plt Morphology Comment Normal (NORMAL) 04/02/23 06:10 RBC Morphology Normal (NORMAL) 04/02/23 06:10 ESR 56 MM/HOUR (0-15) H 04/03/23 05:12 Sample Site Rr 04/02/23 18:20 ABG pH 7.420 (7.35-7.45) 04/02/23 18:20 ABG pCO2 36.0 mmHg (35.0-45.0) 04/02/23 18:20 ABG pO2 81.0 mmHg (80.0-100.0) 04/02/23 18:20 ABG HCO3 23.4 mmol/L (22-26) 04/02/23 18:20 ABG O2 Saturation 96.0 % (90-100) 04/02/23 18:20 ABG Base Excess -0.7 mmol/L (-2.0-2.0) 04/02/23 18:20 Clint Test Pos 04/02/23 18:20 A-a Gradient 24.0 mmHg 04/02/23 18:20 FiO2 21.0 04/02/23 18:20 Blood Gas Comments Pt trista well cdn 04/02/23 18:20 Sodium 139 mmol/L (136-145) 04/05/23 04:20 Corrected Sodium 141 mmol/L (136-145) 04/05/23 04:20 Potassium 2.9 mmol/L (3.5-5.1) L* 04/05/23 04:20 Chloride 102 mmol/L (98-107) 04/05/23 04:20 Carbon Dioxide 26.1 mmol/L (21-32) 04/05/23 04:20 BUN 5 mg/dL (7-18) L 04/05/23 04:20 Creatinine 0.67 mg/dL (0.70-1.30) L 04/05/23 08:47 Est GFR (MDRD) Af Amer > 60 (>60) 04/05/23 04:20 Est GFR (MDRD) Non-Af > 60 (>60) 04/05/23 04:20 Glucose 175 mg/dL (65-99) H 04/05/23 04:20 Lactic Acid 0.6 mmol/L (0.4-2.0) 04/03/23 05:12 Calcium 7.5 mg/dL (8.5-10.1) L 04/05/23 04:20 Corrected Calcium 8.9 mg/dL (8.5-10.1) 04/05/23 04:20 Magnesium 1.9 mg/dL (2.0-2.9) L 04/05/23 04:20 Total Bilirubin 0.30 mg/dL (0.2-1.0) 04/05/23 04:20 AST 19 Units/L (15-37) 04/05/23 04:20 ALT 7 Units/L (12-78) L 04/05/23 04:20 Alkaline Phosphatase 77 Units/L (46-116) 04/05/23 04:20 C-Reactive Protein 54.10 mg/L (0-3.0) H 04/03/23 05:12 Total Protein 6.0 g/dL (6.4-8.2) L 04/05/23 04:20 Albumin 2.2 g/dL (3.4-5.0) L 04/05/23 04:20 Globulin 3.8 g/dL (2.5-4.5) 04/05/23 04:20 Albumin/Globulin Ratio 0.6 Ratio (1.1-2.1) L 04/05/23 04:20 Vancomycin Trough < 2.0 ug/mL (15-20) L 04/05/23 08:47 Acetone, Semi-Quant Small (NEGATIVE) H 04/04/23 05:00 Plan (1) Diabetic ketoacidosis: Status: Acute Plan: DKA protocol STRICT I&OS (2) Sepsis: Status: Acute (3) Cellulitis of knee, left: Status: Acute (4) Cellulitis of knee, right: Status: Acute (5) Ulcer of knee due to secondary diabetes mellitus: Status: Acute (6) Acute renal insufficiency: Status: Acute
[2023-04-05] MEDS: PHENERGAN INJ 25 MG IM PRN ×2 (13:46→22:56)
[2023-04-05] MEDS: SNACK - Diabetic Appropriate PO SCH (19:09)
[2023-04-05] MEDS ORDERED: NS 100 ML IV 100 ML ONE (20:34)
[2023-04-05] MEDS ORDERED: MAXIPIME VIAL 1 GRAM ONE (20:37)
[2023-04-05] MEDS ORDERED: PATIENT'S HOME MEDICATION SC SCH (21:00)
[2023-04-06] MEDS: NS 1,000 ML IV 1,000 ML IV SCH ×3 (05:38→13:42)
[2023-04-06 05:47] LABS: BASOPHILS % (AUTO) 0.5 % (0.2-1.0); EOSINOPHILS # (AUTO) 0.3 x10^3/uL (0.0-0.2); EOSINOPHILS % (AUTO) 3.7 % (0.9-2.9); HEMATOCRIT 33.5 % (42.0-54.0); HEMOGLOBIN 11.6 g/dL (13.5-18.0); LYMPHOCYTES # (AUTO) 1.9 X10^3/uL (1.3-2.9); LYMPHOCYTES % (AUTO) 27.1 % (21.0-51.0); MEAN CORPUSCULAR HEMOGLOBIN 29.3 pg (27.0-34.0); MEAN CORPUSCULAR HGB CONC 34.7 g/dL (33.0-35.0); MEAN CORPUSCULAR VOLUME 84.3 fL (80.0-100.0); MEAN PLATELET VOLUME 7.9 fL (7.4-11.0); MONOCYTES # (AUTO) 0.5 x10^3/uL (0.3-0.8); NEUTROPHILS # (AUTO) 4.3 x10^3/uL (2.2-4.8); NEUTROPHILS % (AUTO) 61.7 % (42.0-75.0); PLATELET COUNT 483 X10^3/uL (150.0-450.0); RED BLOOD COUNT 3.98 X10^6/uL (4.7-6.0); RED CELL DISTRIBUTION WIDTH 13.3 % (11.6-16.5)
[2023-04-06 06:01] LABS: ALANINE AMINOTRANSFERASE 8 Units/L (12-78); ALBUMIN 2.3 g/dL (3.4-5.0); ALKALINE PHOSPHATASE 74 Units/L (46-116); ASPARTATE AMINO TRANSFERASE 19 Units/L (15-37); BLOOD UREA NITROGEN 3 mg/dL (7-18); CALCIUM 7.6 mg/dL (8.5-10.1); CARBON DIOXIDE 28.6 mmol/L (21-32); CHLORIDE 102 mmol/L (98-107); CREATININE 0.63 mg/dL (0.70-1.30); GLUCOSE 89 mg/dL (65-99); SODIUM 139 mmol/L (136-145); eGFR NON BLACK RACES > 60 (>60)
[2023-04-06 06:02] LABS: POTASSIUM 2.8 mmol/L (3.5-5.1)
[2023-04-06] MEDS ORDERED: CONSULT PHARMACY - POTASSIUM & MAGNESIUM XX SCH (07:00)
[2023-04-06] MEDS: VANCOMYCIN IV *PREMIX 1 G/200 ML BAG 1 G/200 ML PIGGYBACK IV SCH ×2 (08:21→13:42)
[2023-04-06] MEDS: PROTONIX INJ 40 MG VIAL IVP SCH (08:21)
[2023-04-06] MEDS: BUSPAR PO SCH (10:16)
[2023-04-06] MEDS: K-DUR TAB 20 MEQ PO SCH ×3 (10:16→13:41)
[2023-04-06] MEDS: PATIENT'S HOME MEDICATION SC SCH (10:19)
[2023-04-06] MEDS: MAXIPIME VIAL 2 GRAMS 2 G in NS 100 ML IV 100 ML IV SCH (10:23)
[2023-04-06 12:55] VITALS: TEMP 98.1
[2023-04-06 17:27] VITALS: O2SAT 100
--- NOTE | 2023-04-06 17:47 | NOTE.SOAP ---
Soap Note Note for Day of Date of Exam: 04/06/23 Subjective Data Subjective Data: Patient with brittle diabetes and DKA with wounds to both knees. Objective Data Temperature: 98.1 F Pulse Rate: 91 Respiratory Rate: 21 O2 Sat by Pulse Oximetry: 100 Objective Data: I did not view wounds today as the patient was talking of signing out AMA. Assessment Assessment: wound both knees . Plan Plan: Continue antibiotics and Santyl to the wounds .
[2023-04-06 18:07] VITALS: BP 150/93; PULSE 81; RESP 20
[2023-04-06] MEDS ORDERED: SANTYL ONE (18:54)
[2023-04-06] MEDS ORDERED: K-DUR TAB 20 MEQ PO SCH (19:00)
[2023-04-06] MEDS ORDERED: SANTYL EXT SCH (22:00)
[2023-04-07] MEDS ORDERED: PHARMACY COMMENT IV ONE (05:30)
== END 2023-04-06 19:09 | disposition home or self-care (01) | DRG 638 ==
LOC: ER 05:53 → ICU 08:09
PROVIDERS: ADMIT Internal Medicine; ATTEND Internal Medicine
DX: L89.899 Pressure ulcer of other site, unspecified stage; N28.9 Disorder of kidney and ureter, unspecified; L03.115 Cellulitis of right lower limb; E10.10 Type 1 diabetes mellitus with ketoacidosis without coma; E86.0 Dehydration; B95.62 Methicillin resistant Staphylococcus aureus infection as the cause of diseases classified elsewhere; I25.10 Atherosclerotic heart disease of native coronary artery without angina pectoris; R79.82 Elevated C-reactive protein (CRP); L03.116 Cellulitis of left lower limb; E10.622 Type 1 diabetes mellitus with other skin ulcer; Z89.512 Acquired absence of left leg below knee; E87.6 Hypokalemia; R70.0 Elevated erythrocyte sedimentation rate; R53.1 Weakness; R00.0 Tachycardia, unspecified; B95.61 Methicillin susceptible Staphylococcus aureus infection as the cause of diseases classified elsewhere